=== PATIENT | male | born 1955 | race Caucasian/White ===

== ENCOUNTER 2016-12-02 15:06 | Emergency (ER) | payer BC ==
[2016-12-02] MEDS ORDERED: Sodium Chloride 0.9% 2.5 ML Syringe FLUSH PRN (15:27)
[2016-12-02] MEDS ORDERED: Sodium Chloride 0.9% 10 ML Syringe FLUSH PRN (15:27)
--- NOTE | 2016-12-02 15:27 | EDM.PDOC ---
ED HPI GENERAL MEDICAL PROBLEM - General Chief Complaint: Abdominal Pain Stated Complaint: RIGHT SIDE IN PAIN Time Seen by Provider: 12/02/16 15:25 Source of Information: Reports: Patient, Family History Limitations: Reports: No Limitations - History of Present Illness INITIAL COMMENTS - FREE TEXT/NARRATIVE: HISTORY AND PHYSICAL: []61-year-old male presenting with right sided lower quadrant pain History of Present Illness: []Pain began this morning and has gradually worsened throughout the day Patient ate pizza for lunch without any difficulties History of kidney stones History of hematuria Review of Systems: As per history of present illness and below otherwise all systems reviewed and negative. Past medical history: As per history of present illness and as reviewed below otherwise noncontributory. Surgical history: As per history of present illness and as reviewed below otherwise noncontributory. Social history: No reported history of drug or alcohol abuse. Family history: As per history of present illness and as reviewed below otherwise noncontributory. Physical exam: Alert gentleman who looks nontoxic speaking in full sentences without shortness of breath HEENT: Atraumatic, normocehpalic, pupils reactive, negative for conjunctival pallor or scleral icterus, mucous membranes moist, throat clear, neck supple, nontender, trachea midline. Lungs: Clear to auscultation, breath sounds equal bilaterally, chest non tender. Heart: S1S2, regular, negative for clicks, rubs, or JVD. Abdomen: Soft, rounded, mild tenderness no rebound no guarding. Negative for masses or hepatossplenmegaly. Negative for costovertebral tenderness. Pelvis: Stable nontender. Genitourinary: Deferred. Rectal: Deferred Extremities: Atraumatic, negative for cords or calf pain. Neurovascular unremarkable. Neuro: Awake, alert, oriented. Cranial nerves II through XII unremarkable. Cerebellum unremarkable. Motor and sensory unremarkable throughout. Exam nonfocal. Discussed with patient and his the nonspecific results of his CT abdomen pelvis. No gross abnormalities are evident. There is some stool on the right side insistent for his pain is. also gas. Diagnostics: [CT abdomen pelvis with contrast] UA urine culture CBC CMP and lipase amylase Therapeutics: [Normal saline ] Impression: [Abdominal pain Chronic hematuria] Plan: [Discharged to home Follow up with Dr. Frederick as discussed for the hematuria See your primary care provider this week for follow-up] Definitive disposition and diagnosis as appropriate pending reevaluation and review of above. Onset: Today, Gradual Abdominal Pain Score (Numeric/FACES): 4 - Related Data Allergies Allergy/AdvReac Type Severity Reaction Status Date / Time polyethylene glycol 3350 Allergy Nausea and Verified 12/02/16 15:13 [From Miralax] Vomiting Home Meds: Home Meds Albuterol Sulfate [Proair Hfa] 1 - 2 puff INH Q4H PRN 02/26/16 [History] Past Medical History HEENT History: Reports: Allergic Rhinitis, Glaucoma Other HEENT History: wears glasses Cardiovascular History: Reports: None Respiratory History: Reports: None Gastrointestinal History: Reports: None Other Gastrointestinal History: abdominal hernia Genitourinary History: Reports: None Other Genitourinary History: having a "bladder test" with Dr. Frederick today Musculoskeletal History: Reports: None Other Musculoskeletal History: hip and knee pain Neurological History: Reports: Seizure Other Neuro History: 20 years ago, had 5 seizures in 5 days (due to "exhaustion ") Psychiatric History: Reports: None Endocrine/Metabolic History: Reports: Obesity/BMI 30+ Hematologic History: Reports: None Immunologic History: Reports: None Oncologic (Cancer) History: Reports: None Dermatologic History: Reports: None - Infectious Disease History Infectious Disease History: Reports: Chicken Pox, Measles - Past Surgical History Head Surgeries/Procedures: Reports: None Cardiovascular Surgical History: Reports: None Respiratory Surgical History: Reports: None GI Surgical History: Reports: Colonoscopy, EGD, Hernia, Abdominal, Hernia Repair /Other Endocrine Surgical History: Reports: None Neurological Surgical History: Reports: None Oncologic Surgical History: Reports: None Social & Family History - Tobacco Use Smoking Status *Q: Former Smoker Years of Tobacco use: 43 Packs/Tins Daily: 2 Used Tobacco, but Quit: Yes Month Tobacco Last Used: 18 - Alcohol Use Days Per Week of Alcohol Use: 1 Number of Drinks Per Day: 3 Total Drinks Per Week: 3 - Recreational Drug Use Recreational Drug Use: No Drug Use in Last 12 Months: No ED ROS GENERAL - Review of Systems Review Of Systems: ROS reveals no pertinent complaints other than HPI. ED EXAM, RENAL/ - Physical Exam Exam: See Below (See dictation) Course - Vital Signs Last Recorded V/S: Last Vital Signs Temp 36.4 C 12/02/16 15:13 Pulse 74 12/02/16 15:13 Resp 16 09/18/17 15:13 BP 165/83 H 12/02/16 15:13 Pulse Ox 96 12/02/16 15:13 - Orders/Labs/Meds Orders: Active Orders 24 hr Category Date Time Status Abdomen Pelvis w Cont [CT] Stat Exams 12/02/16 15:28 Taken CULTURE URINE [RM] Stat Lab 12/02/16 16:13 Received Sodium Chloride 0.9% [Saline Flush] Med 12/02/16 15:27 Active 10 ml FLUSH ASDIRECTED PRN Sodium Chloride 0.9% [Saline Flush] Med 12/02/16 15:27 Active 2.5 ml FLUSH ASDIRECTED PRN Saline Lock Insert [OM.PC] Stat Oth 12/02/16 15:27 Ordered Medication Orders Sodium Chloride (Saline Flush) 10 ml FLUSH ASDIRECTED PRN PRN Reason: Keep Vein Open Last Admin: 12/02/16 15:44 Dose: 10 ml Sodium Chloride (Saline Flush) 2.5 ml FLUSH ASDIRECTED PRN PRN Reason: Keep Vein Open Last Admin: 12/02/16 15:44 Dose: 2.5 ml Labs: Laboratory Tests 12/02/16 12/02/16 12/02/16 Range/Units 15:40 15:40 16:13 WBC 5.85 (4.0-11.0) K/uL RBC 5.22 (4.50-5.90) M/uL Hgb 15.8 (13.0-17.0) g/dL Hct 45.5 (38.0-50.0) % MCV 87.2 (80.0-98.0) fL MCH 30.3 (27.0-32.0) pg MCHC 34.7 (31.0-37.0) g/dL RDW Std Deviation 43.1 (28.0-62.0) fl RDW Coeff of Bryn 14 (11.0-15.0) % Plt Count 216 (150-400) K/uL MPV 9.70 (7.40-12.00) fL Neut % (Auto) 55.9 (48.0-80.0) % Lymph % (Auto) 27.7 (16.0-40.0) % Larue % (Auto) 14.0 (0.0-15.0) % Eos % (Auto) 1.7 (0.0-7.0) % Baso % (Auto) 0.7 (0.0-1.5) % Neut # (Auto) 3.3 (1.4-5.7) K/uL Lymph # (Auto) 1.6 (0.6-2.4) K/uL Larue # (Auto) 0.8 (0.0-0.8) K/uL Eos # (Auto) 0.1 (0.0-0.7) K/uL Baso # (Auto) 0.0 (0.0-0.1) K/uL Nucleated RBC % 0.0 /100WBC Nucleated RBCs # 0 K/uL Sodium 141 (136-146) mmol/L Potassium 4.1 (3.5-5.1) mmol/L Chloride 107 (98-110) mmol/L Carbon Dioxide 24 (21-31) mmol/L BUN 18 (6.0-23.0) mg/dL Creatinine 1.4 (0.6-1.5) mg/dL Est Cr Clr Drug Dosing 52.46 mL/min Estimated GFR (MDRD) 51.7 ml/min Glucose 118 H (60-110) mg/dL Calcium 9.0 (8.8-10.8) mg/dL Total Bilirubin 0.6 (0.1-1.5) mg/dL AST 28 (5-40) IU/L ALT 57 H (8-54) IU/L Alkaline Phosphatase 109 (40-150) Total Protein 7.2 (6.0-8.0) g/dL Albumin 4.2 (3.4-4.8) g/dL Globulin 3.0 (2.0-3.5) g/dL Albumin/Globulin Ratio 1.4 (1.3-2.8) Amylase 56 (10-90) U/L Lipase 35 (7-80) U/L Urine Color YELLOW Urine Appearance CLEAR Urine pH 6.0 (5.0-8.0) Ur Specific [place] 1.025 (1.001-1.035) Urine Protein NEGATIVE (NEGATIVE) mg/dL Urine Glucose (UA) NEGATIVE (NEGATIVE) mg/dL Urine Ketones NEGATIVE (NEGATIVE) mg/dL Urine Occult Blood LARGE H (NEGATIVE) Urine Nitrite NEGATIVE (NEGATIVE) Urine Bilirubin NEGATIVE (NEGATIVE) Urine Urobilinogen 0.2 (<2.0) EU/dL Ur Leukocyte Esterase NEGATIVE (NEGATIVE) Urine RBC 60-65 (0-2/HPF) Urine WBC 0-1 (0-5/HPF) Ur Epithelial Cells FEW (NONE-FEW) Urine Bacteria FEW (NEGATIVE) Meds: Medications Generic Name Dose Route Start Last Admin Trade Name Freq PRN Reason Stop Dose Admin Sodium Chloride 10 ml 12/02/16 15:27 12/02/16 15:44 Saline Flush FLUSH 10 ml ASDIRECTED PRN Administration Keep Vein Open Sodium Chloride 2.5 ml 12/02/16 15:27 12/02/16 15:44 Saline Flush FLUSH 2.5 ml ASDIRECTED PRN Administration Keep Vein Open Discontinued Medications Generic Name Dose Route Start Last Admin Trade Name Freq PRN Reason Stop Dose Admin Sodium Chloride 1,000 mls @ 999 mls/hr 12/02/16 15:28 12/02/16 15:44 Normal Saline IV 12/02/16 16:28 999 mls/hr STAT ONE Administration Iopamidol 75 ml 12/02/16 16:53 12/02/16 17:03 Isovue Multipack-370 (76%) IVPUSH 12/02/16 16:54 75 ml ONETIME STA Administration Departure - Departure Time of Disposition: 17:37 Disposition: Home, Self-Care 01 Condition: Good Clinical Impression: Abdominal pain Qualifiers: Abdominal location: right lower quadrant Qualified Code(s): R10.31 - Right lower quadrant pain - Discharge Information Instructions: Abdominal Pain, Adult, [id number] Referrals: PCP,None [Primary Care Provider] - Forms: ED Department Discharge Additional Instructions: The following information is given to patients seen in the emergency department who are being discharged to home. This information is to outline your options for follow-up care. We provide all patients seen in our emergency department with a follow-up referral. The need for follow-up, as well as the timing and circumstances, are variable depending upon the specifics of your emergency department visit. If you don't have a primary care physician on staff, we will provide you with a referral. We always advise you to contact your personal physician following an emergency department visit to inform them of the circumstance of the visit and for follow-up with them and/or the need for any referrals to a consulting specialist. The emergency department will also refer you to a specialist when appropriate. This referral assures that you have the opportunity for followup care with a specialist. All of these measure are taken in an effort to provide you with optimal care, which includes your followup. Under all circumstances we always encourage you to contact your private physician who remains a resource for coordinating your care. When calling for followup care, please make the office aware that this follow-up is from your recent emergency room visit. If for any reason you are refused follow-up, please contact the [facility] emergency department at and asked to speak to the emergency department charge nurse. Please follow-up with Dr. Frederick as discussed Return if symptoms worsen overnight Follow-up with your primary care provider this week and call for an appointment - My Orders Last 24 Hours: My Active Orders 12/02/16 15:27 Sodium Chloride 0.9% [Saline Flush] 10 ml FLUSH ASDIRECTED PRN Sodium Chloride 0.9% [Saline Flush] 2.5 ml FLUSH ASDIRECTED PRN Saline Lock Insert [OM.PC] Stat 12/02/16 15:28 Abdomen Pelvis w Cont [CT] Stat 12/02/16 16:13 CULTURE URINE [RM] Stat - Assessment/Plan Last 24 Hours: My Active Orders 12/02/16 15:27 Sodium Chloride 0.9% [Saline Flush] 10 ml FLUSH ASDIRECTED PRN Sodium Chloride 0.9% [Saline Flush] 2.5 ml FLUSH ASDIRECTED PRN Saline Lock Insert [OM.PC] Stat 12/02/16 15:28 Abdomen Pelvis w Cont [CT] Stat 12/02/16 16:13 CULTURE URINE [RM] Stat
[2016-12-02] MEDS ORDERED: Sodium Chloride 0.9% 1,000 ML IV ONE (15:28)
[2016-12-02] MEDS ORDERED: Iopamidol 755 MG/ML 500 ML Multipack Bottle IVPUSH STA (16:53)
[2016-12-02 18:25] VITALS: BP 173/89
--- NOTE | 2016-12-03 11:27 | CT ---
EXAM DATE: 12/02/16 PATIENT'S AGE: 61 Patient: FAHAD MARTÍNEZ Facility: [place], [place] Site . Site : 1955 Study: CT Abdomen/Pelvis [id number]/18/2017 5:09:24 PM Ordering Physician: Doctor Romeo Final Report: INDICATION: Right lower quadrant pain, onset earlier today. TECHNIQUE: CT abdomen and pelvis acquired with i.v. 75 mL Isovue 370. Coronal and sagittal reformats were obtained. COMPARISON: None FINDINGS: Intensive Care Nurse CT images: Nonobstructive bowel gas pattern. Lower chest: Unremarkable. Liver: Diffuse low attenuation to the liver parenchyma. Spleen: Unremarkable. Pancreas: Unremarkable. Gallbladder and bile ducts: Unremarkable. Kidneys: Unremarkable. No kidney or ureteral stones and no hydronephrosis seen. Adrenal glands: Unremarkable. GI tract: Unremarkable. The appendix is normal in appearance and size. Vascular: Unremarkable. Lymph nodes: Unremarkable. Miscellaneous: Unremarkable. No pneumoperitoneum is seen. No significant ascites is noted. Pelvic Organs: Unremarkable. Bones: Unremarkable for age. IMPRESSION: 1. Normal appendix. 2. No clear etiology identified for patient`s clinical symptoms of right lower quadrant abdominal pain. 3. Fatty infiltration of liver. Dictated by Tray Caldwell MD @ 12/02/2016 5:25:22 PM Dictated by: Tray Caldwell MD @ 12/02/2016 17:25:31 (Electronic Signature) Report Signed by Proxy. MONTEFI[facility] NYACK HOSPITALJasper
== END 2016-12-02 18:05 | disposition home or self-care (01) ==
LOC: MW.ED 15:06
DX: R10.31 Right lower quadrant pain (principal); R31.9 Hematuria, unspecified; E66.9 Obesity, unspecified; Z87.891 Personal history of nicotine dependence; Z68.39 Body mass index [BMI] 39.0-39.9, adult
CPT/HCPCS: 36415; 74177; 80053; 81001; 82150; 83690; 85025; 87086; 96360; 99284; J7040; Q9967; 99283

== ENCOUNTER 2017-08-01 06:45 | Day surgery (SDC) | payer OTHER ==
[~2017-08-01 06:45] MED LIST: Lactated Ringers 1,000 ML IV SCH
[2017-08-01] MEDS ORDERED: Lidocaine 2% 5 ML SDV ONE (09:59)
[2017-08-01] MEDS ORDERED: fentaNYL 100 MCG/2 ML SDV ONE (10:00)
[2017-08-01] MEDS ORDERED: Propofol 200 MG/20 ML SDV ONE (10:00)
[2017-08-01] MEDS ORDERED: Midazolam 1 MG/ML 2 ML SDV ONE (10:00)
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
--- NOTE | 2017-08-01 12:41 | CR ---
EXAMINATION: Portable chest radiograph. HISTORY: Distention. FINDINGS: The trachea is midline. The cardiomediastinal silhouette is within normal limits. Mild left basilar a telectasis. No pleural effusion or pneumothorax. No free air under the diaphragm. Osseous structures appear unremarkable. IMPRESSION: No acute cardiopulmonary process.
--- NOTE | 2017-08-01 12:45 | PCM.POSTAN ---
POST ANESTHESIA ASSESSMENT - MENTAL STATUS Mental Status: Alert, Oriented - VITAL SIGNS Pulse Rate: 77 SaO2: 95 (RA) Resp Rate: 12 Blood Pressure: 143/89 - RESPIRATORY Respiratory Status: Respiratory Rate WNL, Airway Patent, O2 Saturation Stable - CARDIOVASCULAR CV Status: Pulse Rate WNL, Blood Pressure Stable - GASTROINTESTINAL GI Status: No Symptoms - PAIN Pain Score: 0 - POST OP HYDRATION Hydration Status: Adequate & Stable - OBSERVATIONS Free Text/Narrative:: CXR done - negative report per Dr. Kennedy and patient without pain. Expect patient to proceed to phase II recovery.
--- NOTE | 2017-08-01 12:55 | PCM.OPNOTE ---
- General Post-Op/Procedure Note Date of Surgery/Procedure: 08/01/17 Findings: see dict [id number] Pre Op Diagnosis: change in bowel habits and gerd Post-Op Diagnosis: Same Anesthesia Technique: Moderate Sedation Primary Surgeon: Vidal Kennedy Pathology: egd bx Complications: None Condition: Good Free Text/Narrative:: Intake & Output 07/31/17 08/01/17 08/01/17 22:59 06:59 14:59 Intake Total 700 Balance 700
--- NOTE | 2017-08-01 13:14 | PCM48HPAN ---
Post Anesthesia Note - EVALUATION WITHIN 48HRS OF ANESTHETIC Vital Signs in Normal Range: Yes Patient Participated in Evaluation: Yes Respiratory Function Stable: Yes Airway Patent: Yes Cardiovascular Function Stable: Yes Hydration Status Stable: Yes Pain Control Satisfactory: Yes Nausea and Vomiting Control Satisfactory: Yes Pulse Rate: 77 Resp Rate: 14 Blood Pressure: 143/89
[2017-08-01 13:30] VITALS: BP 117/83
--- NOTE | 2017-08-01 14:02 | OR ---
SURGEON: Vidal Kennedy MD DATE OF PROCEDURE: 08/01/2017 PREOPERATIVE DIAGNOSES: 1. Gastroesophageal reflux disease. 2. Change in bowel habit. 3. Increased diarrhea. POSTOPERATIVE DIAGNOSES: Esophagogastroduodenoscopy diagnosis: Gastroesophageal reflux disease. Colonoscopy diagnosis: Diverticulosis. PROCEDURE PERFORMED: Esophagogastroduodenoscopy with biopsy and colonoscopy. PROCEDURE IN DETAIL: EGD: The patient was taken to the endoscopy room, and with the EMPLOYMENT ADVISOR, Diprivan was administered. A well-lubricated EGD scope was gently inserted through the oropharynx, down the esophagus, passing through the gastroesophageal junction, into the stomach. The mucosa was examined upon the passage. Any etiology will be noted. Once in the stomach, we continued to advance to the distal antrum, passed through the pylorus into the second portion of the duodenum. Again, the mucosa was examined for any abnormality and etiology. The scope was then retrieved back to the stomach and then retroflexed to look at the fundus of the stomach. If a biopsy was indicated, we will biopsy the antrum, body, and gastroesophageal junction. The air will be sucked out while the scope is retrieved to reduce the patient's discomfort. The patient tolerated the procedure well. There were no intraoperative complications. Dr. Kennedy was present through the whole procedure. Prior to surgery, a time-out had been called, the patient identified, procedure identified and antibiotic administered. Colonoscopy procedure: The patient was taken to the endoscopy room. A time out was called, patient identified, and procedure identified. Diprivan was then administrated. Patient went from awake to sleep, hearing doctor talking or door closing is normal. Perineum inspection and digital examination were then performed. A well- lubricated colonoscope was gently inserted through the rectum, advanced past the rectosigmoid junction, the descending colon, splenic flexure, transverse colon, hepatic flexure, ascending colon, arrived to the cecum. Cecum was identified as dictated in the finding. Then the scope was carefully withdrawn while attention was paid to the mucosal surface for any abnormality. Air will be sucked out during the scope withdrawal. At the rectum, retroflexed to examine any rectal diseases, fistula or hemorrhoids. Patient tolerated procedure well. There were no intraoperative complications, and Dr. Kennedy was present throughout the whole procedure. FINDINGS: EGD findings: 1. The patient is easily sedated with EMPLOYMENT ADVISOR and Diprivan. The patient is soundly snoring. 2. Oropharynx and proximal esophagus are free of disease, stricture, inflammation, or ulceration. distal esophagus at GE junction at 40 shows some mild salmon-colored change consistent with acid reflux and GERD. Stomach rugae is normal in appearance. There is no bile, food, blood, or ulcer observed. Antrum is a little bit inflamed. Duodenum was grossly normal. Scope retrieved back to the stomach. Retroflexed to look at the fundus of stomach, there is no hiatal hernia. Biopsy done at antrum, body, and GE junction at 40 and sucked out gas while scope pulling out. Colonoscopy findings: 1. The patient is easily sedated with EMPLOYMENT ADVISOR and Diprivan. The patient is soundly snoring. 2. Bowel prep is average. Large amount of opaque liquid stool, no semi-formed stool. 3. Colon is rather straight forward. Cecum indicated by ileocecal fold, one- to-one indentation, light admittance, appendiceal orifice is not observed with some irrigation mucosa examined upon scope pulling out. The patient has mild diverticulosis on the left side of the colon. No signs or symptoms of diverticulitis. No inflammation, polyp, mass, growth, stricture, ulceration, AV malformation, none of those and the patient has mild external hemorrhoids. The patient would benefit from repeat colonoscopy in 10 years from today or if clinically indicated otherwise. AILYN / YADIEL /[id number]
== END 2017-08-01 13:45 | disposition home or self-care (01) ==
LOC: MW.SDS 06:45
PROVIDERS: ATTEND Surgery
DX: K21.0 Gastro-esophageal reflux disease with esophagitis (principal); K57.30 Diverticulosis of large intestine without perforation or abscess without bleeding; K64.4 Residual hemorrhoidal skin tags; R19.4 Change in bowel habit; R19.7 Diarrhea, unspecified; J20.9 Acute bronchitis, unspecified; E66.9 Obesity, unspecified; Z68.34 Body mass index [BMI] 34.0-34.9, adult; N40.0 Benign prostatic hyperplasia without lower urinary tract symptoms; Z87.891 Personal history of nicotine dependence; Z86.010 Personal history of colon polyps; Z79.51 Long term (current) use of inhaled steroids; Z79.899 Other long term (current) drug therapy; Z88.8 Allergy status to other drugs, medicaments and biological substances
CPT/HCPCS: 43239; 45378; 71045; J2250; J3010; J7120; 88305; 88312; J2704

== ENCOUNTER 2017-08-04 10:45 | Observation (INO) | payer OTHER ==
[2017-08-04] MEDS ORDERED: Sodium Chloride 0.9% 10 ML Syringe FLUSH PRN (10:57)
[2017-08-04] MEDS ORDERED: Sodium Chloride 0.9% 2.5 ML Syringe FLUSH PRN (10:57)
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
[2017-08-04 12:12] LABS: CHLORIDE,CL 102 mmol/L (98-107); SODIUM,NA 136 mmol/L (136-148)
[2017-08-04] MEDS ORDERED: Acetaminophen 325 MG Tab PO PRN (14:12)
--- NOTE | 2017-08-04 14:14 | PCM.SN ---
- Free Text/Narrative Note: pt has post procedure ileus and pain, admit for observation; wbc = 8, and ct abd and pelvis, mildly dilated small bowel, no free air; clear liquid and obs
--- NOTE | 2017-08-04 14:21 | CT ---
CT of the abdomen and pelvis with contrast. HISTORY: Pain TECHNIQUE: Axial CT images were obtained of the abdomen and pelvis following administration of 100 mL of Isovue-370 in the right arm without complication. Coronal and sagittal reconstructions obtained. FINDINGS: The lung bases are clear, no pleural effusion. There is at least moderate fatty infiltration of the liver. The spleen, adrenal glands, and pancreas appear normal. Cholelithiasis without evidence of cholecystitis. No retroperitoneal lymphadenopathy. The kidneys enhance and function symmetrically without evidence of obstructive uropathy. Punctate non obstructing right renal stone is noted. There is a small amount of fluid noted within the colon. Small bowel is noted dilated up to 3.6 cm. T here is no transition point noted. Trace abdominal ascites. No free air. Minimal fat-containing right inguinal hernia. No suspicious osseous abnormalities. IMPRESSION: 1. Mildly prominent loops of small bowel without a transition point, likely representing an ileus. 2. Trace abdominal ascites of uncertain etiology. 3. Fatty infiltration of the liver. 4. Cholelithiasis without evidence cholecystitis.
[2017-08-04] MEDS: Lactated Ringers 1,000 ML IV SCH (16:29)
[2017-08-04] MEDS ORDERED: Iopamidol 755 MG/ML 500 ML Multipack Bottle IVPUSH STA (19:07)
[2017-08-05] MEDS: Lactated Ringers 1,000 ML IV SCH (06:08)
--- NOTE | 2017-08-05 10:22 | CONS ---
DATE OF CONSULTATION: 08/04/2017 DATE OF : 1955 PRIMARY CARE PHYSICIAN: Tarah Erickson CONCERNING QUESTION: Abdominal pain, postprocedure. HISTORY OF PRESENT ILLNESS: The patient is a 62-year-old morbidly obese gentleman who had dual scoped by myself 2 days ago on Friday and postop patient went home. However, over the weekend, the patient was not able to have a bowel movement, also abdominal pain and the patient self-administered 16 tablets of Dulcolax, finally had a well-formed stool 12 hours before the emergency room visit. However, after moving the stool, the patient still has pain and called my office and I encouraged to come to the emergency room. In the emergency room workup showed white count of 8 and CAT scan is no free air but with mildly dilated small bowel consistent with postoperative ileus. Currently patient is fine, but still pretty sensitive and has abdominal pain. Past medical history, past surgical history, allergies, and medication please refer to Friday note for details. PHYSICAL EXAMINATION: GENERAL: Very anxious young gentleman in no acute distress. HEENT: Normocephalic, atraumatic. Sclerae anicteric. LUNGS: Clear to auscultation. HEART: Regular rate and rhythm. ABDOMEN: Distended but soft with diffuse tenderness and no rebound tenderness. Normal bowel sounds. LABORATORY DATA: White count is 8. IMPRESSION: Postoperative ileus and tenderness. We will admit for observation and put the patient on clear liquid diet and serial abdominal exam with continuous observation and monitoring. No narcotic pain medication, only Tylenol, the patient is aware of that. As always, thank you for the kind referral. AILYN COTTO /[id number]
[2017-08-05 11:53] VITALS: BP 115/78
== END 2017-08-05 15:54 | disposition home or self-care (01) ==
LOC: MW.ED 10:45 → MW.MS 15:08
PROVIDERS: ADMIT Surgery; ATTEND Surgery
DX: K56.7 Ileus, unspecified (principal); J30.9 Allergic rhinitis, unspecified; K21.9 Gastro-esophageal reflux disease without esophagitis; R56.9 Unspecified convulsions; E66.9 Obesity, unspecified; Z68.32 Body mass index [BMI] 32.0-32.9, adult; Z88.8 Allergy status to other drugs, medicaments and biological substances; Z79.899 Other long term (current) drug therapy; Z79.51 Long term (current) use of inhaled steroids; Z98.890 Other specified postprocedural states
CPT/HCPCS: 36415; 74177; 80053; 83690; 85025; 93005; 96360; 96361; 99285; A9270; G0378; J7120; Q9967

== ENCOUNTER 2019-01-07 22:01 | Emergency (ER) | payer OTHER ==
[2019-01-07] MEDS ORDERED: Sodium Chloride 0.9% 1,000 ML IV ONE (22:10)
[2019-01-07] MEDS ORDERED: Sodium Chloride 0.9% 10 ML Syringe FLUSH PRN (22:10)
[2019-01-07] MEDS ORDERED: Aspirin 81 MG Tab.Chew PO ONE (22:10)
[2019-01-07] MEDS ORDERED: Sodium Chloride 0.9% 2.5 ML Syringe FLUSH PRN (22:10)
[2019-01-07] MEDS ORDERED: Ondansetron 4 MG/2 ML SDV IVPUSH ONE (22:24)
[2019-01-07] MEDS ORDERED: HYDROmorphone 1 MG/ML Syringe IVPUSH ONE (22:25)
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
[2019-01-07 22:39] LABS: BLOOD UREA NITROGEN,BUN 16 mg/dL (7.0-18.0); CARBON DIOXIDE,CO2 29.6 mmol/L (21.0-32.0); CHLORIDE,CL 100 mmol/L (98-107); GLUCOSE RANDOM 141 mg/dL (74-106); LIPASE 247 U/L (73-393); POTASSIUM,K 4.4 mmol/L (3.5-5.1); SODIUM,NA 138 mmol/L (136-148)
--- NOTE | 2019-01-07 23:03 | CR ---
INDICATION: Chest pain TECHNIQUE: Frontal view of the chest. COMPARISON: Single view chest 08/01/2017 FINDINGS/IMPRESSION: The lungs are clear. There is no sizable pleural effusion or pneumothorax. The cardiomediastinal silhouette is normal. The visualized osseous structures are unremarkable. Dictated by Miguelina Hernandez MD @ Jan 07 2019 11:00PM Signed by Dr. Miguelina Hernandez @ Jan 07 2019 11:01PM
[2019-01-07] MEDS ORDERED: Iopamidol 755 MG/ML 500 ML Multipack Bottle IVPUSH STA (23:50)
--- NOTE | 2019-01-08 00:21 | CT ---
INDICATION: Epigastric pain TECHNIQUE: Contrast enhanced axial CT imaging through the chest. 100 mL Isovue 370 contrast agent was administered intravenously. Sagittal and coronal reconstructions are provided. Examination was done concurrently with a CT of the abdomen and pelvis. COMPARISON: Single-view chest 01/07/2019 FINDINGS: The lungs are clear. There is no pleural effusion or pneumothorax. The heart is non-enlarged. There is normal caliber of the main pulmonary artery and thoracic aorta. There is no mediastinal lymphadenopathy. The thoracic osseous structures are unremarkable. IMPRESSION: No acute intrathoracic process. Please note that all CT scans at this facility use dose modulation, iterative reconstruction, and/or weight-based dosing when appropriate to reduce radiation dose to as low as reasonably achievable. Dictated by Miguelina Hernandez MD @ Jan 08 2019 12:19AM Signed by Dr. Miguelina Hernandez @ Jan 08 2019 12:19AM
--- NOTE | 2019-01-08 00:32 | CT ---
Indication: Epigastric pain Technique: Contrast enhanced axial CT imaging through the abdomen and pelvis. 100 mL Isovue 370 contrast agent was administered intravenously. Sagittal and coronal reconstructions are provided. Examination was done concurrently with contrast enhanced CT of the chest. Comparison: CT abdomen pelvis with contrast 08/04/2017 Findings: There is decreased attenuation of the liver parenchyma, compatible with steatosis. There is normal enhancement of the portal venous system. A small hyperdense stone is again demonstrated within the gallbladder. There is no gallbladder wall thickening or pericholecystic fluid. The common bile duct is prominent, measuring up to 10 mm, increased since prior. There is no pancreatic ductal dilatation. No abnormality is appreciated in the pancreas. The spleen, adrenal glands, and kidneys are unremarkable. There is no abdominal lymphadenopathy. There is normal caliber of the abdominal aorta. Hyperdense material within the gastric fundus likely represents ingested food. A few prominent small bowel loops in the right lower quadrant remain within normal limits. The appendix is noninflamed. The colon is unremarkable. No inflammatory changes are demonstrated in the mesentery. The visualized osseous structures are unremarkable. The included lung bases are clear. Impression: 1. Mildly dilated common bile duct, new since prior study of 08/04/2017. No definite obstructive process demonstrated in the pancreatic head by CT. Further evaluation with MRCP is suggested to exclude choledocholithiasis. 2. Hepatic steatosis and cholelithiasis, similar to prior. Please note that all CT scans at this facility use dose modulation, iterative reconstruction, and/or weight-based dosing when appropriate to reduce radiation dose to as low as reasonably achievable. Dictated by Miguelina Hernandez MD @ Jan 08 2019 12:19AM Signed by Dr. Miguelina Hernandez @ Jan 08 2019 12:31AM
[2019-01-08] MEDS ORDERED: metroNIDAZOLE/Normal Saline 500 MG in Premix Bag 1 BAG IV ONE (01:07)
[2019-01-08] MEDS ORDERED: Ciprofloxacin in D5W 400 MG in Premix Bag 1 BAG IV SCH ×2 (01:15)
[2019-01-08] MEDS ORDERED: Sodium Chloride 0.9% 1,000 ML IV SCH (01:30)
[2019-01-08 01:48] VITALS: BP 150/98; PULSE 73
== END 2019-01-08 02:10 ==
LOC: MW.ED 22:01
DX: K80.50 Calculus of bile duct without cholangitis or cholecystitis without obstruction (principal); E66.9 Obesity, unspecified; Z68.41 Body mass index [BMI] 40.0-44.9, adult; Z87.891 Personal history of nicotine dependence; Z88.8 Allergy status to other drugs, medicaments and biological substances
CPT/HCPCS: 36415; 71045; 71260; 74177; 80053; 83690; 84484; 85025; 85610; 93005; 96361; 96365; 96375; 99285; A9270; J0744; J1170; J2405; J3490; J7040; Q9967

== ENCOUNTER 2019-08-17 12:08 | Emergency (ER) | payer OTHER ==
[2019-08-17] MEDS ORDERED: Sodium Chloride 0.9% 1,000 ML IV ONE (12:18)
[2019-08-17] MEDS ORDERED: Pantoprazole 80 MG in Sodium Chloride 0.9% 20 ML IVPUSH ONE (12:18)
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
[2019-08-17 12:50] LABS: CARBON DIOXIDE,CO2 27.1 mmol/L (21.0-32.0); POTASSIUM,K 4.1 mmol/L (3.5-5.1)
--- NOTE | 2019-08-17 13:08 | CR ---
Chest: Portable view of the chest was obtained. Comparison: Prior chest x-ray of 11/28/15. Heart size and mediastinum are normal. Lungs are clear with no acute parenchymal change. Bony structures are grossly intact. Impression: 1. Nothing acute is seen on portable chest x-ray. Diagnostic code #1 This report was dictated in MDT
[2019-08-17] MEDS ORDERED: Iopamidol 755 Mg/ML 100 ML Bottle IVPUSH STA (13:15)
[2019-08-17] MEDS ORDERED: Ketorolac 15 MG/ML SDV IVPUSH ONE (13:40)
--- NOTE | 2019-08-17 13:46 | CT ---
CT abdomen and pelvis Technique: Multiple axial sections were obtained from above the dome of the diaphragm inferiorly through the pubic symphysis. Intravenous contrast was utilized. No oral contrast has been given. Comparison: Prior CT abdomen and pelvis exam of 01/07/19. Findings: Visualized lung bases show nothing acute. Liver shows mild fatty infiltration which is not as prominent as previous study. Spleen shows no focal abnormality. Adrenal glands show no nodule. Large low density abnormality is noted off the tail of the pancreas measuring about 3 5.7 cm in AP dimension. There is medial extension of this finding along the inferior and anterior aspect of the pancreas. Findings are most likely due to complicated pancreatic pseudocyst. This finding is an interval change from previous study. Kidneys show symmetric contrast enhancement. There is asymmetric enhancement with decreased enhancement on the right side. This is caused by an obstructing right ureteral stone located slightly past the UPJ measuring approximately 3.2 mm. Small nonobstructing stone is noted within the left kidney. Small nonobstructing stone is noted within the right kidney. Aorta and iliac vessels shows atherosclerotic calcification without aneurysm. No retroperitoneal adenopathy or mesenteric abnormalities are seen. No pelvic mass or adenopathy is seen. No free fluid or inflammatory change is seen. Small soft tissue findings seen within the bladder showing several adjacent calcifications. Difficult to exclude an early transitional cell carcinoma. Bone window settings were reviewed. No acute osseous finding is appreciated. Impression: 1. Obstructing 3.2 mm stone within the proximal right ureter located slightly past the UPJ. This causes asymmetric enhancement of the kidneys between right and left side. 2. Large low density finding within the tail of the pancreas which extends along the inferior and anterior pancreas. This is an interval change from prior exam and most likely is due to a complicated pancreatic pseudocyst. Recommend ultrasound exam to see if this finding can be visualized by that modality to allow for follow-up. 3. Small nonobstructing stone is noted within each kidney. 4. Small soft tissue abnormality within the bladder and difficult to exclude an early transitional cell carcinoma. Consider cystoscopy to further evaluate. Diagnostic code #9 This report was dictated in MDT
[2019-08-17 15:01] VITALS: BP 139/82; PULSE 74
== END 2019-08-17 14:45 | disposition home or self-care (01) ==
LOC: MW.ED 12:08
DX: K86.3 Pseudocyst of pancreas (principal); N20.9 Urinary calculus, unspecified; N32.9 Bladder disorder, unspecified; R11.2 Nausea with vomiting, unspecified; E66.9 Obesity, unspecified; Z68.32 Body mass index [BMI] 32.0-32.9, adult; Z88.8 Allergy status to other drugs, medicaments and biological substances; Z79.899 Other long term (current) drug therapy
CPT/HCPCS: 36415; 71045; 74177; 80053; 81001; 85025; 85379; 93005; 96361; 96374; 96375; 99285; C9113; J1885; J7030; Q9967; 99283

== ENCOUNTER 2019-11-21 15:35 | Emergency (ER) | payer OTHER ==
--- NOTE | 2019-11-21 16:04 | EDM.PDOC ---
ED HPI GENERAL MEDICAL PROBLEM - General Chief Complaint: Genitourinary Problem Stated Complaint: URINARY INFECTION Time Seen by Provider: 11/21/19 15:36 - History of Present Illness INITIAL COMMENTS - FREE TEXT/NARRATIVE: HISTORY AND PHYSICAL: History of present illness: Patient is a 64-year-old male who presents to the emergency room with complaints of dysuria, frequency and left low abdominal pain that radiates into his flank. Patient states he has a longstanding history of hematuria and was told he has a "spot on my bladder" in which he has been doctoring with Dr Frederick, urologist. Hematuria and bladder pain are not new to him, has been dealing with this for approximately 2 years. 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 He had a temperature of 101 for several hours. He had the following day off and his pain improved and fever resolved. The next day he had to return to work and again experienced the same symptoms. He presents to the emergency room today as he has increased dysuria and frequency and wanted to be evaluated. Patient den ies any headache, change in vision, syncope or near syncope. Denies any chest pain, back pain, shortness of breath or cough. Denies any nausea, vomiting, diarrhea, or blood in stool. Patient has been eating and drinking appropriately. Review of systems: As per history of present illness and below otherwise all systems reviewed and negative. Past medical history: As per history of present illness and as reviewed below otherwise noncontributory. Surgical history: As per history of present illness and as reviewed below otherwise noncontributory. Social history: See social history for further information Family history: As per history of present illness and as reviewed below otherwise noncontributory. Physical exam: General: Well developed and well nourished 64-year-old male. Alert and orientated x 3. Nontoxic in appearance and in no acute distress. Vital signs are stable and have been reviewed by me. Nursing notes were reviewed. HEENT: Atraumatic, normocephalic, pupils equal and reactive bilaterally, negative for conjunctival pallor or scleral icterus, mucous membranes moist, TMs normal bilaterally, throat clear, neck supple, nontender, trachea midline. No drooling or trismus noted. No meningeal signs. No hot potato voice noted. Lungs: Clear to auscultation, breath sounds equal bilaterally, chest nontender. Normal work of breathing, no accessory muscles used. Heart: S1S2, regular rate and rhythm without overt murmur Abdomen: Soft, nondistended, nontender. Negative for masses or hepatosplenomegaly. Left-sided costovertebral tenderness. Skin: Intact, warm, dry. No lesions or rashes noted. Hematologic: No petechiae or purpra. Mucosa appropriate color and normal nail bed color and refill. Extremities: Atraumatic, moves all extremities per self without difficulty or deficits, negative for cords or calf pain. Neurovascular unremarkable. Neuro: Awake, alert, oriented. Cranial nerves II through XII unremarkable. Cerebellum unremarkable. Motor and sensory unremarkable throughout. Exam nonfocal. Notes: As mentioned previously, the patient has been dealing with bladder mass and issues x2 years, he has been seeing Dr Frederick routinely. MRI of the abdomen shows a pancreatic tail mass with 2 additional nodes seen along the anterior pancreas. 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 He did see a specalist in [place] for the biopsy of the pancreas. Dr. Frederick plans on doing a biopsy of the bladder on 11/25/19. Patient does have a slight leukocytosis. The CT of the abdomen and pelvis shows a stable collection of the pancreatic tail. No internal gas bubbles. Could represent pseudocyst. There is now some mild peripancreatic inflammation change around this collection, radiology recommending to correlate with pancreatitis. 2 x 1.9 cm right bladder base mass, cystoscopy is recommended. 4 mm right distal ureteral stone without significant ureteral dilatation. Possible punctate 1 mm stone in the right bladder base. Patient's kidney stone is located on the right, he does not have any right-sided abdominal pain. On reevaluation the patient is demonstrating that the pain can be reproduced with stretching of the torso. This could be muscle related as it is mostly aggravated when he is "bouncing up and down" on the tractor. He does have a follow-up appointment with Dr. Frederick, on . We discussed signs and symptoms that would prompt them to return to the Emergency Department. Patient is appropriate for discharge. Medication, follow up and supportive care measures were reviewed and discussed. Voices understanding and is agreeable to plan of care. Denies any further questions or concerns at this time. Diagnostics: CBC, CMP, Lipase, UA, CT abd/pelvis Therapeutics: Macrobid Prescription: Macrobid, Flexeril Impression: Dysuria Kidney stone, right Plan: 1. Today your physical exam was normal. Your labs and CT showed no significant concerning findings. Macrobid (antibiotic) has been prescribed for you to take twice daily x 5 days for your urinary symptoms. The flexeril is a muscle relaxant for your pain. 2. Tylenol and/or Ibuprofen as needed 3. Please keep your appointment with Dr Frederick and attend on . If your symptoms should worsen, new symptoms develop or any of the signs and symptoms we discussed should arise please return to the emergency room or call 911 (if needed). Definitive disposition and diagnosis as appropriate pending reevaluation and review of above. Left Abdomen Pain Score (Numeric/FACES): 6 - Related Data Allergies Allergy/AdvReac Type Severity Reaction Status Date / Time polyethylene glycol 3350 Allergy Nausea and Verified 11/19/19 14:20 [From Miralax] Vomiting Home Meds: Home Meds Nitrofurantoin Monohyd/M-Cryst [Macrobid 100 mg Capsule] 100 mg PO BID 3 Days #6 capsule 11/21/19 [Rx] Past Medical History HEENT History: Reports: Other (See Below) Other HEENT History: wears glasses Cardiovascular History: Reports: None Respiratory History: Reports: None Gastrointestinal History: Reports: Other (See Below) Other Gastrointestinal History: occasional heartburn- takes OTC Prilosec Genitourinary History: Reports: Renal Calculus Other Genitourinary History: thinks he passed a kidney stone 1 month ago Musculoskeletal History: Reports: None Other Musculoskeletal History: hip and knee pain Neurological History: Reports: Seizure Other Neuro History: 20 years ago, had 5 seizures in 5 days (due to "exhaustion") Psychiatric History: Reports: None Endocrine/Metabolic History: Reports: Obesity/BMI 30+ Hematologic History: Reports: None Immunologic History: Reports: None Oncologic (Cancer) History: Reports: None Dermatologic History: Reports: None - Infectious Disease History Infectious Disease History: Reports: Chicken Pox, Measles, Mumps - Past Surgical History Head Surgeries/Procedures: Reports: None HEENT Surgical History: Reports: Other (See Below) Other HEENT Surgeries/Procedures: surgery on ear drum Cardiovascular Surgical History: Reports: None Respiratory Surgical History: Reports: None GI Surgical History: Reports: Cholecystectomy, Colonoscopy, EGD, ERCP Other GI Surgeries/Procedures: biopsy of pancreas- found scar tissue Neurological Surgical History: Reports: None Musculoskeletal Surgical History: Reports: None Oncologic Surgical History: Reports: None Social & Family History - Family History Family Medical History: Noncontributory Oncologic: Reports: Colon - Caffeine Use Caffeine Use: Reports: None - Recreational Drug Use Recreational Drug Use: No ED ROS GENERAL - Review of Systems Review Of Systems: Comprehensive ROS is negative, except as noted in HPI. ED EXAM, RENAL/ - Physical Exam Exam: See Below (See dictation) Course - Vital Signs Last Recorded V/S: Last Vital Signs Temp 96.7 F L 11/21/19 15:44 Pulse 91 11/21/19 15:44 Resp 20 11/21/19 15:44 BP 129/81 11/21/19 15:44 Pulse Ox 96 11/21/19 15:44 - Orders/Labs/Meds Labs: Laboratory Tests 11/21/19 11/21/19 11/21/19 Range/Units 15:42 16:07 16:07 WBC 12.38 H (4.0-11.0) K/uL RBC 4.87 (4.50-5.90) M/uL Hgb 14.5 (13.0-17.0) g/dL Hct 43.0 (38.0-50.0) % MCV 88.3 (80.0-98.0) fL MCH 29.8 (27.0-32.0) pg MCHC 33.7 (31.0-37.0) g/dL RDW Std Deviation 44.8 (28.0-62.0) fl RDW Coeff of Bryn 14 (11.0-15.0) % Plt Count 236 (150-400) K/uL MPV 9.40 (7.40-12.00) fL Neut % (Auto) 75.6 (48.0-80.0) % Lymph % (Auto) 12.3 L (16.0-40.0) % [place] % (Auto) 11.1 (0.0-15.0) % Eos % (Auto) 0.8 (0.0-7.0) % Baso % (Auto) 0.2 (0.0-1.5) % Neut # (Auto) 9.4 H (1.4-5.7) K/uL Lymph # (Auto) 1.5 (0.6-2.4) K/uL [place] # (Auto) 1.4 H (0.0-0.8) K/uL Eos # (Auto) 0.1 (0.0-0.7) K/uL Baso # (Auto) 0.0 (0.0-0.1) K/uL Nucleated RBC % 0.0 /100WBC Nucleated RBCs # 0 K/uL Sodium 137 (136-148) mmol/L Potassium 4.1 (3.5-5.1) mmol/L Chloride 100 (98-107) mmol/L Carbon Dioxide 27.8 (21.0-32.0) mmol/L BUN 16 (7.0-18.0) mg/dL Creatinine 1.4 H (0.8-1.3) mg/dL Est Cr Clr Drug Dosing 50.49 mL/min Estimated GFR (MDRD) 51.2 ml/min Glucose 126 H (74-106) mg/dL Calcium 9.2 (8.5-10.1) mg/dL Total Bilirubin 0.9 (0.2-1.0) mg/dL AST 14 L (15-37) IU/L ALT 30 (14-63) IU/L Alkaline Phosphatase 82 (46-116) U/L Total Protein 7.6 (6.4-8.2) g/dL Albumin 3.4 (3.4-5.0) g/dL Globulin 4.2 H (2.6-4.0) g/dL Albumin/Globulin Ratio 0.8 L (0.9-1.6) Lipase (73-393) U/L Urine Color YELLOW Urine Appearance HAZY Urine pH 5.5 (5.0-8.0) Ur Specific [place] >= 1.030 (1.001-1.035) Urine Protein 30 H (NEGATIVE) mg/dL Urine Glucose (UA) NEGATIVE (NEGATIVE) mg/dL Urine Ketones NEGATIVE (NEGATIVE) mg/dL Urine Occult Blood SMALL H (NEGATIVE) Urine Nitrite NEGATIVE (NEGATIVE) Urine Bilirubin NEGATIVE (NEGATIVE) Urine Urobilinogen 0.2 (<2.0) EU/dL Ur Leukocyte Esterase NEGATIVE (NEGATIVE) Urine RBC 0-3 (0-2/HPF) Urine WBC 0-3 (0-5/HPF) Ur Epithelial Cells RARE (NONE-FEW) Urine Bacteria FEW (NEGATIVE) 11/21/19 Range/Units 16:07 WBC (4.0-11.0) K/uL RBC (4.50-5.90) M/uL Hgb (13.0-17.0) g/dL Hct (38.0-50.0) % MCV (80.0-98.0) fL MCH (27.0-32.0) pg MCHC (31.0-37.0) g/dL RDW Std Deviation (28.0-62.0) fl RDW Coeff of Bryn (11.0-15.0) % Plt Count (150-400) K/uL MPV (7.40-12.00) fL Neut % (Auto) (48.0-80.0) % Lymph % (Auto) (16.0-40.0) % [place] % (Auto) (0.0-15.0) % Eos % (Auto) (0.0-7.0) % Baso % (Auto) (0.0-1.5) % Neut # (Auto) (1.4-5.7) K/uL Lymph # (Auto) (0.6-2.4) K/uL [place] # (Auto) (0.0-0.8) K/uL Eos # (Auto) (0.0-0.7) K/uL Baso # (Auto) (0.0-0.1) K/uL Nucleated RBC % /100WBC Nucleated RBCs # K/uL Sodium (136-148) mmol/L Potassium (3.5-5.1) mmol/L Chloride (98-107) mmol/L Carbon Dioxide (21.0-32.0) mmol/L BUN (7.0-18.0) mg/dL Creatinine (0.8-1.3) mg/dL Est Cr Clr Drug Dosing mL/min Estimated GFR (MDRD) ml/min Glucose (74-106) mg/dL Calcium (8.5-10.1) mg/dL Total Bilirubin (0.2-1.0) mg/dL AST (15-37) IU/L ALT (14-63) IU/L Alkaline Phosphatase (46-116) U/L Total Protein (6.4-8.2) g/dL Albumin (3.4-5.0) g/dL Globulin (2.6-4.0) g/dL Albumin/Globulin Ratio (0.9-1.6) Lipase 108 (73-393) U/L Urine Color Urine Appearance Urine pH (5.0-8.0) Ur Specific [place] (1.001-1.035) Urine Protein (NEGATIVE) mg/dL Urine Glucose (UA) (NEGATIVE) mg/dL Urine Ketones (NEGATIVE) mg/dL Urine Occult Blood (NEGATIVE) Urine Nitrite (NEGATIVE) Urine Bilirubin (NEGATIVE) Urine Urobilinogen (<2.0) EU/dL Ur Leukocyte Esterase (NEGATIVE) Urine RBC (0-2/HPF) Urine WBC (0-5/HPF) Ur Epithelial Cells (NONE-FEW) Urine Bacteria (NEGATIVE) Meds: Medications Discontinued Medications Generic Name Dose Route Start Last Admin Trade Name Freq PRN Reason Stop Dose Admin Nitrofurantoin Macrocrystals 100 mg 11/21/19 17:39 11/21/19 17:48 Macrobid PO 11/21/19 17:40 100 mg ONETIME ONE Administration Nitrofurantoin Macrocrystals 200 mg 11/21/19 17:40 11/21/19 17:48 Macrobid PO 11/21/19 17:41 200 mg ONETIME ONE Administration Departure - Departure Time of Disposition: 17:45 Disposition: Home, Self-Care 01 Clinical Impression: Dysuria, Kidney stone - Discharge Information Instructions: Kidney Stones, [id number], Dysuria Referrals: Americo Man MD [Primary Care Provider] - Forms: ED Department Discharge Additional Instructions: The following information is given to patients seen in the emergency department who are being discharged to home. This information is to outline your options for follow-up care. We provide all patients seen in our emergency department with a follow-up referral. The need for follow-up, as well as the timing and circumstances, are variable depending upon the specifics of your emergency department visit. If you don't have a primary care physician on staff, we will provide you with a referral. We always advise you to contact your personal physician following an emergency department visit to inform them of the circumstance of the visit and for follow-up with them and/or the need for any referrals to a consulting specialist. The emergency department will also refer you to a specialist when appropriate. This referral assures that you have the opportunity for follow-up care with a specialist. All of these measure are taken in an effort to provide you with optimal care, which includes your follow-up. Under all circumstances we always encourage you to contact your private physician who remains a resource for coordinating your care. When calling for follow-up care, please make the office aware that this follow-up is from your recent emergency room visit. If for any reason you are refused follow-up, please contact the [facility] Emergency Department at and asked to speak to the emergency department charge nurse. [facility] [address] [place] [address] [place] [address] Thank you for choosing the [facility] emergency department in [place] for your medical needs today. It was a pleasure caring for you. Today you were seen in the emergency department for dysuria and left side pain. 1. Today your physical exam was normal. Your labs and CT showed no significant concerning findings. Macrobid (antibiotic) has been prescribed for you to take twice daily x 5 days for your urinary symptoms. The flexeril is a muscle relaxant for your pain. 2. Tylenol and/or Ibuprofen as needed 3. Please keep your appointment with Dr Frederick and attend on . If your symptoms should worsen, new symptoms develop or any of the signs and symptoms we discussed should arise please return to the emergency room or call 911 (if needed). Sepsis Event Note (ED) - Evaluation Sepsis Screening Result: No Definite Risk - Focused Exam Vital Signs: Vital Signs Temp Pulse Resp BP Pulse Ox 11/21/19 15:44 96.7 F L 91 20 129/81 96
[2019-11-21 16:32] LABS: CARBON DIOXIDE,CO2 27.8 mmol/L (21.0-32.0); POTASSIUM,K 4.1 mmol/L (3.5-5.1)
--- NOTE | 2019-11-21 17:24 | CT ---
INDICATION: Left lower quadrant pain. COMPARISON: CT abdomen pelvis 08/17/2019 Findings: Heart size is normal. No pericardial effusion. The lung bases appear clear. Fatty liver. Spleen, adrenal glands are unremarkable cholecystectomy. Normal caliber abdominal aorta. Nonobstructing left renal calculus. No hydronephrosis. Possible punctate 1 mm punctate stone in the right bladder base series 201 image 131. There is a 4 mm right distal ureteral stone. There is no significant ureteral dilatation present. There is a 2 x 1.9 cm possible right bladder base. This is seen on series 2 on image 131. Urinary bladder decompressed. Diverticulosis normal appendix. Again seen is rounded density off the tail of the pancreas medial extension along the inferior and anterior aspect of the pancreas. This measures 6.5 x 5.5 centimeters not significantly changed when remeasured in similar locations. There is increased surrounding inflammatory change. There is also some peripancreatic inflammatory change extending along the left anterior perirenal space. Prostate gland unremarkable. No suspicious bony lesions. Impression : 1. Fairly stable size of 6.5 x 5.5 centimeter rounded collection off the pancreatic tail. No internal gas bubbles. Findings could represent pseudocyst. There is now mild peripancreatic inflammatory change an increased inflammatory change around to this collection. This may represent pancreatitis. Recommend correlation with laboratory exam. 2. Possible 2 x 1.9 centimeter right bladder base mass. Recommend cystoscopy. 3. 4 millimeter right distal ureteral stone without significant ureteral dilatation. Possible punctate 1 millimeter stone in the right bladder base. Please note that all CT scans at this facility use dose modulation, iterative reconstruction, and/or weight-based dosing when appropriate to reduce radiation dose to as low as reasonably achievable. Dictated by Shruthi Gomez MD @ Nov 21 2019 5:07PM Signed by Dr. Shruthi Gomez @ Nov 21 2019 5:23PM
[2019-11-21] MEDS ORDERED: Nitrofurantoin Monohydrate/Macrocrystalline 100 MG Cap PO ONE ×2 (17:39→17:40)
[2019-11-21 18:55] VITALS: BP 122/74; PULSE 87
== END 2019-11-21 18:15 | disposition home or self-care (01) ==
LOC: MW.ED 15:35
DX: N20.0 Calculus of kidney (principal); D72.829 Elevated white blood cell count, unspecified; E66.9 Obesity, unspecified; Z68.33 Body mass index [BMI] 33.0-33.9, adult; Z88.8 Allergy status to other drugs, medicaments and biological substances; Z90.49 Acquired absence of other specified parts of digestive tract
CPT/HCPCS: 36415; 74176; 80053; 81001; 83690; 85025; 99284; A9270; 99283

== ENCOUNTER 2019-11-25 07:53 | Day surgery (SDC) | payer OTHER ==
[~2019-11-25 07:53] MED LIST changes: +Acetaminophen 1,000 MG in Premix Bag 1 BAG IV PRN; +Sodium Chloride 0.9% 10 ML SDV IV PRN; +Sodium Chloride 0.9% 10 ML Syringe FLUSH PRN; +Sodium Chloride 0.9% 2.5 ML Syringe FLUSH PRN; +ceFAZolin 1 GM in Premix Bag 1 BAG IV ONE; +fentaNYL 100 MCG/2 ML SDV IVPUSH PRN
--- NOTE | 2019-11-25 08:51 | PCM.PREANE ---
Preanesthetic Assessment - Anesthesia/Transfusion/Family Hx Anesthesia History: Prior Anesthesia Without Reaction Family History of Anesthesia Reaction: No Transfusion History: No Prior Transfusion(s) Intubation History: Unknown - Review of Systems General: No Symptoms Pulmonary: No Symptoms Cardiovascular: No Symptoms Gastrointestinal: No Symptoms Neurological: No Symptoms Other: Reports: None - Physical Assessment Vital Signs: Last Vital Signs Temp 36.7 C 11/25/19 08:05 Pulse 83 11/25/19 08:05 Resp 16 11/25/19 08:05 BP 129/79 11/25/19 08:05 Pulse Ox 98 11/25/19 08:05 Height: 5 ft 7 in Weight: 96.162 kg ASA Class: 2 Mental Status: Alert & Oriented x3 Airway Class: Mallampati = 1 Dentition: Reports: Normal Dentition Thyro-Mental Finger Breadths: 3 Mouth Opening Finger Breadths: 3 ROM/Head Extension: Limited/Partial Lungs: Clear to Auscultation, Normal Respiratory Effort Cardiovascular: Regular Rate, Regular Rhythm - Allergies Allergies/Adverse Reactions: Allergies Allergy/AdvReac Type Severity Reaction Status Date / Time polyethylene glycol 3350 Allergy Nausea and Verified 11/19/19 14:20 [From Miralax] Vomiting - Blood Blood Available: No - Anesthesia Plan Pre-Op Medication Ordered: None - Acknowledgements Anesthesia Type Planned: General Anesthesia Pt an Appropriate Candidate for the Planned Anesthesia: Yes Alternatives and Risks of Anesthesia Discussed w Pt/Guardian: Yes Pt/Guardian Understands and Agrees with Anesthesia Plan: Yes PreAnesthesia Questionnaire HEENT History: Reports: Other (See Below) Other HEENT History: wears glasses, hearing loss-s/p left tympanoplasty Cardiovascular History: Reports: None Respiratory History: Reports: None Gastrointestinal History: Reports: Diverticulosis, GERD, Other (See Below) Other Gastrointestinal History: occasional heartburn- takes OTC Prilosec Genitourinary History: Reports: BPH, Renal Calculus Other Genitourinary History: bladder cancer, he wa in our ER on friday a kidney, he also thinks that he passed a stone 1 month ago Musculoskeletal History: Reports: None Other Musculoskeletal History: hip and knee pain Neurological History: Reports: Seizure Other Neuro History: 20 years ago, had 5 seizures in 5 days (due to "exhaustion") Psychiatric History: Reports: None Endocrine/Metabolic History: Reports: Obesity/BMI 30+ (BMI 33.2) Hematologic History: Reports: None Immunologic History: Reports: None Oncologic (Cancer) History: Reports: None Dermatologic History: Reports: None - Infectious Disease History Infectious Disease History: Reports: Chicken Pox, Measles, Mumps - Past Surgical History Head Surgeries/Procedures: Reports: None HEENT Surgical History: Reports: Other (See Below) Other HEENT Surgeries/Procedures: surgery on ear drum (left tympanoplasty) Cardiovascular Surgical History: Reports: None Respiratory Surgical History: Reports: None GI Surgical History: Reports: Cholecystectomy, Colonoscopy, EGD, ERCP Other GI Surgeries/Procedures: biopsy of pancreas- found scar tissue Neurological Surgical History: Reports: None Musculoskeletal Surgical History: Reports: None Oncologic Surgical History: Reports: None - SUBSTANCE USE Smoking Status *Q: Former Smoker Tobacco Use Within Last Twelve Months: No Recreational Drug Use History: No - HOME MEDS Home Medications: Home Meds Nitrofurantoin Monohyd/M-Cryst [Macrobid 100 mg Capsule] 100 mg PO BID 3 Days #6 capsule 11/21/19 [Rx] - CURRENT (IN HOUSE) MEDS Current Meds: Current Medications Fentanyl (Sublimaze) 50 mcg IVPUSH Q5M PRN PRN Reason: Pain Lactated Ringer's (Ringers, Lactated) 1,000 mls @ 100 mls/hr IV ASDIRECTED DEXTER Acetaminophen 1,000 mg/ Premix 100 mls @ 400 mls/hr IV ONETIME PRN PRN Reason: Pain Sodium Chloride (Normal Saline) 10 ml IV ASDIRECTED PRN PRN Reason: IV Use Sodium Chloride (Saline Flush) 10 ml FLUSH ASDIRECTED PRN PRN Reason: Keep Vein Open Sodium Chloride (Saline Flush) 2.5 ml FLUSH ASDIRECTED PRN PRN Reason: Keep Vein Open Discontinued Medications Cefazolin Sodium/Dextrose 1 gm (/ Premix) 50 mls @ 100 mls/hr IV ONCALL ONE Stop: 11/25/19 00:30
[2019-11-25] MEDS ORDERED: fentaNYL 100 MCG/2 ML SDV ONE ×2 (09:00→09:51)
[2019-11-25] MEDS ORDERED: Midazolam 1 MG/ML 2 ML SDV ONE (09:00)
[2019-11-25] MEDS ORDERED: Propofol 200 MG/20 ML SDV ONE ×2 (09:00→09:50)
[2019-11-25] MEDS ORDERED: Ketorolac 30 MG/ML SDV ONE (09:01)
[2019-11-25] MEDS ORDERED: Rocuronium Bromide 50 MG/5 ML Syringe ONE (09:01)
[2019-11-25] MEDS ORDERED: Ondansetron 4 MG/2 ML SDV ONE (09:01)
[2019-11-25] MEDS ORDERED: Lidocaine 2% 5 ML SDV ONE (09:01)
[2019-11-25] MEDS ORDERED: Glycopyrrolate 0.2 MG/ML SDV ONE (09:01)
[2019-11-25] MEDS ORDERED: Ciprofloxacin in D5W 200 ML ONE (09:29)
[2019-11-25] MEDS ORDERED: Cyclobenzaprine 10 MG Tab PO PRN (10:39)
--- NOTE | 2019-11-25 11:22 | PCM.POSTAN ---
POST ANESTHESIA ASSESSMENT - MENTAL STATUS Mental Status: Alert, Oriented - VITAL SIGNS Vital Signs: Last Vital Signs Temp 36.1 C 11/25/19 10:41 Pulse 85 11/25/19 11:16 Resp 16 11/25/19 11:16 BP 97/70 11/25/19 11:16 Pulse Ox 92 L 11/25/19 11:16 - RESPIRATORY Respiratory Status: Respiratory Rate WNL, Airway Patent, O2 Saturation Stable - CARDIOVASCULAR CV Status: Pulse Rate WNL, Blood Pressure Stable - GASTROINTESTINAL GI Status: No Symptoms - PAIN Pain Score: 0 - POST OP HYDRATION Hydration Status: Adequate & Stable - OBSERVATIONS Free Text/Narrative:: No anesthesia problems
--- NOTE | 2019-11-25 12:06 | PCM48HPAN ---
Post Anesthesia Note - EVALUATION WITHIN 48HRS OF ANESTHETIC Vital Signs in Normal Range: Yes Patient Participated in Evaluation: Yes Respiratory Function Stable: Yes Airway Patent: Yes Cardiovascular Function Stable: Yes Hydration Status Stable: Yes Pain Control Satisfactory: Yes Nausea and Vomiting Control Satisfactory: Yes Mental Status Recovered: Yes Vital Signs: Last Vital Signs Temp 36.1 C 11/25/19 10:41 Pulse 85 11/25/19 11:16 Resp 16 11/25/19 11:16 BP 97/70 11/25/19 11:16 Pulse Ox 92 L 11/25/19 11:16 - COMMENTS/OBSERVATIONS Free Text/Narrative:: No anesthesia problems
[2019-11-25] MEDS ORDERED: Iopamidol 408 MG/ML 20 ML SDV ONE (13:00)
[2019-11-25 13:37] VITALS: BP 124/73; PULSE 81
--- NOTE | 2019-11-25 13:44 | OR ---
SURGEON: Osvaldo Frederick M.D. DATE OF PROCEDURE: 11/25/2019 PREOPERATIVE DIAGNOSIS: Bladder tumor, medium size, right wall, plus a 4 mm right lower ureteral stone. POSTOPERATIVE DIAGNOSIS: Bladder tumor, medium size, right wall, plus a 4 mm right lower ureteral stone. OPERATION: Transurethral resection of bladder tumour and right ureteroscopy with stone removal. DESCRIPTION OF PROCEDURE: The patient was given general anesthesia. He was in the dorsal lithotomy position, prepped and draped in sterile drapes. Cystourethroscopy was done confirming the presence of a bladder tumor about 1.5 cm in greatest dimension. The resectoscope was then introduced in the bladder and the tumors were resected in its entirety. The base of the tumor was biopsied separately again using the resectoscope. The resection was definitely deep enough to include muscle. The edges were fulgurated to stop and/or prevent any bleeding. The resectoscope was then removed and a 26-Singaporean cystoscope was introduced in the bladder through which a guidewire was advanced to the right ureter all the way up into the renal pelvis. The lower ureter was dilated using the UroMax II balloon dilator to approximately 15-Singaporean. The UroMax was removed, the guidewire was still in place. The rigid ureteroscope was advanced in the right ureter. The stone was visualized, grasped, and removed. The bladder was emptied, and the patient was moved to recovery room in good condition. PLAN: He will go home on Cipro and Flagyl. He has been complaining of left lower quadrant pain. He is tender over the left lower colon. There is no clear evidence of diverticulitis on the CT scan. However, he apparently had run a fever for 2 days and still has some tenderness over the left lower quadrant. CT scan was negative. Otherwise, his UA was definitely not suggestive of UTI. He will be sent home on Cipro and Flagyl. I will see him again this coming Friday to see if that has resolved and make sure he is okay otherwise. I might have the bladder tumor pathology report by then. CATHY / YADIEL /[id number]
--- NOTE | 2019-11-25 16:15 | CR ---
Abdomen: Single fluoroscopic spot view of the right lower pelvis was obtained. Study shows ureteral scope in place with catheter extending up the area of the right ureter. Fluoroscopy time not given at time of dictation. Impression: 1. Procedural study. Diagnostic code #2 This report was dictated in MDT
== END 2019-11-25 12:18 | disposition home or self-care (01) ==
LOC: MW.SDS 07:53
PROVIDERS: ATTEND Urology
DX: C67.9 Malignant neoplasm of bladder, unspecified (principal); N20.1 Calculus of ureter; E66.9 Obesity, unspecified; N40.0 Benign prostatic hyperplasia without lower urinary tract symptoms; K21.9 Gastro-esophageal reflux disease without esophagitis; Z88.8 Allergy status to other drugs, medicaments and biological substances; Z68.33 Body mass index [BMI] 33.0-33.9, adult; Z87.442 Personal history of urinary calculi; Z87.891 Personal history of nicotine dependence
CPT/HCPCS: 52234; 52352; 76000; J1885; J2001; J2250; J2405; J2704; J3010; J3490; J7120; Q9966; 00912

== ENCOUNTER 2019-12-08 23:00 | Emergency (ER) | payer OTHER ==
[2019-12-08] MEDS ORDERED: Sodium Chloride 0.9% 1,000 ML IV ONE (23:29)
[2019-12-08] MEDS ORDERED: Sodium Chloride 0.9% 2.5 ML Syringe FLUSH PRN (23:29)
[2019-12-08] MEDS ORDERED: Ketorolac 15 MG/ML SDV IVPUSH ONE (23:29)
[2019-12-08] MEDS ORDERED: Sodium Chloride 0.9% 10 ML Syringe FLUSH PRN (23:29)
[2019-12-08] MEDS ORDERED: traMADol 50 MG Tab PO ONE (23:34)
[2019-12-09 00:28] LABS: BLOOD UREA NITROGEN,BUN 21 mg/dL (7.0-18.0); CARBON DIOXIDE,CO2 28.9 mmol/L (21.0-32.0); CHLORIDE,CL 100 mmol/L (98-107); GLUCOSE RANDOM 142 mg/dL (74-106); LIPASE 171 U/L (73-393); SODIUM,NA 137 mmol/L (136-148)
--- NOTE | 2019-12-09 00:48 | CT ---
INDICATION: Left sided abdominal pain, recent diagnosis bladder cancer TECHNIQUE: CT Abdomen and pelvis without i.v. contrast. Coronal and sagittal reformats were obtained. COMPARISON: 11/21/2019, MRI 08/31/2019 FINDINGS: Lower chest: Unremarkable. Liver: Unremarkable. Spleen: Enlarging soft tissue nodules present any gastrosplenic ligament on image 36 measuring 2.4 x 2 cm. Pancreas: The heterogeneous lesion along the pancreatic tail noted on prior examination measuring 5.8 x 5 cm now appears contiguous with the adjacent splenic flexure of the colon and has developed internal gas. There is a hyperdense exophytic nodule along the pancreatic head measuring 3 x 2 cm. Lobulated soft tissue mass along the anterior aspect of the pancreatic body and tail is not significantly changed. Gallbladder: Previous cholecystectomy noted without significant intra- or extrahepatic biliary ductal dilatation seen. Kidney: There is a 1 mm stone present in the upper pole of the left kidney. A less than 1 mm stone is seen in the lower pole and mid zone of the right kidney. There is a 1 mm stone present in the distal left ureter, just proximal to the UVJ noted without significant change. Adrenal: Unremarkable. Bowel: See above. The appendix is normal in appearance and size. Vascular: Unremarkable. Lymph: Unremarkable. Peritoneum: Unremarkable. No pneumoperitoneum is seen. No significant ascites is noted. Pelvis: The soft tissue nodule along the right posterior bladder seen on prior examination is no longer visualized. Soft tissue: Unremarkable. Bone: Unremarkable for age. IMPRESSIONS: 1. The heterogeneous lesion along the pancreatic tail noted on prior examination measuring 5.8 x 5 cm now appears contiguous with the adjacent splenic flexure of the colon and has developed internal gas. Findings may be due to erosion or invasion of this lesion into the adjacent colon with presumed superimposed infection. 2. There is a hyperdense exophytic nodule along the pancreatic head measuring 3 x 2 cm. Lobulated soft tissue mass along the anterior aspect of the pancreatic body and tail is not significantly changed. Evaluation with biopsy is recommended to exclude a pancreatic malignancy. 3. Enlarging soft tissue nodules present any gastrosplenic ligament on image 36 measuring 2.4 x 2 cm. This may represent adenopathy. 4. There is a 1 mm stone present in the distal left ureter, just proximal to the UVJ noted without significant change. Dictated by Charly Green MD @ 12/09/2019 12:37:40 AM Please note that all CT scans at this facility use dose modulation, iterative reconstruction, and/or weight-based dosing when appropriate to reduce radiation dose to as low as reasonably achievable. Dictated by: Charly Green MD @ 12/09/2019 00:47:14 (Electronically Signed)
--- NOTE | 2019-12-09 01:34 | EDM.PDOC ---
ED HPI GENERAL MEDICAL PROBLEM - General Chief Complaint: General Stated Complaint: STOMACH PAIN Time Seen by Provider: 12/08/19 23:24 - History of Present Illness INITIAL COMMENTS - FREE TEXT/NARRATIVE: HISTORY AND PHYSICAL: History of present illness: This is a 64-year-old gentleman who presents ER today complaining of pain to his mid abdomen and pain to his perineal region feel like his prostate is swollen. Patient complains of midepigastric and left upper quadrant abdominal discomfort. Patient reports that 2 weeks ago he was diagnosed with cancer of the bladder and had a biopsy done by Dr. Enciso and was told he had stage II bladder cancer. Patient reports that the entire tumor was removed at that time and he needs to go back for follow-up every 3 months. Patient denies any recent fevers, shakes, chills, nausea, vomiting, diarrhea. Patient reports normal bowel movement. Patient denies any dysuria, frequency, urgency. Patient reports he is status post cholecystectomy secondary to gallstone pancreatitis which was performed in [place]. Patient denies any hypertension, diabetes, liver, lung, kidney problems. Patient denies any coronary disease. Patient was staged to bladder cancer recently diagnosed by Dr. Enciso. Review of systems: As per history of present illness and below otherwise all systems reviewed and negative. Past medical history: As per history of present illness and as reviewed below otherwise noncontributory. Surgical history: As per history of present illness and as reviewed below otherwise noncontributory. Social history: No reported history of drug or alcohol abuse. Family history: As per history of present illness and as reviewed below otherwise noncontributory. Physical exam: Constitutional: Patient is oriented to person, place, and time. Appears well-developed and well-nourished. No distress. HEENT: Moist mucous membranes Head: Normocephalic and atraumatic Eyes: Right eye exhibits no discharge. Left eye exhibits no discharge. No scleral icterus Neck: Normal range of motion. No tracheal deviation present. Cardiovascular: Normal rate and regular rhythm. Pulmonary: Effort normal, no respiratory distress. Abd: Soft, nondistended, no rebound/guarding, no psoas or obturator signs, no tenderness at Mcberney's point, no Waite's sign. Pt does not present with an exam that would be consistent with an acute surgical abdomen at this time, nor mal active bowel sounds, mild tenderness palpation to the midepigastric and left upper quadrant. Musculoskeletal: Normal range of motion Neurologic: Alert and oriented to person, place and time. Skin: Junior, warm and dry. Psychiatric: Normal mood and affect. Behavior is normal. Judgment and thought content normal. Nursing note and vital signs have been reviewed Diagnostics: CT scan of the abdomen pelvis without IV contrast was obtained. CT scan reveals 1. The heterogenous lesion along the pancreatic tail which was noted on prior examination measuring 5.8 x 5 cm now appears to be contiguous with the adjacent splenic flexure of the colon and has developed internal gas. Findings may be due to erosion or invasion of this lesion into the adjacent colon with super imposed infection. 2. There is a hyperdense exophytic nodule along the pancreatic head measuring 3 x 2 cm. Lobulated soft tissue mass along the anterior aspect of the pancreatic body and tail is not significantly changed. Evaluation with biopsy is recommended to exclude a pancreatic malignancy. 3. There is a 1 mm stone present in the distal left ureter just proximal to the UVJ noted without significant change. Therapeutics: [] Assessment and plan: This is a 64-year-old gentleman who presents ER today complaining of abdominal bloatedness, difficulty moving bowels, lower abdominal discomfort that is been progressively worsening since he had his bladder biopsy performed [address] scan is concerning for a pancreatic tumor eroding into the splenic flexure of the colon. There is development of internal gas and findings consistent with erosion or invasion of this lesion into the adjacent colon with presumed superimposed infection. Case was discussed with our general surgeon Dr. Daugherty who feels that the patient will require a higher level of care given the complexity of this case. Dr. Daugherty has recommended that the patient be transferred to a University like setting to manage this patient appropriately. I have contacted [facility] and they are unable to accept patient in transfer at this time as they are above capacity. I have spoken to Dr. Daugherty who is recommended contacting [facility] to see if they would accept him in transfer. 1:15 AM: Case discussed with [facility]. Patient's records will be faxed for their evaluation and assistance. Definitive disposition and diagnosis as appropriate pending reevaluation and review of above. Groin Pain Score (Numeric/FACES): 4 - Related Data Allergies Allergy/AdvReac Type Severity Reaction Status Date / Time polyethylene glycol 3350 Allergy Nausea and Verified 12/08/19 23:13 [From Miralax] Vomiting Home Meds: Home Meds . [No Known Home Meds] 12/08/19 [History] Past Medical History HEENT History: Reports: Other (See Below) Other HEENT History: wears glasses, hearing loss-s/p left tympanoplasty Cardiovascular History: Reports: None Respiratory History: Reports: None Gastrointestinal History: Reports: Diverticulosis, GERD, Other (See Below) Other Gastrointestinal History: occasional heartburn- takes OTC Prilosec Genitourinary History: Reports: BPH, Renal Calculus Other Genitourinary History: bladder cancer, he wa in our ER on friday a kidney, he also thinks that he passed a stone 1 month ago Musculoskeletal History: Reports: None Other Musculoskeletal History: hip and knee pain Neurological History: Reports: Seizure Other Neuro History: 20 years ago, had 5 seizures in 5 days (due to "exhaustion") Psychiatric History: Reports: None Endocrine/Metabolic History: Reports: Obesity/BMI 30+ Hematologic History: Reports: None Immunologic History: Reports: None Oncologic (Cancer) History: Reports: None Dermatologic History: Reports: None - Infectious Disease History Infectious Disease History: Reports: Chicken Pox, Measles, Mumps - Past Surgical History Head Surgeries/Procedures: Reports: None HEENT Surgical History: Reports: Other (See Below) Other HEENT Surgeries/Procedures: surgery on ear drum (left tympanoplasty) Cardiovascular Surgical History: Reports: None Respiratory Surgical History: Reports: None GI Surgical History: Reports: Cholecystectomy, Colonoscopy, EGD, ERCP Other GI Surgeries/Procedures: biopsy of pancreas- found scar tissue Neurological Surgical History: Reports: None Musculoskeletal Surgical History: Reports: None Oncologic Surgical History: Reports: None Social & Family History - Family History Family Medical History: Noncontributory HEENT: Reports: None Cardiac: Reports: None GI: Reports: None Oncologic: Reports: Colon - Tobacco Use Smoking Status *Q: Never Smoker Second Hand Smoke Exposure: No - Caffeine Use Caffeine Use: Reports: None - Recreational Drug Use Recreational Drug Use: No ED ROS GENERAL - Review of Systems Review Of Systems: See Below ED EXAM, GENERAL - Physical Exam Exam: See Below Course - Vital Signs Last Recorded V/S: Last Vital Signs Temp 96.0 F L 12/08/19 23:05 Pulse 81 12/09/19 04:00 Resp 18 09/24/20 04:00 BP 134/96 H 12/09/19 04:00 Pulse Ox 97 12/09/19 04:00 - Orders/Labs/Meds Orders: Active Orders 24 hr Category Date Time Status CORONAVIRUS COVID-19 PCR PHL Stat Lab 12/09/19 02:00 Received Saline Lock Insert [OM.PC] Stat Oth 12/08/19 23:29 Ordered Labs: Laboratory Tests 12/08/19 12/08/19 12/08/19 Range/Units 23:43 23:43 23:55 WBC 15.11 H (4.0-11.0) K/uL RBC 4.94 (4.50-5.90) M/uL Hgb 14.2 (13.0-17.0) g/dL Hct 43.0 (38.0-50.0) % MCV 87.0 (80.0-98.0) fL MCH 28.7 (27.0-32.0) pg MCHC 33.0 (31.0-37.0) g/dL RDW Std Deviation 41.6 (28.0-62.0) fl RDW Coeff of Bryn 13 (11.0-15.0) % Plt Count 403 H (150-400) K/uL MPV 9.80 (7.40-12.00) fL Neut % (Auto) 79.4 (48.0-80.0) % Lymph % (Auto) 9.0 L (16.0-40.0) % Towns % (Auto) 10.6 (0.0-15.0) % Eos % (Auto) 0.7 (0.0-7.0) % Baso % (Auto) 0.3 (0.0-1.5) % Neut # (Auto) 12.0 H (1.4-5.7) K/uL Lymph # (Auto) 1.4 (0.6-2.4) K/uL Towns # (Auto) 1.6 H (0.0-0.8) K/uL Eos # (Auto) 0.1 (0.0-0.7) K/uL Baso # (Auto) 0.0 (0.0-0.1) K/uL Nucleated RBC % 0.0 /100WBC Nucleated RBCs # 0 K/uL Sodium 137 (136-148) mmol/L Potassium 4.0 (3.5-5.1) mmol/L Chloride 100 (98-107) mmol/L Carbon Dioxide 28.9 (21.0-32.0) mmol/L BUN 21 H (7.0-18.0) mg/dL Creatinine 1.2 (0.8-1.3) mg/dL Est Cr Clr Drug Dosing 58.91 mL/min Estimated GFR (MDRD) > 60.0 ml/min Glucose 142 H (74-106) mg/dL Calcium 8.8 (8.5-10.1) mg/dL Total Bilirubin 0.5 (0.2-1.0) mg/dL AST 15 (15-37) IU/L ALT 32 (14-63) IU/L Alkaline Phosphatase 99 (46-116) U/L Total Protein 7.5 (6.4-8.2) g/dL Albumin 3.3 L (3.4-5.0) g/dL Globulin 4.2 H (2.6-4.0) g/dL Albumin/Globulin Ratio 0.8 L (0.9-1.6) Lipase 171 (73-393) U/L Urine Color YELLOW Urine Appearance CLEAR Urine pH 6.0 (5.0-8.0) Ur Specific [place] 1.025 (1.001-1.035) Urine Protein NEGATIVE (NEGATIVE) mg/dL Urine Glucose (UA) NEGATIVE (NEGATIVE) mg/dL Urine Ketones NEGATIVE (NEGATIVE) mg/dL Urine Occult Blood LARGE H (NEGATIVE) Urine Nitrite NEGATIVE (NEGATIVE) Urine Bilirubin NEGATIVE (NEGATIVE) Urine Urobilinogen 0.2 (<2.0) EU/dL Ur Leukocyte Esterase NEGATIVE (NEGATIVE) Urine RBC 8-9 (0-2/HPF) Urine WBC 0-1 (0-5/HPF) Ur Epithelial Cells RARE (NONE-FEW) Urine Bacteria FEW (NEGATIVE) Urine Mucus LIGHT (NONE-MOD) SARS CoV-2 RNA Rapid DAWSON (NEGATIVE) 12/09/19 Range/Units 02:00 WBC (4.0-11.0) K/uL RBC (4.50-5.90) M/uL Hgb (13.0-17.0) g/dL Hct (38.0-50.0) % MCV (80.0-98.0) fL MCH (27.0-32.0) pg MCHC (31.0-37.0) g/dL RDW Std Deviation (28.0-62.0) fl RDW Coeff of Bryn (11.0-15.0) % Plt Count (150-400) K/uL MPV (7.40-12.00) fL Neut % (Auto) (48.0-80.0) % Lymph % (Auto) (16.0-40.0) % Towns % (Auto) (0.0-15.0) % Eos % (Auto) (0.0-7.0) % Baso % (Auto) (0.0-1.5) % Neut # (Auto) (1.4-5.7) K/uL Lymph # (Auto) (0.6-2.4) K/uL Towns # (Auto) (0.0-0.8) K/uL Eos # (Auto) (0.0-0.7) K/uL Baso # (Auto) (0.0-0.1) K/uL Nucleated RBC % /100WBC Nucleated RBCs # K/uL Sodium (136-148) mmol/L Potassium (3.5-5.1) mmol/L Chloride (98-107) mmol/L Carbon Dioxide (21.0-32.0) mmol/L BUN (7.0-18.0) mg/dL Creatinine (0.8-1.3) mg/dL Est Cr Clr Drug Dosing mL/min Estimated GFR (MDRD) ml/min Glucose (74-106) mg/dL Calcium (8.5-10.1) mg/dL Total Bilirubin (0.2-1.0) mg/dL AST (15-37) IU/L ALT (14-63) IU/L Alkaline Phosphatase (46-116) U/L Total Protein (6.4-8.2) g/dL Albumin (3.4-5.0) g/dL Globulin (2.6-4.0) g/dL Albumin/Globulin Ratio (0.9-1.6) Lipase (73-393) U/L Urine Color Urine Appearance Urine pH (5.0-8.0) Ur Specific [place] (1.001-1.035) Urine Protein (NEGATIVE) mg/dL Urine Glucose (UA) (NEGATIVE) mg/dL Urine Ketones (NEGATIVE) mg/dL Urine Occult Blood (NEGATIVE) Urine Nitrite (NEGATIVE) Urine Bilirubin (NEGATIVE) Urine Urobilinogen (<2.0) EU/dL Ur Leukocyte Esterase (NEGATIVE) Urine RBC (0-2/HPF) Urine WBC (0-5/HPF) Ur Epithelial Cells (NONE-FEW) Urine Bacteria (NEGATIVE) Urine Mucus (NONE-MOD) SARS CoV-2 RNA Rapid DAWSON NEGATIVE (NEGATIVE) Meds: Medications Discontinued Medications Generic Name Dose Route Start Last Admin Trade Name Freq PRN Reason Stop Dose Admin Hydromorphone HCl 1 mg 12/09/19 03:42 12/09/19 03:47 Dilaudid IVPUSH 12/09/19 03:43 1 mg ONETIME ONE Administration Sodium Chloride 1,000 mls @ 999 mls/hr 12/08/19 23:29 12/08/19 23:50 Normal Saline IV 12/09/19 00:29 999 mls/hr .Bolus ONE Administration Piperacillin Sod/Tazobactam 50 mls @ 100 mls/hr 12/09/19 01:36 12/09/19 02:05 Sod 3.375 gm/ Sodium Chloride IV 12/09/19 02:05 100 mls/hr ONETIME ONE Administration Sodium Chloride Confirm 12/09/19 01:52 12/09/19 02:20 Normal Saline (Advbag) Administered 12/09/19 01:53 Not Given Dose 250 mls @ as directed .ROUTE .STK-MED ONE Ketorolac Tromethamine 15 mg 12/08/19 23:29 12/08/19 23:50 Toradol IVPUSH 12/08/19 23:30 15 mg ONETIME ONE Administration Sodium Chloride 10 ml 12/08/19 23:29 Saline Flush FLUSH ASDIRECTED PRN Keep Vein Open Sodium Chloride 2.5 ml 12/08/19 23:29 Saline Flush FLUSH ASDIRECTED PRN Keep Vein Open Tramadol HCl 50 mg 12/08/19 23:34 12/09/19 02:17 Ultram PO 12/08/19 23:35 50 mg ONETIME ONE Administration Tramadol HCl Confirm 12/09/19 02:14 12/09/19 02:20 Ultram Administered 12/09/19 02:15 Not Given Dose 50 mg .ROUTE .STK-MED ONE Departure - Departure Time of Disposition: 05:35 Disposition: DC/Tfer to Acute Hospital 02 Condition: Fair Clinical Impression: Pancreatic mass, Diffuse infection of pancreas - Discharge Information Referrals: Americo Man MD [Primary Care Provider] - Forms: ED Department Discharge Sepsis Event Note (ED) - Evaluation Sepsis Screening Result: No Definite Risk - Focused Exam Vital Signs: Vital Signs Temp Pulse Resp BP Pulse Ox 12/09/19 04:00 81 18 134/96 H 97 12/09/19 02:30 84 16 126/86 97 12/08/19 23:05 96.0 F L 97 20 114/69 95 - My Orders Last 24 Hours: My Active Orders 12/08/19 23:29 Saline Lock Insert [OM.PC] Stat 12/09/19 02:00 CORONAVIRUS COVID-19 PCR PHL Stat - Assessment/Plan Last 24 Hours: My Active Orders 12/08/19 23:29 Saline Lock Insert [OM.PC] Stat 12/09/19 02:00 CORONAVIRUS COVID-19 PCR PHL Stat
[2019-12-09] MEDS ORDERED: Piperacillin/Tazobactam 3.375 GM in Sodium Chloride 0.9% 50 ML IV ONE (01:36)
[2019-12-09] MEDS ORDERED: Sodium Chloride 0.9% 250 ML ONE (01:52)
[2019-12-09] MEDS ORDERED: traMADol 50 MG Tab ONE (02:14)
[2019-12-09] MEDS ORDERED: HYDROmorphone 1 MG/ML Syringe IVPUSH ONE (03:42)
[2019-12-09 04:53] VITALS: BP 134/96; PULSE 81
== END 2019-12-09 04:15 ==
LOC: MW.ED 23:00
DX: K85.90 Acute pancreatitis without necrosis or infection, unspecified (principal); E66.9 Obesity, unspecified; Z90.49 Acquired absence of other specified parts of digestive tract; Z68.31 Body mass index [BMI] 31.0-31.9, adult; Z88.8 Allergy status to other drugs, medicaments and biological substances; Z20.828 Contact with and (suspected) exposure to other viral communicable diseases
CPT/HCPCS: 36415; 74176; 80053; 81001; 83690; 85025; 87635; 96361; 96365; 96375; 99285; A9270; J1170; J1885; J2543; J7030; J7050; 99284; U0002

== ENCOUNTER 2020-01-03 18:06 | Emergency (ER) | payer OTHER ==
--- NOTE | 2020-01-03 18:56 | EDM.PDOC ---
ED HPI GENERAL MEDICAL PROBLEM - General Chief Complaint: Abdominal Pain Stated Complaint: BLOOD IN STOOL Time Seen by Provider: 01/03/20 18:07 Source of Information: Reports: Patient History Limitations: Reports: No Limitations - History of Present Illness INITIAL COMMENTS - FREE TEXT/NARRATIVE: HISTORY AND PHYSICAL: History of present illness: Patient is a 64-year-old male who presents to the emergency room with concerns of red stools which he believes is blood. He has a past medical history of gallstone pancreatitis status post cholecystectomy (12/2018) and stage II bladder cancer status post endoscopic resection. 08/2019 he was found to have a multilobulated central necrotic lesion in the pancreatic tail. He underwent a lesion biopsy on 09/13/2019. This showed a fragmented fibrofatty tissue with chronic inflammation. There was no normal pancreatic duct or acini nor any evidence of malignancy. He also underwent FNA and cyst allergy on 11/09/2019. The specimen was inadequate due to sparse cellularity but was negative for malignancy. CT scan at [place] re-demonstrated the large necrotic pancreatic tail mass, with new erosion into the colon near the splenic flexure. Associated inflammation extended to the small bowel and stomach without definite invasion. Imaging favored perpancreatic cyst. Transgastric drainage of the cyst was avoided due to concerns for creating a gastrocolonic fistula. A colonic cystic fistula was inserted into the patient's rectum up into the pancreas, patient discharged to home with irrigation of the cavity with normal saline. He has been able to manage this by himself. He has been on a clear liquid diet with Boost nutrition and Beneprotein. Since being placed on the clear liquid diet he has been eating a lot of Jell-O over the past 2 weeks. He states his made 2 large bowls 1 of red Jell-O and 1 of orange. Today with his bowel movements he saw red/orange liquid stool and was fearful that he was having rectal bleeding. He has noted this color change in all 3 stools he has had today. He denies having any pain, nausea or symptomatology. He was concerned that the colonic cystic fistula tube that he has threaded from his colon into his pancreas, could be dislodged and bleeding. Review of systems: As per history of present illness and below otherwise all systems reviewed and negative. Past medical history: As per history of present illness and as reviewed below otherwise noncontributory. Surgical history: As per history of present illness and as reviewed below otherwise noncontributory. Social history: See social history for further information Family history: As per history of present illness and as reviewed below otherwise noncontributory. Physical exam: General: Well developed and well nourished. Alert and orientated x 3. Nontoxic in appearance and in no acute distress. Vital signs are stable and have been reviewed by me. Nursing notes were reviewed. HEENT: Atraumatic, normocephalic, pupils equal and reactive bilaterally, negative for conjunctival pallor or scleral icterus, mucous membranes moist, TMs normal bilaterally, throat clear, neck supple, nontender, trachea midline. No drooling or trismus noted. No meningeal signs. No hot potato voice noted. Lungs: Clear to auscultation, breath sounds equal bilaterally, chest nontender. Normal work of breathing, no accessory muscles used. Heart: S1S2, regular rate and rhythm without overt murmur Abdomen: Soft, nondistended, nontender. Negative for masses or hepatosplenomegaly. Negative for costovertebral tenderness. Pelvis: Stable nontender. Rectal: This was done with consent and a studio model at the bedside. Rectal tube is noted in the patient and secured. Hemoccult negative. No external or internal hemorrhoids are noted. Skin: Intact, warm, dry. No lesions or rashes noted. Hematologic: No petechiae or purpra. Mucosa appropriate color and normal nail bed color and refill. Extremities: Atraumatic, moves all extremities per self without difficulty or deficits, negative for cords or calf pain. Neurovascular unremarkable. Neuro: Awake, alert, oriented. Cranial nerves II through XII unremarkable. Cerebellum unremarkable. Motor and sensory unremarkable throughout. Exam nonfocal. Psychiatric: Mood and affect are appropriate. Normal thought process. Answering questions appropriately. Notes: CBC in normal range. I did call [facility] [phone] Zaidi, casing finisher and stuffer fellow that works with their group. She is agreeable to my plan of care and does not see any need for a CT scan at this time. The discoloration of stools is likely from the food dye in his Jell- O/liquids. I have spoken with the patient/caregiver and discussed today's findings, in addition to providing specific details for plan of care. Reassessment at the time of disposition demonstrates that the patient is in no acute distress. The patient has remained stable throughout the entire ED visit and is without objective evidence for acute process requiring urgent intervention or hospitalization. The patient is stable for discharge, counseling was provided and we discussed in great detail signs and symptoms that would prompt them to return to the Emergency Department. Medication, follow up and supportive care measures were reviewed and discussed. Voices understanding and is agreeable to plan of care. Denies any further questions or concerns at this time. Diagnostics: CBC, Hemoccult stool Therapeutics: None Prescription: None Impression: Encounter for medical screening exam Plan: 1. Today your stool was negative for blood. The color you are viewing in your stool is likley due to the food coloring in the liquids/jello you are consuming. Your lab work was normal today as well (not loosing concerning amount of blood/anemic). I did speak with Dr at [facility] about your case today. They are aware of your concerns and ER visit today. They are agreeable with plan of care done here today. 2. Continue with all your prescribed regiments as previously directed (clear liquid, Boost Breeze, tube flushing, etc...) until told otherwise by your primary care/casing finisher and stuffer provider. 3. We encourage you to follow up with your primary care provider and/or recommended specialist in the next few days for re-evaluation and further care/management. If your symptoms should worsen, new symptoms develop or any of the signs and symptoms we discussed should arise please return to the emergency room or call 911 (if needed). Definitive disposition and diagnosis as appropriate pending reevaluation and review of above. - Related Data Allergies Allergy/AdvReac Type Severity Reaction Status Date / Time polyethylene glycol 3350 Allergy Nausea and Verified 01/03/20 18:18 [From Miralax] Vomiting Home Meds: Home Meds . [No Known Home Meds] 12/08/19 [History] Past Medical History HEENT History: Reports: Other (See Below) Other HEENT History: wears glasses, hearing loss-s/p left tympanoplasty Cardiovascular History: Reports: None Respiratory History: Reports: None Gastrointestinal History: Reports: Diverticulosis, GERD, Other (See Below) Other Gastrointestinal History: occasional heartburn- takes OTC Prilosec Genitourinary History: Reports: BPH, Renal Calculus Other Genitourinary History: bladder cancer Musculoskeletal History: Reports: None Other Musculoskeletal History: hip and knee pain Neurological History: Reports: Seizure Other Neuro History: 20 years ago, had 5 seizures in 5 days (due to "exhaustion") Psychiatric History: Reports: None Endocrine/Metabolic History: Reports: Obesity/BMI 30+ Hematologic History: Reports: None Immunologic History: Reports: None Oncologic (Cancer) History: Reports: Bladder Dermatologic History: Reports: None - Infectious Disease History Infectious Disease History: Reports: Chicken Pox, Measles, Mumps - Past Surgical History Head Surgeries/Procedures: Reports: None HEENT Surgical History: Reports: Other (See Below) Other HEENT Surgeries/Procedures: surgery on ear drum (left tympanoplasty) Cardiovascular Surgical History: Reports: None Respiratory Surgical History: Reports: None GI Surgical History: Reports: Cholecystectomy, Colonoscopy, EGD, ERCP Other GI Surgeries/Procedures: biopsy of pancreas- found scar tissue. has abscess on pancreas- now has a drain Neurological Surgical History: Reports: None Musculoskeletal Surgical History: Reports: None Oncologic Surgical History: Reports: None Social & Family History - Family History Family Medical History: Noncontributory HEENT: Reports: None Cardiac: Reports: None GI: Reports: None Oncologic: Reports: Colon - Tobacco Use Tobacco Use Status *Q: Never Tobacco User - Caffeine Use Caffeine Use: Reports: None - Recreational Drug Use Recreational Drug Use: No ED ROS GENERAL - Review of Systems Review Of Systems: Comprehensive ROS is negative, except as noted in HPI. ED EXAM, GI/ABD - Physical Exam Exam: See Below (See dictation) Course - Vital Signs Last Recorded V/S: Last Vital Signs Temp 95.9 F L 01/03/20 18:15 Pulse 66 01/03/20 18:15 Resp 16 01/03/20 18:15 BP 146/84 H 01/03/20 18:15 Pulse Ox 98 01/03/20 18:15 - Orders/Labs/Meds Labs: Laboratory Tests 01/03/20 Range/Units 18:58 WBC 8.22 (4.0-11.0) K/uL RBC 4.52 (4.50-5.90) M/uL Hgb 13.0 (13.0-17.0) g/dL Hct 38.3 (38.0-50.0) % MCV 84.7 (80.0-98.0) fL MCH 28.8 (27.0-32.0) pg MCHC 33.9 (31.0-37.0) g/dL RDW Std Deviation 44.6 (28.0-62.0) fl RDW Coeff of Bryn 14 (11.0-15.0) % Plt Count 285 (150-400) K/uL MPV 10.20 (7.40-12.00) fL Neut % (Auto) 61.8 (48.0-80.0) % Lymph % (Auto) 23.2 (16.0-40.0) % Mccormick % (Auto) 11.6 (0.0-15.0) % Eos % (Auto) 2.9 (0.0-7.0) % Baso % (Auto) 0.5 (0.0-1.5) % Neut # (Auto) 5.1 (1.4-5.7) K/uL Lymph # (Auto) 1.9 (0.6-2.4) K/uL Mccormick # (Auto) 1.0 H (0.0-0.8) K/uL Eos # (Auto) 0.2 (0.0-0.7) K/uL Baso # (Auto) 0.0 (0.0-0.1) K/uL Nucleated RBC % 0.0 /100WBC Nucleated RBCs # 0 K/uL Departure - Departure Time of Disposition: 19:39 Disposition: Home, Self-Care 01 Clinical Impression: Encounter for medical screening examination - Discharge Information Referrals: Americo Man MD [Primary Care Provider] - Forms: ED Department Discharge Additional Instructions: The following information is given to patients seen in the emergency department who are being discharged to home. This information is to outline your options for follow-up care. We provide all patients seen in our emergency department with a follow-up referral. The need for follow-up, as well as the timing and circumstances, are variable depending upon the specifics of your emergency department visit. If you don't have a primary care physician on staff, we will provide you with a referral. We always advise you to contact your personal physician following an emergency department visit to inform them of the circumstance of the visit and for follow-up with them and/or the need for any referrals to a consulting specialist. The emergency department will also refer you to a specialist when appropriate. This referral assures that you have the opportunity for follow-up care with a specialist. All of these measure are taken in an effort to provide you with optimal care, which includes your follow-up. Under all circumstances we always encourage you to contact your private physician who remains a resource for coordinating your care. When calling for follow-up care, please make the office aware that this follow-up is from your recent emergency room visit. If for any reason you are refused follow-up, please contact the [facility] Emergency Department at and asked to speak to the emergency department charge nurse. [facility] [address] [place] [address] [facility] [address] [place] [id number] Thank you for choosing the [facility] emergency department in [place] for your medical needs today. It was a pleasure caring for you. Today you were seen in the emergency department for encounter for medical screening exam rule out rectal bleeding. 1. Today your stool was negative for blood. The color you are viewing in your stool is likely due to the food coloring in the liquids/jello you are consuming. Your lab work was normal today as well (not loosing concerning amount of blood/anemic). I did speak with Dr at [facility] about your case today. They are aware of your concerns and ER visit today. They are agreeable with plan of care done here today. 2. Continue with all your prescribed regiments as previously directed (clear liquid, Boost Breeze, tube flushing, etc...) until told otherwise by your primary care/casing finisher and stuffer provider. 3. We encourage you to follow up with your primary care provider and/or recommended specialist in the next few days for re-evaluation and further care/management. If your symptoms should worsen, new symptoms develop or any of the signs and symptoms we discussed should arise please return to the emergency room or call 911 (if needed). Sepsis Event Note (ED) - Evaluation Sepsis Screening Result: No Definite Risk - Focused Exam Vital Signs: Vital Signs Temp Pulse Resp BP Pulse Ox 01/03/20 18:15 95.9 F L 66 16 146/84 H 98
[2020-01-03 19:56] VITALS: BP 132/83; PULSE 58
== END 2020-01-03 19:54 | disposition home or self-care (01) ==
LOC: MW.ED 18:06
DX: Z13.9 Encounter for screening, unspecified (principal); E66.9 Obesity, unspecified; Z68.31 Body mass index [BMI] 31.0-31.9, adult; Z88.8 Allergy status to other drugs, medicaments and biological substances; Z90.49 Acquired absence of other specified parts of digestive tract
CPT/HCPCS: 36415; 85025; 99283

== ENCOUNTER 2020-03-28 06:35 | Day surgery (SDC) | payer OTHER ==
[2020-03-28] MEDS ORDERED: Propofol 200 MG/20 ML SDV ONE (06:49)
[2020-03-28] MEDS ORDERED: Midazolam 1 MG/ML 2 ML SDV ONE (06:49)
[2020-03-28] MEDS ORDERED: Ondansetron 4 MG/2 ML SDV ONE (06:51)
[2020-03-28] MEDS ORDERED: Lidocaine 2% 5 ML SDV ONE (06:51)
--- NOTE | 2020-03-28 07:20 | PCM.PREANE ---
Preanesthetic Assessment - Anesthesia/Transfusion/Family Hx Anesthesia History: Prior Anesthesia Without Reaction Family History of Anesthesia Reaction: No Transfusion History: No Prior Transfusion(s) Intubation History: Unknown - Review of Systems General: No Symptoms Pulmonary: No Symptoms Cardiovascular: No Symptoms Gastrointestinal: No Symptoms Neurological: No Symptoms Other: Reports: None - Physical Assessment Height: 5 ft 7 in Weight: 91.172 kg ASA Class: 2 Mental Status: Alert & Oriented x3 Airway Class: Mallampati = 2 Dentition: Reports: Normal Dentition Thyro-Mental Finger Breadths: 3 Mouth Opening Finger Breadths: 3 ROM/Head Extension: Full Lungs: Clear to Auscultation, Normal Respiratory Effort Cardiovascular: Regular Rate, Regular Rhythm - Allergies Allergies/Adverse Reactions: Allergies Allergy/AdvReac Type Severity Reaction Status Date / Time polyethylene glycol 3350 Allergy Nausea and Verified 01/03/20 18:18 [From Miralax] Vomiting - Blood Blood Available: No - Anesthesia Plan Pre-Op Medication Ordered: None - Acknowledgements Anesthesia Type Planned: General Anesthesia Pt an Appropriate Candidate for the Planned Anesthesia: Yes Alternatives and Risks of Anesthesia Discussed w Pt/Guardian: Yes Pt/Guardian Understands and Agrees with Anesthesia Plan: Yes PreAnesthesia Questionnaire HEENT History: Reports: Impaired Vision, Other (See Below) Other HEENT History: wears glasses, hearing loss-s/p left tympanoplasty Cardiovascular History: Reports: None Respiratory History: Reports: None Gastrointestinal History: Reports: Diverticulosis, GERD, Other (See Below) Other Gastrointestinal History: occasional heartburn- takes OTC Prilosec Genitourinary History: Reports: BPH, Renal Calculus Other Genitourinary History: bladder cancer 3 months ago- grade 2 noninvasive Musculoskeletal History: Reports: None Neurological History: Reports: Seizure Other Neuro History: 22 years ago, had 5 seizures in 5 days (due to "exhaustion") Psychiatric History: Reports: None Endocrine/Metabolic History: Reports: Obesity/BMI 30+ (BMI 31.5) Hematologic History: Reports: None Immunologic History: Reports: None Oncologic (Cancer) History: Reports: Bladder Dermatologic History: Reports: None - Infectious Disease History Infectious Disease History: Reports: Chicken Pox, Measles, Mumps Other Infectious Disease History: when a child - Past Surgical History Head Surgeries/Procedures: Reports: None HEENT Surgical History: Reports: Other (See Below) Other HEENT Surgeries/Procedures: surgery on ear drum (left tympanoplasty) Cardiovascular Surgical History: Reports: None Respiratory Surgical History: Reports: None GI Surgical History: Reports: Cholecystectomy, Colonoscopy, EGD, ERCP, Hernia Repair/Other Other GI Surgeries/Procedures: biopsy of pancreas- found scar tissue Other Female Surgeries/Procedures: states has had numerous cystoscopys Male Surgical History: Reports: Kidney Stone Extraction, Renal Calculus, TURBT-Transurethral Resection of Bladder Tumor Endocrine Surgical History: Reports: None Neurological Surgical History: Reports: None Musculoskeletal Surgical History: Reports: None Oncologic Surgical History: Reports: None Dermatological Surgical History: Reports: None - SUBSTANCE USE Tobacco Use Status *Q: Former Tobacco User (quit 6 years ago) - HOME MEDS Home Medications: Home Meds . [No Known Home Meds] 12/08/19 [History] - CURRENT (IN HOUSE) MEDS Current Meds: Current Medications Discontinued Medications Acetaminophen (Ofirmev) Confirm Administered Dose 100 mls @ as directed .ROUTE .STK-MED ONE Stop: 03/28/20 07:06 Lidocaine (Xylocaine-Mpf 2%) Confirm Administered Dose 5 ml .ROUTE .STK-MED ONE Stop: 03/28/20 06:52 Midazolam HCl (Versed 1 Mg/Ml) Confirm Administered Dose 2 mg .ROUTE .STK-MED ONE Stop: 03/28/20 06:50 Ondansetron HCl (Zofran) Confirm Administered Dose 4 mg .ROUTE .STK-MED ONE Stop: 03/28/20 06:52 Propofol (Diprivan 20 Ml) Confirm Administered Dose 200 mg .ROUTE .STK-MED ONE Stop: 03/28/20 06:50
[2020-03-28] MEDS ORDERED: Lactated Ringers 1,000 ML IV SCH (07:30)
[2020-03-28] MEDS ORDERED: fentaNYL 100 MCG/2 ML SDV ONE (07:40)
--- NOTE | 2020-03-28 09:15 | PCM.POSTAN ---
POST ANESTHESIA ASSESSMENT - MENTAL STATUS Mental Status: Alert, Oriented - VITAL SIGNS Vital Signs: Last Vital Signs Temp 36.8 C 03/28/20 08:38 Pulse 71 03/28/20 09:08 Resp 15 03/28/20 09:08 BP 118/75 03/28/20 09:08 Pulse Ox 92 L 03/28/20 09:08 - RESPIRATORY Respiratory Status: Respiratory Rate WNL, Airway Patent, O2 Saturation Stable - CARDIOVASCULAR CV Status: Pulse Rate WNL, Blood Pressure Stable - GASTROINTESTINAL GI Status: No Symptoms - PAIN Pain Score: 0 - POST OP HYDRATION Hydration Status: Adequate & Stable - OBSERVATIONS Free Text/Narrative:: The patient has no complaints, and is in no acute distress. There were no apparent anesthetic complications at this time. Discharge to phase 2.
--- NOTE | 2020-03-28 09:57 | PCM48HPAN ---
Post Anesthesia Note - EVALUATION WITHIN 48HRS OF ANESTHETIC Vital Signs in Normal Range: Yes Patient Participated in Evaluation: Yes Respiratory Function Stable: Yes Airway Patent: Yes Cardiovascular Function Stable: Yes Hydration Status Stable: Yes Pain Control Satisfactory: Yes Nausea and Vomiting Control Satisfactory: Yes Mental Status Recovered: Yes Vital Signs: Last Vital Signs Temp 36.8 C 03/28/20 08:38 Pulse 71 03/28/20 09:08 Resp 15 03/28/20 09:08 BP 118/75 03/28/20 09:08 Pulse Ox 92 L 03/28/20 09:08 - COMMENTS/OBSERVATIONS Free Text/Narrative:: No anesthesia problems
[2020-03-28 12:30] VITALS: BP 133/73; PULSE 68
--- NOTE | 2020-03-28 13:17 | OR ---
SURGEON: Osvaldo Frederick M.D. DATE OF PROCEDURE: 03/28/2020 PREOPERATIVE DIAGNOSIS: History of transitional cell carcinoma of the bladder. POSTOPERATIVE DIAGNOSIS: History of transitional cell carcinoma of the bladder. OPERATION: Cystoscopy, fulguration of papillary thinly spread early tumors on the right lateral wall. The area that was affected was approximately 2 x 3 cm. DESCRIPTION OF PROCEDURE: The patient was given general anesthesia. He was in the dorsal lithotomy position, prepped and draped in sterile drapes. The 22-Nauruan cystoscope was introduced in the bladder without difficulty. Inspection of the bladder showed early papillary changes in the area described above. These were scraped off using the Bugbee electrode and the bases were fulgurated. With that done, the procedure was terminated. The bladder was emptied, and the patient was moved to recovery room in good condition. PLAN: He will need another cystoscopy in about 4 months. CATHY / YADIEL /[id number]
== END 2020-03-28 10:00 | disposition home or self-care (01) ==
LOC: MW.SDS 06:35
PROVIDERS: ATTEND Urology
DX: C67.2 Malignant neoplasm of lateral wall of bladder (principal); N40.0 Benign prostatic hyperplasia without lower urinary tract symptoms; N52.9 Male erectile dysfunction, unspecified; K21.9 Gastro-esophageal reflux disease without esophagitis; E66.9 Obesity, unspecified; Z68.31 Body mass index [BMI] 31.0-31.9, adult; Z90.49 Acquired absence of other specified parts of digestive tract; Z87.891 Personal history of nicotine dependence; Z88.8 Allergy status to other drugs, medicaments and biological substances; Z98.890 Other specified postprocedural states; Z79.899 Other long term (current) drug therapy
CPT/HCPCS: 52235; J2001; J2250; J2405; J2704; J3010; J7120; 00912; J0131

== ENCOUNTER 2020-10-25 13:30 | Emergency (ER) | payer OTHER ==
[2020-10-25] MEDS ORDERED: Sodium Chloride 0.9% 1,000 ML IV ONE (14:27)
[2020-10-25 14:55] LABS: BLOOD UREA NITROGEN,BUN 20 mg/dL (7.0-18.0); CARBON DIOXIDE,CO2 28.1 mmol/L (21.0-32.0); CHLORIDE,CL 98 mmol/L (98-107); GLUCOSE RANDOM 99 mg/dL (74-106); LIPASE 94 U/L (73-393); POTASSIUM,K 4.1 mmol/L (3.5-5.1); SODIUM,NA 135 mmol/L (136-148)
--- NOTE | 2020-10-25 15:38 | CR ---
INDICATION: Weakness TECHNIQUE: Portable upright AP view of the chest COMPARISON: One-view chest radiograph 08/17/2019 FINDINGS: The lungs are clear. There is no sizable pleural effusion or pneumothorax. The cardiomediastinal silhouette is normal. The visualized osseous structures are unremarkable. IMPRESSION: No acute intrathoracic process. Dictated by Miguelina Hernandez MD @ 10/25/2020 3:36:[address] Miguelina Hernandez @ Oct 25 2020 3:36PM
[2020-10-25] MEDS ORDERED: Iopamidol 755 MG/ML 500 ML Multipack Bottle IVPUSH STA (16:57)
--- NOTE | 2020-10-25 17:31 | PCM.EKG ---
#1 Interpretation EKG Interpretation Comments: EKG: As interpreted by ER physician: Rae: Nonspecific ST-T wave abnormalities Normal axis No evidence of ST elevation [place] Normal sinus rhythm heart rate of 76 EKG date October 26, 2019 1:54 PM
--- NOTE | 2020-10-25 18:13 | CT ---
Indication: Recent cystoscopy, weakness Technique: Contrast enhanced axial CT imaging through the abdomen and pelvis. 100 mL Isovue 370 contrast agent was administered intravenously. Sagittal and coronal reconstructions are provided. Comparison: CT abdomen pelvis without contrast 12/08/2019 Findings: The liver and spleen are unremarkable. Cholecystectomy clips on present. The adrenal glands are normal. There is a 2.9 x 2.7 x 1.9 cm cystic lesion arising from the anterior margin of the uncinate process of the pancreas. Remainder of the pancreas is unremarkable. A small nonobstructive stone is noted in the posterior upper pole of the left kidney. The kidneys are otherwise unremarkable. Naranjo catheter is noted in the urinary bladder. Mild bladder wall thickening is suggested. The portal vein is patent. There is normal caliber of the abdominal aorta. No lymphadenopathy is demonstrated in the abdomen or pelvis. The stomach and duodenum are unremarkable. There is no small bowel wall thickening or abnormal distention. The appendix is noninflamed. There is no colonic wall thickening or mesenteric edema. The osseous structures are unremarkable. The included lung bases are clear. Impression: 1. Mild apparent urinary bladder wall thickening. Correlate with urinalysis to exclude cystitis. 2. A 2.9 cm cystic lesion arising from the anterior margin of the uncinate process of the pancreas. Follow-up contrast enhanced MRI is recommended non emergently for characterization. 3. Small nonobstructive left renal stone. Please note that all CT scans at this facility use dose modulation, iterative reconstruction, and/or weight-based dosing when appropriate to reduce radiation dose to as low as reasonably achievable. Dictated by Miguelina Hernandez MD @ 10/25/2020 6:13:[address] Miguelina Hernandez @ Oct 25 2020 6:13PM
--- NOTE | 2020-10-25 18:18 | EDM.PDOC ---
ED HPI GENERAL MEDICAL PROBLEM - General Chief Complaint: Genitourinary Problem Stated Complaint: WEAKNESS Time Seen by Provider: 10/25/20 13:37 Source of Information: Reports: Patient History Limitations: Reports: No Limitations - History of Present Illness INITIAL COMMENTS - FREE TEXT/NARRATIVE: HISTORY AND PHYSICAL: History of present illness: Patient is a 65 year old male who presents to the ED today with weakness x 2.5 hours. Patient states he did have a recent cystoscopy on Friday10/20/20 to scrape the lining of his bladder by urology Dr. Bee in [facility]. Patient states he has an indwelling catheter that is to be removed in a few more days. Patient states he has had cystoscopy several other times in the past and gets this routinely done to "wipe away" the bladder cancer that he states is superficial and nonmetastasized. Patient states 2.5 hours prior to arrival to the ED he felt weak but has a difficult time elaborating much more than this. He states he feels as if his arms are tired / weak but denies any change in strength or sensation. Patient denies any other associated symptoms. Patient denies fever, chills, chest pain, shortness of breath, or cough. Denies headache, neck stiff ness, change in vision, syncope, or near syncope. Denies nausea, vomiting, abdominal pain, diarrhea, constipation, or dysuria. Has not noted any blood in urine or stool. Patient has been eating and drinking appropriately. Review of systems: As per history of present illness and below otherwise all systems reviewed and negative. Past medical history: As per history of present illness and as reviewed below otherwise noncontributory. Surgical history: As per history of present illness and as reviewed below otherwise noncontributory. Social history: See social history for further information Family history: As per history of present illness and as reviewed below otherwise noncontributory. Physical exam: General: Patient is alert, oriented, and in no acute distress. Patient sitting comfortably on exam table. Vitals stable and reviewed by me. HEENT: Atraumatic, normocephalic, pupils equal and reactive bilaterally, negative for conjunctival pallor or scleral icterus, mucous membranes moist, TMs normal bilaterally, throat clear, neck supple, nontender, trachea midline. No drooling or trismus noted. No meningeal signs. No hot potato voice noted. Lungs: Clear to auscultation, breath sounds equal bilaterally, chest nontender. Heart: S1S2, regular rate and rhythm without overt murmur Abdomen: Soft, nondistended, nontender. Negative for masses or hepatosplenomegaly. Negative for costovertebral tenderness. Pelvis: Stable nontender. Genitourinary: Deferred. Indwelling oseguera in place and draining properly into bag without gross blood / clotting. Rectal: Deferred. Skin: Intact, warm, dry. No lesions or rashes noted. Extremities: Atraumatic, negative for cords or calf pain. Neurovascular unremarkable. Neuro: Awake, alert, oriented. Cranial nerves II through XII unremarkable. Cerebellum unremarkable. Motor and sensory unremarkable throughout. Exam nonfocal. Notes: Patient is a 65 year old male who presents to the ED today secondary to weakness x 2.5 hours with recent h/o of cystoscopy on Friday10/20/20 for tumor removal of bladder with indwelling catheter in place secondary to procedure. Upon arrival to the ED, patient is vitally stable and well appearing on exam with unremarkable physical exam findings. Indwelling oseguera in place and draining properly into bag without clots/gross blood. Patient has a difficult time elaborating "weakness" but states he feels like he does not have the energy to lift his arm although he is able to lift his arms with 5/5 strength. Due to patients recent post-procedure status, as well as nonspecific complaint, will perform broad evaluation today of his complaint, obtain urine sample which will be off of already in place catheter, and due to recent cystoscopy will obtain abd/pelvic CT w cont to assess for possible post op complication. See Dr. Mcbride dictation for specific EKG interpretation. However, NSR without stemi CBC mild derangements unremarkable. CMP shows mild hyponatremia 135, BUN mild elevation 20, otherwise CMP unremarkable. Trop negative. Lipase WNL UA does show 15-18 RBC (expected post op) with 0-2WBC. Patient does have 1+ bacteria, 30 protein, positive nitrite. Discussed UA with Dr. Mcbride and agreeable that no sign of infection. Will culture urine. CXR shows no acute intrathoracic process. Abd/Pelvic ct w cont shows mild apparent bladder wall thickening. A 2.9cm cystic lesion from the anterior margin of the uncinate process of the pancreas. Non obstructive left renal stone All incidental findings of evaluation today discussed with patient and importance for follow up with a primary care provider Upon reevaluation of patient, he states his weakness has completely resolved and states no other symptoms developed and feels well. Patient remains vitally stable and comfortable throughout stay in ED. Strict return precautions thoroughly discussed with patient. Discussed the importance cor follow up with a PCP and urology. Voices understanding and is agreeable to plan of care. Denies any further questions or concerns at this time. Diagnostics: EKG, CBC, CMP, UA, CXR, Trop, Lipase, Abd/Pelvic ct w cont Therapeutics: NS Prescription: None Impression: Weakness, unspecified Plan: 1. Follow-up with your urologist and your primary care provider as discussed. Return to the ED as needed and as discussed. Definitive disposition and diagnosis as appropriate pending reevaluation and review of above. - Related Data Allergies Allergy/AdvReac Type Severity Reaction Status Date / Time polyethylene glycol 3350 Allergy Nausea and Verified 10/25/20 13:54 [From Miralax] Vomiting Home Meds: Home Meds . [No Known Home Meds] 12/08/19 [History] Past Medical History HEENT History: Reports: Impaired Vision, Other (See Below) Other HEENT History: wears glasses, hearing loss-s/p left tympanoplasty Cardiovascular History: Reports: None Respiratory History: Reports: None Gastrointestinal History: Reports: Diverticulosis, GERD, Other (See Below) Other Gastrointestinal History: occasional heartburn- takes OTC Prilosec Genitourinary History: Reports: BPH, Renal Calculus Other Genitourinary History: bladder cancer 3 months ago- grade 2 noninvasive Musculoskeletal History: Reports: None Neurological History: Reports: Seizure Other Neuro History: 22 years ago, had 5 seizures in 5 days (due to "exhaustion") Psychiatric History: Reports: None Endocrine/Metabolic History: Reports: Obesity/BMI 30+ Hematologic History: Reports: None Immunologic History: Reports: None Oncologic (Cancer) History: Reports: Bladder Dermatologic History: Reports: None - Infectious Disease History Infectious Disease History: Reports: Chicken Pox, Measles, Mumps Other Infectious Disease History: when a child - Past Surgical History Head Surgeries/Procedures: Reports: None HEENT Surgical History: Reports: Other (See Below) Other HEENT Surgeries/Procedures: surgery on ear drum (left tympanoplasty) Cardiovascular Surgical History: Reports: None Respiratory Surgical History: Reports: None GI Surgical History: Reports: Cholecystectomy, Colonoscopy, EGD, ERCP, Hernia Repair/Other Other GI Surgeries/Procedures: biopsy of pancreas- found scar tissue Male Surgical History: Reports: Kidney Stone Extraction, Renal Calculus, TURBT-Transurethral Resection of Bladder Tumor Endocrine Surgical History: Reports: None Neurological Surgical History: Reports: None Musculoskeletal Surgical History: Reports: None Oncologic Surgical History: Reports: None Dermatological Surgical History: Reports: None Social & Family History - Family History Family Medical History: No Pertinent Family History HEENT: Reports: None Cardiac: Reports: None GI: Reports: None Oncologic: Reports: Colon - Tobacco Use Tobacco Use Status *Q: Never Tobacco User Second Hand Smoke Exposure: No - Caffeine Use Caffeine Use: Reports: None - Recreational Drug Use Recreational Drug Use: No ED ROS GENERAL - Review of Systems Review Of Systems: Comprehensive ROS is negative, except as noted in HPI. ED EXAM, GENERAL - Physical Exam Exam: See Below (see dictation) Course - Vital Signs Last Recorded V/S: Last Vital Signs Temp 98 F 10/25/20 15:20 Pulse 72 10/25/20 18:31 Resp 17 10/25/20 18:31 BP 133/84 10/25/20 18:31 Pulse Ox 98 10/25/20 18:31 - Orders/Labs/Meds Orders: Active Orders 24 hr Category Date Time Status CULTURE URINE [MREF] Stat Lab 10/25/20 15:35 Received Labs: Laboratory Tests 10/25/20 10/25/20 10/25/20 Range/Units 14:16 14:16 15:35 WBC 9.85 (4.0-11.0) K/uL RBC 5.34 (4.50-5.90) M/uL Hgb 16.0 (13.0-17.0) g/dL Hct 45.8 (38.0-50.0) % MCV 85.8 (80.0-98.0) fL MCH 30.0 (27.0-32.0) pg MCHC 34.9 (31.0-37.0) g/dL RDW Std Deviation 42.6 (28.0-62.0) fl RDW Coeff of Bryn 14 (11.0-15.0) % Plt Count 266 (150-400) K/uL MPV 9.70 (7.40-12.00) fL Neut % (Auto) 70.4 (48.0-80.0) % Lymph % (Auto) 16.3 (16.0-40.0) % [place]ill % (Auto) 11.3 (0.0-15.0) % Eos % (Auto) 1.6 (0.0-7.0) % Baso % (Auto) 0.4 (0.0-1.5) % Neut # (Auto) 6.9 H (1.4-5.7) K/uL Lymph # (Auto) 1.6 (0.6-2.4) K/uL [place]ill # (Auto) 1.1 H (0.0-0.8) K/uL Eos # (Auto) 0.2 (0.0-0.7) K/uL Baso # (Auto) 0.0 (0.0-0.1) K/uL Nucleated RBC % 0.0 /100WBC Nucleated RBCs # 0 K/uL Sodium 135 L (136-148) mmol/L Potassium 4.1 (3.5-5.1) mmol/L Chloride 98 (98-107) mmol/L Carbon Dioxide 28.1 (21.0-32.0) mmol/L BUN 20 H (7.0-18.0) mg/dL Creatinine 1.2 (0.8-1.3) mg/dL Est Cr Clr Drug Dosing 58.14 mL/min Estimated GFR (MDRD) > 60.0 ml/min Glucose 99 (74-106) mg/dL Calcium 8.5 (8.5-10.1) mg/dL Total Bilirubin 1.0 (0.2-1.0) mg/dL AST 35 (15-37) IU/L ALT 60 (14-63) IU/L Alkaline Phosphatase 104 (46-116) U/L Troponin I < 0.050 (0.000-0.056) ng/mL Total Protein 7.8 (6.4-8.2) g/dL Albumin 4.1 (3.4-5.0) g/dL Globulin 3.7 (2.6-4.0) g/dL Albumin/Globulin Ratio 1.1 (0.9-1.6) Lipase 94 (73-393) U/L Urine Color YELLOW Urine Appearance SLT CLOUDY Urine pH 6.0 (5.0-8.0) Ur Specific [place] >= 1.030 (1.001-1.035) Urine Protein 30 H (NEGATIVE) mg/dL Urine Glucose (UA) NEGATIVE (NEGATIVE) mg/dL Urine Ketones NEGATIVE (NEGATIVE) mg/dL Urine Occult Blood LARGE H (NEGATIVE) Urine Nitrite POSITIVE H (NEGATIVE) Urine Bilirubin NEGATIVE (NEGATIVE) Urine Urobilinogen 0.2 (<2.0) EU/dL Ur Leukocyte Esterase NEGATIVE (NEGATIVE) Urine RBC 15-18 (0-2/HPF) Urine WBC 0-2 (0-5/HPF) Ur Epithelial Cells RARE (NONE-FEW) Amorphous Sediment LIGHT (NEGATIVE) Urine Bacteria 1+ H (NEGATIVE) Urine Mucus LIGHT (NONE-MOD) Meds: Medications Discontinued Medications Generic Name Dose Route Start Last Admin Trade Name Freq PRN Reason Stop Dose Admin Sodium Chloride 1,000 mls @ 999 mls/hr 10/25/20 14:27 10/25/20 15:17 Normal Saline IV 10/25/20 15:27 999 mls/hr BOLUS ONE Administration Iopamidol 100 ml 10/25/20 16:57 10/25/20 16:58 Iopamidol 755 Mg/Ml 500 Ml Multipack Bottle IVPUSH 10/25/20 16:58 100 ml ONETIME STA Administration Departure - Departure Time of Disposition: 18:17 Disposition: Home, Self-Care 01 Clinical Impression: Weakness - Discharge Information Instructions: Weakness, [id number] Referrals: Americo Man MD [Primary Care Provider] - Forms: ED Department Discharge Additional Instructions: The following information is given to patients seen in the emergency department who are being discharged to home. This information is to outline your options for follow-up care. We provide all patients seen in our emergency department with a follow-up referral. The need for follow-up, as well as the timing and circumstances, are variable depending upon the specifics of your emergency department visit. If you don't have a primary care physician on staff, we will provide you with a referral. We always advise you to contact your personal physician following an emergency department visit to inform them of the circumstance of the visit and for follow-up with them and/or the need for any referrals to a consulting specialist. The emergency department will also refer you to a specialist when appropriate. This referral assures that you have the opportunity for follow-up care with a specialist. All of these measure are taken in an effort to provide you with optimal care, which includes your follow-up. Under all circumstances we always encourage you to contact your private physician who remains a resource for coordinating your care. When calling for follow-up care, please make the office aware that this follow-up is from your recent emergency room visit. If for any reason you are refused follow-up, please contact the [facility] at and asked to speak to the emergency department charge nurse. [facility] [address] [place] [address] [facility] [address] [place] [id number] Dali Bee DO, FACOS, Urology [address] [address], 5th floor 1. Follow-up with your urologist and your primary care provider as discussed. Return to the ED as needed and as discussed. Sepsis Event Note (ED) - Focused Exam Vital Signs: Vital Signs Temp Pulse Resp BP Pulse Ox 10/25/20 18:31 72 17 133/84 98 10/25/20 15:20 98 F 73 16 118/81 94 L 10/25/20 14:56 74 133/92 H 96 10/25/20 13:51 98.4 F 74 18 129/65 95 - My Orders Last 24 Hours: My Active Orders 10/25/20 15:35 CULTURE URINE [MREF] Stat - Assessment/Plan Last 24 Hours: My Active Orders 10/25/20 15:35 CULTURE URINE [MREF] Stat
[2020-10-25 18:32] VITALS: BP 133/84; PULSE 72
== END 2020-10-25 18:32 | disposition home or self-care (01) ==
LOC: MW.ED 13:30
DX: R53.1 Weakness (principal); E66.9 Obesity, unspecified; Z88.8 Allergy status to other drugs, medicaments and biological substances; Z68.34 Body mass index [BMI] 34.0-34.9, adult
CPT/HCPCS: 36415; 71045; 74177; 80053; 81001; 83690; 84484; 85025; 87086; 93005; 99285; J7030; Q9967

== ENCOUNTER 2020-11-10 13:29 | Inpatient (IN) | payer OTHER ==
[2020-11-10] MEDS ORDERED: Ondansetron 4 MG/2 ML SDV IVPUSH ONE (14:43)
[2020-11-10] MEDS ORDERED: Ketorolac 30 MG/ML SDV IVPUSH ONE (14:43)
[2020-11-10] MEDS ORDERED: Sodium Chloride 0.9% 1,000 ML IV ONE ×2 (14:43→18:35)
--- NOTE | 2020-11-10 14:59 | EDM.PDOC ---
ED HPI GENERAL MEDICAL PROBLEM - General Chief Complaint: Abdominal Pain Stated Complaint: ABDOMINAL PAIN Time Seen by Provider: 11/10/20 13:39 Source of Information: Reports: Patient History Limitations: Reports: No Limitations - History of Present Illness INITIAL COMMENTS - FREE TEXT/NARRATIVE: HISTORY AND PHYSICAL: History of present illness: Patient is a 65-year-old male who presents emergency room today with concern of left flank pain, chills that started about 10 AM. Patient states that he did recently have a urinary catheter which he had removed and states that he felt fine until today. Patient states that he was just sitting at work when he began feeling of symptoms and states his most prominent symptom is his left flank pain. Patient states that he does have a history of bladder tumors which she frequently has to get removed (removed 9 days ago) and states this is why he had the catheter following the procedure. Patient states that he does feel nauseous and had one episode of nonbilious nonbloody vomiting just prior to arrival to the emergency room. Patient states that this time, he feels tired and rundown. Patient denies fever, chest pain, shortness of breath, or cough. Denies headache, neck stiff ness, change in vision, syncope, or near syncope. Denies abdominal pain, diarrhea, constipation, or dysuria. Has not noted any blood in urine or stool. Patient has been eating and drinking appropriately. Review of systems: As per history of present illness and below otherwise all systems reviewed and negative. Past medical history: As per history of present illness and as reviewed below otherwise noncontributory. Surgical history: As per history of present illness and as reviewed below otherwise noncontributory. Social history: See social history for further information Family history: As per history of present illness and as reviewed below otherwise noncontributory. Physical exam: General: Patient is alert, oriented, and in no acute distress. Patient laying comfortably on exam table. Febrile 101.9 otherwise vitally stable and reviewed by me. HEENT: Atraumatic, normocephalic, pupils equal and reactive bilaterally, negative for conjunctival pallor or scleral icterus, mucous membranes moist, TMs normal bilaterally, throat clear, neck supple, nontender, trachea midline. No drooling or trismus noted. No meningeal signs. No hot potato voice noted. Lungs: Clear to auscultation, breath sounds equal bilaterally, chest nontender. Heart: S1S2, regular rate and rhythm without overt murmur Abdomen: Soft, nondistended, nontender. Negative for masses or hepatosplenomegaly. Positive for costovertebral tenderness of the left. Pelvis: Stable nontender. Genitourinary: Deferred. Rectal: Deferred. Skin: Intact, warm, dry. No lesions or rashes noted. Extremities: Atraumatic, negative for cords or calf pain. Neurovascular unremarkable. Neuro: Awake, alert, oriented. Cranial nerves II through XII unremarkable. Cerebellum unremarkable. Motor and sensory unremarkable throughout. Exam nonfocal. Notes: Patient is a 65-year-old male who presents emergency room today with concern of left flank pain starting this morning. Upon arrival to the ED, patient is febrile 101.9 with positive CVA tenderness of the left, otherwise vitally stable and nontoxic on exam. Will obtain lab work with final pelvic CT scan rule out ureterolithiasis. CBC shows a mild leukocytosis of 11.15, otherwise mild derangements of CBC are unremarkable. CMP shows mild hyponatremia at 134, mild elevation of creatinine at 1.4, glucose mildly elevated 108, isolated total bilirubin elevation at 1.4, otherwise mild derangements of CMP unremarkable. Lipase normal. Lactate within normal limits. Urinalysis does show 4+ bacteria with 30-40 white blood cells, 15-20 red blood cells positive leukocyte Estrace positive nitrate concerning for urinary tract infection. Given patient's clinical fever and CVA tenderness, likely acute pyelonephritis. 2 blood cultures obtained, and 1 g IV Rocephin given. Chest x-ray shows no acute cardiopulmonary process. Abdominal pelvic CT without contrast shows no acute abnormalities of the abdomen or pelvis. No hydronephrosis. No uroliths. Upon reevaluation of patient, he remains vitally stable and has improvement of his symptoms with therapeutics in the emergency room today. I did call and speak to the hospitalist on-call, Dr. Jordan, and thoroughly discussed patient's case. Will admit to observation to Dr. Jordan. Voices understanding and is agreeable to plan of care. Denies any further questions or concerns at this time. Diagnostics: CBC, CMP, UA, CXR, COVID/Flu, CXR, Abd/Pelvic ct w/o cont Therapeutics: NS, Zofran, Toradol, Rocephin Impression: Acute pyelonephritis Plan: Admit to observation to Dr. Jordan Definitive disposition and diagnosis as appropriate pending reevaluation and review of above. Abdomen Pain Score (Numeric/FACES): 7 - Related Data Allergies Allergy/AdvReac Type Severity Reaction Status Date / Time polyethylene glycol 3350 Allergy Nausea and Verified 11/10/20 14:42 [From Miralax] Vomiting Home Meds: Home Meds . [No Known Home Meds] 12/08/19 [History] Past Medical History - Past Health History Medical/Surgical History: Denies Medical/Surgical History HEENT History: Reports: Impaired Vision, Other (See Below) Other HEENT History: wears glasses, hearing loss-s/p left tympanoplasty Cardiovascular History: Reports: None Respiratory History: Reports: None Gastrointestinal History: Reports: Diverticulosis, GERD, Other (See Below) Other Gastrointestinal History: occasional heartburn- takes OTC Prilosec Genitourinary History: Reports: BPH, Renal Calculus Other Genitourinary History: bladder cancer 3 months ago- grade 2 noninvasive Musculoskeletal History: Reports: None Neurological History: Reports: Seizure Other Neuro History: 22 years ago, had 5 seizures in 5 days (due to "exhaustion") Psychiatric History: Reports: None Endocrine/Metabolic History: Reports: Obesity/BMI 30+ Hematologic History: Reports: None Immunologic History: Reports: None Oncologic (Cancer) History: Reports: Bladder Dermatologic History: Reports: None - Infectious Disease History Infectious Disease History: Reports: Chicken Pox, Measles, Mumps Other Infectious Disease History: when a child - Past Surgical History Head Surgeries/Procedures: Reports: None HEENT Surgical History: Reports: Other (See Below) Other HEENT Surgeries/Procedures: surgery on ear drum (left tympanoplasty) Cardiovascular Surgical History: Reports: None Respiratory Surgical History: Reports: None GI Surgical History: Reports: Cholecystectomy, Colonoscopy, EGD, ERCP, Hernia Repair/Other Other GI Surgeries/Procedures: biopsy of pancreas- found scar tissue Male Surgical History: Reports: Kidney Stone Extraction, Renal Calculus, TURBT-Transurethral Resection of Bladder Tumor Endocrine Surgical History: Reports: None Neurological Surgical History: Reports: None Musculoskeletal Surgical History: Reports: None Oncologic Surgical History: Reports: None Dermatological Surgical History: Reports: None Social & Family History - Family History Family Medical History: No Pertinent Family History HEENT: Reports: None Cardiac: Reports: None GI: Reports: None Oncologic: Reports: Colon - Caffeine Use Caffeine Use: Reports: None - Recreational Drug Use Recreational Drug Use: No ED ROS GENERAL - Review of Systems Review Of Systems: Comprehensive ROS is negative, except as noted in HPI. ED EXAM, GENERAL - Physical Exam Exam: See Below (see dictation) Course - Vital Signs Last Recorded V/S: Last Vital Signs Temp 100.1 F 11/10/20 18:14 Pulse 85 11/10/20 18:14 Resp 20 11/10/20 14:39 BP 106/59 L 11/10/20 18:14 Pulse Ox 95 11/10/20 18:14 - Orders/Labs/Meds Orders: Active Orders 24 hr Category Date Time Status CULTURE BLOOD [BC] Stat Lab 11/10/20 16:23 Received CULTURE BLOOD [BC] Stat Lab 11/10/20 16:30 Received CULTURE URINE [MREF] Stat Lab 11/10/20 14:55 Received Blood Culture x2 Reflex Set [OM.PC] Stat Oth 11/10/20 16:12 Ordered Isolation [COMM] Routine Oth 11/10/20 14:44 Active Labs: Laboratory Tests 11/10/20 11/10/20 11/10/20 Range/Units 14:35 14:35 14:55 WBC 11.15 H (4.0-11.0) K/uL RBC 4.95 (4.50-5.90) M/uL Hgb 14.6 (13.0-17.0) g/dL Hct 42.2 (38.0-50.0) % MCV 85.3 (80.0-98.0) fL MCH 29.5 (27.0-32.0) pg MCHC 34.6 (31.0-37.0) g/dL RDW Std Deviation 41.5 (28.0-62.0) fl RDW Coeff of Bryn 13 (11.0-15.0) % Plt Count 247 (150-400) K/uL MPV 9.80 (7.40-12.00) fL Neut % (Auto) 80.4 H (48.0-80.0) % Lymph % (Auto) 7.6 L (16.0-40.0) % [place] % (Auto) 11.8 (0.0-15.0) % Eos % (Auto) 0.1 (0.0-7.0) % Baso % (Auto) 0.1 (0.0-1.5) % Neut # (Auto) 9.0 H (1.4-5.7) K/uL Lymph # (Auto) 0.9 (0.6-2.4) K/uL [place] # (Auto) 1.3 H (0.0-0.8) K/uL Eos # (Auto) 0.0 (0.0-0.7) K/uL Baso # (Auto) 0.0 (0.0-0.1) K/uL Nucleated RBC % 0.0 /100WBC Nucleated RBCs # 0 K/uL Sodium 134 L (136-148) mmol/L Potassium 3.9 (3.5-5.1) mmol/L Chloride 99 (98-107) mmol/L Carbon Dioxide 27.0 (21.0-32.0) mmol/L BUN 16 (7.0-18.0) mg/dL Creatinine 1.4 H (0.8-1.3) mg/dL Est Cr Clr Drug Dosing 46.37 mL/min Estimated GFR (MDRD) 51.0 ml/min Glucose 108 H (74-106) mg/dL Lactic Acid (0.4-2.0) mmol/L Calcium 8.3 L (8.5-10.1) mg/dL Total Bilirubin 1.4 H (0.2-1.0) mg/dL AST 13 L (15-37) IU/L ALT 34 (14-63) IU/L Alkaline Phosphatase 107 (46-116) U/L Total Protein 7.4 (6.4-8.2) g/dL Albumin 3.7 (3.4-5.0) g/dL Globulin 3.7 (2.6-4.0) g/dL Albumin/Globulin Ratio 1.0 (0.9-1.6) Lipase 82 (73-393) U/L Urine Color YELLOW Urine Appearance CLOUDY Urine pH 6.0 (5.0-8.0) Ur Specific [place] 1.025 (1.001-1.035) Urine Protein 100 H (NEGATIVE) mg/dL Urine Glucose (UA) NEGATIVE (NEGATIVE) mg/dL Urine Ketones NEGATIVE (NEGATIVE) mg/dL Urine Occult Blood LARGE H (NEGATIVE) Urine Nitrite POSITIVE H (NEGATIVE) Urine Bilirubin NEGATIVE (NEGATIVE) Urine Urobilinogen 0.2 (<2.0) EU/dL Ur Leukocyte Esterase MODERATE H (NEGATIVE) Urine RBC 15-20 (0-2/HPF) Urine WBC 30-40 (0-5/HPF) Ur Epithelial Cells FEW (NONE-FEW) Urine Bacteria 4+ H (NEGATIVE) Urine Mucus LIGHT (NONE-MOD) SARS-CoV-2 RNA (DAWSON) (NEGATIVE) 11/10/20 11/10/20 Range/Units 15:25 16:30 WBC (4.0-11.0) K/uL RBC (4.50-5.90) M/uL Hgb (13.0-17.0) g/dL Hct (38.0-50.0) % MCV (80.0-98.0) fL MCH (27.0-32.0) pg MCHC (31.0-37.0) g/dL RDW Std Deviation (28.0-62.0) fl RDW Coeff of Bryn (11.0-15.0) % Plt Count (150-400) K/uL MPV (7.40-12.00) fL Neut % (Auto) (48.0-80.0) % Lymph % (Auto) (16.0-40.0) % [place] % (Auto) (0.0-15.0) % Eos % (Auto) (0.0-7.0) % Baso % (Auto) (0.0-1.5) % Neut # (Auto) (1.4-5.7) K/uL Lymph # (Auto) (0.6-2.4) K/uL [place] # (Auto) (0.0-0.8) K/uL Eos # (Auto) (0.0-0.7) K/uL Baso # (Auto) (0.0-0.1) K/uL Nucleated RBC % /100WBC Nucleated RBCs # K/uL Sodium (136-148) mmol/L Potassium (3.5-5.1) mmol/L Chloride (98-107) mmol/L Carbon Dioxide (21.0-32.0) mmol/L BUN (7.0-18.0) mg/dL Creatinine (0.8-1.3) mg/dL Est Cr Clr Drug Dosing mL/min Estimated GFR (MDRD) ml/min Glucose (74-106) mg/dL Lactic Acid 0.6 (0.4-2.0) mmol/L Calcium (8.5-10.1) mg/dL Total Bilirubin (0.2-1.0) mg/dL AST (15-37) IU/L ALT (14-63) IU/L Alkaline Phosphatase (46-116) U/L Total Protein (6.4-8.2) g/dL Albumin (3.4-5.0) g/dL Globulin (2.6-4.0) g/dL Albumin/Globulin Ratio (0.9-1.6) Lipase (73-393) U/L Urine Color Urine Appearance Urine pH (5.0-8.0) Ur Specific [place] (1.001-1.035) Urine Protein (NEGATIVE) mg/dL Urine Glucose (UA) (NEGATIVE) mg/dL Urine Ketones (NEGATIVE) mg/dL Urine Occult Blood (NEGATIVE) Urine Nitrite (NEGATIVE) Urine Bilirubin (NEGATIVE) Urine Urobilinogen (<2.0) EU/dL Ur Leukocyte Esterase (NEGATIVE) Urine RBC (0-2/HPF) Urine WBC (0-5/HPF) Ur Epithelial Cells (NONE-FEW) Urine Bacteria (NEGATIVE) Urine Mucus (NONE-MOD) SARS-CoV-2 RNA (DAWSON) NEGATIVE (NEGATIVE) Meds: Medications Discontinued Medications Generic Name Dose Route Start Last Admin Trade Name Freq PRN Reason Stop Dose Admin Sodium Chloride 1,000 mls @ 999 mls/hr 11/10/20 14:43 11/10/20 14:50 Normal Saline IV 11/10/20 15:43 999 mls/hr BOLUS ONE Administration Ceftriaxone Sodium/Dextrose 1 50 mls @ 100 mls/hr 11/10/20 15:58 11/10/20 16:41 gm/ Premix IV 11/10/20 16:27 100 mls/hr ONETIME ONE Administration Sodium Chloride 1,000 mls @ 999 mls/hr 11/10/20 18:35 11/10/20 18:39 Normal Saline IV 11/10/20 19:35 999 mls/hr STAT ONE Administration Ketorolac Tromethamine 30 mg 11/10/20 14:43 11/10/20 14:50 Ketorolac 30 Mg/Ml Sdv IVPUSH 11/10/20 14:44 30 mg ONETIME ONE Administration Ondansetron HCl 4 mg 11/10/20 14:43 11/10/20 14:50 Ondansetron 4 Mg/2 Ml Sdv IVPUSH 11/10/20 14:44 4 mg ONETIME ONE Administration Departure - Departure Time of Disposition: 18:37 Disposition: Refer to Observation Clinical Impression: Acute pyelonephritis - Discharge Information Sepsis Event Note (ED) - Evaluation Sepsis Screening Result: No Definite Risk - Focused Exam Vital Signs: Vital Signs Temp Pulse Resp BP Pulse Ox 11/10/20 18:14 100.1 F 85 106/59 L 95 11/10/20 17:00 90 120/82 98 11/10/20 16:00 92 115/70 98 11/10/20 15:00 89 120/60 98 11/10/20 14:39 101.9 F H 98 20 124/79 98 - My Orders Last 24 Hours: My Active Orders 11/10/20 14:44 Isolation [COMM] Routine 11/10/20 14:55 CULTURE URINE [MREF] Stat 11/10/20 16:12 Blood Culture x2 Reflex Set [OM.PC] Stat 11/10/20 16:23 CULTURE BLOOD [BC] Stat 11/10/20 16:30 CULTURE BLOOD [BC] Stat - Assessment/Plan Last 24 Hours: My Active Orders 11/10/20 14:44 Isolation [COMM] Routine 11/10/20 14:55 CULTURE URINE [MREF] Stat 11/10/20 16:12 Blood Culture x2 Reflex Set [OM.PC] Stat 11/10/20 16:23 CULTURE BLOOD [BC] Stat 11/10/20 16:30 CULTURE BLOOD [BC] Stat
[2020-11-10 15:23] LABS: POTASSIUM,K 3.9 mmol/L (3.5-5.1)
--- NOTE | 2020-11-10 15:39 | CR ---
Indication: Chest pain, shortness of breath Technique: Chest 1 view Comparison: October 25, 2020 Findings/Impression: Cardiovascular and mediastinum: Heart size and vasculature are normal in caliber and appearance. Mediastinum is within normal limits. Lungs and pleural space: Lungs are clear. No sign of infiltrate or mass. No sign of pleural effusion. No pneumothorax. Bones and soft tissues: No significant findings. Dictated by Teri Benitez MD @ 11/10/2020 3:38:[address] Teri Benitez @ Nov 10 2020 3:38PM
[2020-11-10] MEDS ORDERED: cefTRIAXone 1 GM in Premix Bag 1 BAG IV ONE (15:58)
--- NOTE | 2020-11-10 18:21 | CT ---
INDICATION: Left flank pain. Urinary tract infection. COMPARISON: CT scan of the abdomen and pelvis dated 25 October 2020. TECHNIQUE: Noncontrast CT scan of the abdomen and pelvis. FINDINGS: The lung bases are unremarkable. Diffuse fatty infiltration of the liver. No focal abnormalities identified in the visualized portions of the liver, spleen, pancreas, adrenal glands, and kidneys. No hydronephrosis. No uroliths. The GI tract is incompletely distended but shows no gross abnormalities. Normal appendix. No retroperitoneal, pelvic sidewall, or mesenteric adenopathy. Atherosclerotic vascular calcifications. IMPRESSION: 1. No acute abnormalities of the abdomen or pelvis identified. No hydronephrosis. No uroliths. Please note that all CT scans at this facility use dose modulation, iterative reconstruction, and/or weight-based dosing when appropriate to reduce radiation dose to as low as reasonably achievable. Dictated by Adrian Gomez MD @ 11/10/2020 6:19:[address] Adrian Gomez @ Nov 10 2020 6:19PM
[2020-11-10] MEDS: Acetaminophen 325 MG Tab PO PRN (21:37)
[2020-11-10] MEDS: oxyCODONE 5 MG Tab PO PRN (21:37)
[2020-11-10] MEDS: Sodium Chloride 0.9% 1,000 ML IV SCH (21:38)
--- NOTE | 2020-11-10 23:36 | PCM.HP.2 ---
H&P History of Present Illness - General Date of Service: 11/10/20 Admit Problem/Dx: Admission Diagnosis/Problem Admission Diagnosis/Problem Pyelonephritis - History of Present Illness Initial Comments - Free Text/Narative: 65 yo male who reports a history of benign tumor which requring debulking every three months. During his last procedure he had some bleeding from his prostate and they left the oseguera catheter in place. The catheter was removed last week. Patient did not some hemature a few days ago which he contributes to passing a stone. He presents to the ER today with complaints of fever and left flank pain. Abdomen Pain Score (Numeric/FACES): 7 Right Flank Pain Score (Numeric/FACES): 6 - Related Data Allergies/Adverse Reactions: Allergies Allergy/AdvReac Type Severity Reaction Status Date / Time polyethylene glycol 3350 Allergy Nausea and Verified 11/10/20 20:56 [From Miralax] Vomiting Home Medications: Home Meds . [No Known Home Meds] 12/08/19 [History] Past Medical History - Past Health History Medical/Surgical History: Denies Medical/Surgical History HEENT History: Reports: Impaired Vision, Other (See Below) Other HEENT History: wears glasses, hearing loss-s/p left tympanoplasty Cardiovascular History: Reports: None Respiratory History: Reports: None Gastrointestinal History: Reports: Diverticulosis, GERD, Other (See Below) Other Gastrointestinal History: occasional heartburn- takes OTC Prilosec Genitourinary History: Reports: BPH, Renal Calculus Other Genitourinary History: bladder cancer 3 months ago- grade 2 noninvasive Musculoskeletal History: Reports: None Neurological History: Reports: Seizure Other Neuro History: 22 years ago, had 5 seizures in 5 days (due to "exhaustion") Psychiatric History: Reports: None Endocrine/Metabolic History: Reports: Obesity/BMI 30+ Hematologic History: Reports: None Immunologic History: Reports: None Oncologic (Cancer) History: Reports: Bladder Dermatologic History: Reports: None - Infectious Disease History Infectious Disease History: Reports: Chicken Pox, Measles, Mumps Other Infectious Disease History: when a child - Past Surgical History Head Surgeries/Procedures: Reports: None HEENT Surgical History: Reports: Other (See Below) Other HEENT Surgeries/Procedures: surgery on ear drum (left tympanoplasty) Cardiovascular Surgical History: Reports: None Respiratory Surgical History: Reports: None GI Surgical History: Reports: Cholecystectomy, Colonoscopy, EGD, ERCP, Hernia Repair/Other Other GI Surgeries/Procedures: biopsy of pancreas- found scar tissue Male Surgical History: Reports: Kidney Stone Extraction, Renal Calculus, TURBT-Transurethral Resection of Bladder Tumor Endocrine Surgical History: Reports: None Neurological Surgical History: Reports: None Musculoskeletal Surgical History: Reports: None Oncologic Surgical History: Reports: None Dermatological Surgical History: Reports: None Social & Family History - Family History Family Medical History: No Pertinent Family History HEENT: Reports: None Cardiac: Reports: None GI: Reports: None Oncologic: Reports: Colon - Tobacco Use Tobacco Use Status *Q: Former Tobacco User Used Tobacco, but Quit: Yes Month/Year Tobacco Last Used: 03/2013 - Caffeine Use Caffeine Use: Reports: Coffee - Recreational Drug Use Recreational Drug Use: No H&P Review of Systems - Review of Systems: Review Of Systems: Comprehensive ROS is negative, except as noted in HPI. Exam - Exam Exam: See Below - Vital Signs Vital Signs: Last Vital Signs Temp 37.0 C 11/10/20 20:37 Pulse 87 11/10/20 20:37 Resp 16 11/10/20 20:37 BP 135/78 11/10/20 20:37 Pulse Ox 97 11/10/20 20:37 Weight: 97.296 kg - Exam General: Alert, Oriented HEENT: Mucosa Moist & [place] Neck: Supple Lungs: Clear to Auscultation, Normal Respiratory Effort Cardiovascular: Regular Rate, Regular Rhythm GI/Abdominal Exam: Normal Bowel Sounds, Soft, Non-Tender Extremities: Non-Tender, No Pedal Edema Skin: Warm, Dry, Intact Neurological: No: Focal Deficit - Patient Data Lab Results Last 24 hrs: Laboratory Results - last 24 hr 11/10/20 11/10/20 11/10/20 Range/Units 14:35 14:35 14:55 WBC 11.15 H (4.0-11.0) K/uL RBC 4.95 (4.50-5.90) M/uL Hgb 14.6 (13.0-17.0) g/dL Hct 42.2 (38.0-50.0) % MCV 85.3 (80.0-98.0) fL MCH 29.5 (27.0-32.0) pg MCHC 34.6 (31.0-37.0) g/dL RDW Std Deviation 41.5 (28.0-62.0) fl RDW Coeff of Bryn 13 (11.0-15.0) % Plt Count 247 (150-400) K/uL MPV 9.80 (7.40-12.00) fL Neut % (Auto) 80.4 H (48.0-80.0) % Lymph % (Auto) 7.6 L (16.0-40.0) % [place] % (Auto) 11.8 (0.0-15.0) % Eos % (Auto) 0.1 (0.0-7.0) % Baso % (Auto) 0.1 (0.0-1.5) % Neut # (Auto) 9.0 H (1.4-5.7) K/uL Lymph # (Auto) 0.9 (0.6-2.4) K/uL [place] # (Auto) 1.3 H (0.0-0.8) K/uL Eos # (Auto) 0.0 (0.0-0.7) K/uL Baso # (Auto) 0.0 (0.0-0.1) K/uL Nucleated RBC % 0.0 /100WBC Nucleated RBCs # 0 K/uL Sodium 134 L (136-148) mmol/L Potassium 3.9 (3.5-5.1) mmol/L Chloride 99 (98-107) mmol/L Carbon Dioxide 27.0 (21.0-32.0) mmol/L BUN 16 (7.0-18.0) mg/dL Creatinine 1.4 H (0.8-1.3) mg/dL Est Cr Clr Drug Dosing 46.37 mL/min Estimated GFR (MDRD) 51.0 ml/min Glucose 108 H (74-106) mg/dL Lactic Acid (0.4-2.0) mmol/L Calcium 8.3 L (8.5-10.1) mg/dL Total Bilirubin 1.4 H (0.2-1.0) mg/dL AST 13 L (15-37) IU/L ALT 34 (14-63) IU/L Alkaline Phosphatase 107 (46-116) U/L Total Protein 7.4 (6.4-8.2) g/dL Albumin 3.7 (3.4-5.0) g/dL Globulin 3.7 (2.6-4.0) g/dL Albumin/Globulin Ratio 1.0 (0.9-1.6) Lipase 82 (73-393) U/L Urine Color YELLOW Urine Appearance CLOUDY Urine pH 6.0 (5.0-8.0) Ur Specific [place] 1.025 (1.001-1.035) Urine Protein 100 H (NEGATIVE) mg/dL Urine Glucose (UA) NEGATIVE (NEGATIVE) mg/dL Urine Ketones NEGATIVE (NEGATIVE) mg/dL Urine Occult Blood LARGE H (NEGATIVE) Urine Nitrite POSITIVE H (NEGATIVE) Urine Bilirubin NEGATIVE (NEGATIVE) Urine Urobilinogen 0.2 (<2.0) EU/dL Ur Leukocyte Esterase MODERATE H (NEGATIVE) Urine RBC 15-20 (0-2/HPF) Urine WBC 30-40 (0-5/HPF) Ur Epithelial Cells FEW (NONE-FEW) Urine Bacteria 4+ H (NEGATIVE) Urine Mucus LIGHT (NONE-MOD) SARS-CoV-2 RNA (DA[place]SON) (NEGATIVE) 11/10/20 11/10/20 Range/Units 15:25 16:30 WBC (4.0-11.0) K/uL RBC (4.50-5.90) M/uL Hgb (13.0-17.0) g/dL Hct (38.0-50.0) % MCV (80.0-98.0) fL MCH (27.0-32.0) pg MCHC (31.0-37.0) g/dL RDW Std Deviation (28.0-62.0) fl RDW Coeff of Bryn (11.0-15.0) % Plt Count (150-400) K/uL MPV (7.40-12.00) fL Neut % (Auto) (48.0-80.0) % Lymph % (Auto) (16.0-40.0) % [place] % (Auto) (0.0-15.0) % Eos % (Auto) (0.0-7.0) % Baso % (Auto) (0.0-1.5) % Neut # (Auto) (1.4-5.7) K/uL Lymph # (Auto) (0.6-2.4) K/uL [place] # (Auto) (0.0-0.8) K/uL Eos # (Auto) (0.0-0.7) K/uL Baso # (Auto) (0.0-0.1) K/uL Nucleated RBC % /100WBC Nucleated RBCs # K/uL Sodium (136-148) mmol/L Potassium (3.5-5.1) mmol/L Chloride (98-107) mmol/L Carbon Dioxide (21.0-32.0) mmol/L BUN (7.0-18.0) mg/dL Creatinine (0.8-1.3) mg/dL Est Cr Clr Drug Dosing mL/min Estimated GFR (MDRD) ml/min Glucose (74-106) mg/dL Lactic Acid 0.6 (0.4-2.0) mmol/L Calcium (8.5-10.1) mg/dL Total Bilirubin (0.2-1.0) mg/dL AST (15-37) IU/L ALT (14-63) IU/L Alkaline Phosphatase (46-116) U/L Total Protein (6.4-8.2) g/dL Albumin (3.4-5.0) g/dL Globulin (2.6-4.0) g/dL Albumin/Globulin Ratio (0.9-1.6) Lipase (73-393) U/L Urine Color Urine Appearance Urine pH (5.0-8.0) Ur Specific [place] (1.001-1.035) Urine Protein (NEGATIVE) mg/dL Urine Glucose (UA) (NEGATIVE) mg/dL Urine Ketones (NEGATIVE) mg/dL Urine Occult Blood (NEGATIVE) Urine Nitrite (NEGATIVE) Urine Bilirubin (NEGATIVE) Urine Urobilinogen (<2.0) EU/dL Ur Leukocyte Esterase (NEGATIVE) Urine RBC (0-2/HPF) Urine WBC (0-5/HPF) Ur Epithelial Cells (NONE-FEW) Urine Bacteria (NEGATIVE) Urine Mucus (NONE-MOD) SARS-CoV-2 RNA (DA[place]SON) NEGATIVE (NEGATIVE) Result Diagrams: 11/11/20 06:00 11/11/20 06:00 Evelio Results Last 24 hrs: Microbiology 11/10/20 15:25 Influenza Type A Antigen Screen - Final Nasopharyngeal Swab NEGATIVE INFLUENZA A VIRUS AG REFERENCE RANGE: NEGATIVE Influenza Type B Antigen Screen - Final NEGATIVE INFLUENZA B VIRUS AG REFERENCE RANGE: NEGATIVE Sepsis Event Note - Evaluation Sepsis Screening Result: No Definite Risk - Focused Exam Vital Signs: Vital Signs Temp Pulse Resp BP Pulse Ox 11/10/20 20:37 37.0 C 87 16 135/78 97 11/10/20 18:14 37.8 C 85 106/59 L 95 11/10/20 17:00 90 120/82 98 11/10/20 16:00 92 115/70 98 11/10/20 15:00 89 120/60 98 11/10/20 14:39 38.8 C H 98 20 124/79 98 Problem List Initiated/Reviewed/Updated: Yes Orders Last 24hrs: Active Orders 24 hr Category Date Time Status Admission Status [Patient Status] [ADT] Stat ADT 11/10/20 18:31 Active Up ad Grace [RC] ASDIRECTED Care 11/10/20 20:55 Active Regular Diet [DIET] Diet 11/11/20 Breakfast Active CULTURE BLOOD [BC] Stat Lab 11/10/20 16:23 Received CULTURE BLOOD [BC] Stat Lab 11/10/20 16:30 Received CULTURE URINE [MREF] Stat Lab 11/10/20 14:55 Received Acetaminophen [TylenoL] Med 11/10/20 20:55 Active 650 mg PO Q6H PRN Sodium Chloride 0.9% [Normal Saline] 1,000 ml Med 11/10/20 21:00 Active IV ASDIRECTED oxyCODONE Med 11/10/20 20:55 Active 5 mg PO Q4H PRN Blood Culture x2 Reflex Set [OM.PC] Stat Oth 11/10/20 16:12 Ordered Isolation [COMM] Routine Oth 11/10/20 14:44 Active Medication Orders Acetaminophen (Acetaminophen 325 Mg Tab) 650 mg PO Q6H PRN PRN Reason: Pain/Fever Last Admin: 11/10/20 21:37 Dose: 650 mg Documented by: FINESSE Sodium Chloride (Normal Saline) 1,000 mls @ 125 mls/hr IV ASDIRECTED DEXTER Last Admin: 11/10/20 21:38 Dose: 125 mls/hr Documented by: FINESSE Oxycodone HCl (Oxycodone 5 Mg Tab) 5 mg PO Q4H PRN PRN Reason: Pain Last Admin: 11/10/20 21:37 Dose: 5 mg Documented by: FINESSE Assessment/Plan Comment:: 65 yo male admitted for acute pyelonephritis. We will treat with Rocephin. Cultures pending
[2020-11-10] MEDS ORDERED: Ondansetron 4 MG/2 ML SDV IVPUSH PRN (23:55)
[2020-11-11] MEDS: oxyCODONE 5 MG Tab PO PRN ×2 (06:01→16:00)
[2020-11-11] MEDS: Sodium Chloride 0.9% 1,000 ML IV SCH ×3 (06:02→22:33)
[2020-11-11 06:53] LABS: CARBON DIOXIDE,CO2 27.3 mmol/L (21.0-32.0); POTASSIUM,K 4.1 mmol/L (3.5-5.1)
--- NOTE | 2020-11-11 14:53 | PCM.PN ---
- General Info Date of Service: 11/11/20 - Review of Systems Systems Review Comment:: patient reports some nausea and vomting this morning, but feeling better, still feeling weak, flank pain controlled - Patient Data Vitals - Most Recent: Last Vital Signs Temp 36.6 C 11/11/20 06:00 Pulse 79 11/11/20 12:00 Resp 14 11/11/20 12:00 BP 113/70 11/11/20 12:00 Pulse Ox 97 11/11/20 12:00 Weight - Most Recent: 97.296 kg I&O - Last 24 Hours: Intake & Output 11/10/20 11/11/20 11/11/20 22:59 06:59 14:59 Intake Total 1275 Output Total 800 Balance 475 Lab Results Last 24 Hours: Laboratory Results - last 24 hr 11/10/20 11/10/20 11/10/20 Range/Units 14:35 14:35 14:55 WBC 11.15 H (4.0-11.0) K/uL RBC 4.95 (4.50-5.90) M/uL Hgb 14.6 (13.0-17.0) g/dL Hct 42.2 (38.0-50.0) % MCV 85.3 (80.0-98.0) fL MCH 29.5 (27.0-32.0) pg MCHC 34.6 (31.0-37.0) g/dL RDW Std Deviation 41.5 (28.0-62.0) fl RDW Coeff of Bryn 13 (11.0-15.0) % Plt Count 247 (150-400) K/uL MPV 9.80 (7.40-12.00) fL Neut % (Auto) 80.4 H (48.0-80.0) % Lymph % (Auto) 7.6 L (16.0-40.0) % [place] % (Auto) 11.8 (0.0-15.0) % Eos % (Auto) 0.1 (0.0-7.0) % Baso % (Auto) 0.1 (0.0-1.5) % Neut # (Auto) 9.0 H (1.4-5.7) K/uL Lymph # (Auto) 0.9 (0.6-2.4) K/uL [place] # (Auto) 1.3 H (0.0-0.8) K/uL Eos # (Auto) 0.0 (0.0-0.7) K/uL Baso # (Auto) 0.0 (0.0-0.1) K/uL Nucleated RBC % 0.0 /100WBC Nucleated RBCs # 0 K/uL Sodium 134 L (136-148) mmol/L Potassium 3.9 (3.5-5.1) mmol/L Chloride 99 (98-107) mmol/L Carbon Dioxide 27.0 (21.0-32.0) mmol/L BUN 16 (7.0-18.0) mg/dL Creatinine 1.4 H (0.8-1.3) mg/dL Est Cr Clr Drug Dosing 46.37 mL/min Estimated GFR (MDRD) 51.0 ml/min Glucose 108 H (74-106) mg/dL Lactic Acid (0.4-2.0) mmol/L Calcium 8.3 L (8.5-10.1) mg/dL Total Bilirubin 1.4 H (0.2-1.0) mg/dL AST 13 L (15-37) IU/L ALT 34 (14-63) IU/L Alkaline Phosphatase 107 (46-116) U/L Total Protein 7.4 (6.4-8.2) g/dL Albumin 3.7 (3.4-5.0) g/dL Globulin 3.7 (2.6-4.0) g/dL Albumin/Globulin Ratio 1.0 (0.9-1.6) Lipase 82 (73-393) U/L Urine Color YELLOW Urine Appearance CLOUDY Urine pH 6.0 (5.0-8.0) Ur Specific [place] 1.025 (1.001-1.035) Urine Protein 100 H (NEGATIVE) mg/dL Urine Glucose (UA) NEGATIVE (NEGATIVE) mg/dL Urine Ketones NEGATIVE (NEGATIVE) mg/dL Urine Occult Blood LARGE H (NEGATIVE) Urine Nitrite POSITIVE H (NEGATIVE) Urine Bilirubin NEGATIVE (NEGATIVE) Urine Urobilinogen 0.2 (<2.0) EU/dL Ur Leukocyte Esterase MODERATE H (NEGATIVE) Urine RBC 15-20 (0-2/HPF) Urine WBC 30-40 (0-5/HPF) Ur Epithelial Cells FEW (NONE-FEW) Urine Bacteria 4+ H (NEGATIVE) Urine Mucus LIGHT (NONE-MOD) SARS-CoV-2 RNA (DAWSON) (NEGATIVE) 11/10/20 11/10/20 11/11/20 Range/Units 15:25 16:30 06:00 WBC 8.61 (4.0-11.0) K/uL RBC 4.57 (4.50-5.90) M/uL Hgb 13.3 (13.0-17.0) g/dL Hct 39.6 (38.0-50.0) % MCV 86.7 (80.0-98.0) fL MCH 29.1 (27.0-32.0) pg MCHC 33.6 (31.0-37.0) g/dL RDW Std Deviation 43.2 (28.0-62.0) fl RDW Coeff of Bryn 14 (11.0-15.0) % Plt Count 220 (150-400) K/uL MPV 9.50 (7.40-12.00) fL Neut % (Auto) 71.6 (48.0-80.0) % Lymph % (Auto) 10.5 L (16.0-40.0) % [place] % (Auto) 17.4 H (0.0-15.0) % Eos % (Auto) 0.3 (0.0-7.0) % Baso % (Auto) 0.2 (0.0-1.5) % Neut # (Auto) 6.2 H (1.4-5.7) K/uL Lymph # (Auto) 0.9 (0.6-2.4) K/uL [place] # (Auto) 1.5 H (0.0-0.8) K/uL Eos # (Auto) 0.0 (0.0-0.7) K/uL Baso # (Auto) 0.0 (0.0-0.1) K/uL Nucleated RBC % 0.0 /100WBC Nucleated RBCs # 0 K/uL Sodium (136-148) mmol/L Potassium (3.5-5.1) mmol/L Chloride (98-107) mmol/L Carbon Dioxide (21.0-32.0) mmol/L BUN (7.0-18.0) mg/dL Creatinine (0.8-1.3) mg/dL Est Cr Clr Drug Dosing mL/min Estimated GFR (MDRD) ml/min Glucose (74-106) mg/dL Lactic Acid 0.6 (0.4-2.0) mmol/L Calcium (8.5-10.1) mg/dL Total Bilirubin (0.2-1.0) mg/dL AST (15-37) IU/L ALT (14-63) IU/L Alkaline Phosphatase (46-116) U/L Total Protein (6.4-8.2) g/dL Albumin (3.4-5.0) g/dL Globulin (2.6-4.0) g/dL Albumin/Globulin Ratio (0.9-1.6) Lipase (73-393) U/L Urine Color Urine Appearance Urine pH (5.0-8.0) Ur Specific [place] (1.001-1.035) Urine Protein (NEGATIVE) mg/dL Urine Glucose (UA) (NEGATIVE) mg/dL Urine Ketones (NEGATIVE) mg/dL Urine Occult Blood (NEGATIVE) Urine Nitrite (NEGATIVE) Urine Bilirubin (NEGATIVE) Urine Urobilinogen (<2.0) EU/dL Ur Leukocyte Esterase (NEGATIVE) Urine RBC (0-2/HPF) Urine WBC (0-5/HPF) Ur Epithelial Cells (NONE-FEW) Urine Bacteria (NEGATIVE) Urine Mucus (NONE-MOD) SARS-CoV-2 RNA (DAWSON) NEGATIVE (NEGATIVE) 11/11/20 Range/Units 06:00 WBC (4.0-11.0) K/uL RBC (4.50-5.90) M/uL Hgb (13.0-17.0) g/dL Hct (38.0-50.0) % MCV (80.0-98.0) fL MCH (27.0-32.0) pg MCHC (31.0-37.0) g/dL RDW Std Deviation (28.0-62.0) fl RDW Coeff of Bryn (11.0-15.0) % Plt Count (150-400) K/uL MPV (7.40-12.00) fL Neut % (Auto) (48.0-80.0) % Lymph % (Auto) (16.0-40.0) % [place] % (Auto) (0.0-15.0) % Eos % (Auto) (0.0-7.0) % Baso % (Auto) (0.0-1.5) % Neut # (Auto) (1.4-5.7) K/uL Lymph # (Auto) (0.6-2.4) K/uL [place] # (Auto) (0.0-0.8) K/uL Eos # (Auto) (0.0-0.7) K/uL Baso # (Auto) (0.0-0.1) K/uL Nucleated RBC % /100WBC Nucleated RBCs # K/uL Sodium 135 L (136-148) mmol/L Potassium 4.1 (3.5-5.1) mmol/L Chloride 101 (98-107) mmol/L Carbon Dioxide 27.3 (21.0-32.0) mmol/L BUN 17 (7.0-18.0) mg/dL Creatinine 1.3 (0.8-1.3) mg/dL Est Cr Clr Drug Dosing 53.67 mL/min Estimated GFR (MDRD) 55.6 ml/min Glucose 95 (74-106) mg/dL Lactic Acid (0.4-2.0) mmol/L Calcium 7.6 L (8.5-10.1) mg/dL Total Bilirubin (0.2-1.0) mg/dL AST (15-37) IU/L ALT (14-63) IU/L Alkaline Phosphatase (46-116) U/L Total Protein (6.4-8.2) g/dL Albumin (3.4-5.0) g/dL Globulin (2.6-4.0) g/dL Albumin/Globulin Ratio (0.9-1.6) Lipase (73-393) U/L Urine Color Urine Appearance Urine pH (5.0-8.0) Ur Specific [place] (1.001-1.035) Urine Protein (NEGATIVE) mg/dL Urine Glucose (UA) (NEGATIVE) mg/dL Urine Ketones (NEGATIVE) mg/dL Urine Occult Blood (NEGATIVE) Urine Nitrite (NEGATIVE) Urine Bilirubin (NEGATIVE) Urine Urobilinogen (<2.0) EU/dL Ur Leukocyte Esterase (NEGATIVE) Urine RBC (0-2/HPF) Urine WBC (0-5/HPF) Ur Epithelial Cells (NONE-FEW) Urine Bacteria (NEGATIVE) Urine Mucus (NONE-MOD) SARS-CoV-2 RNA (DAWSON) (NEGATIVE) Evelio Results Last 24 Hours: Microbiology 11/10/20 15:25 Influenza Type A Antigen Screen - Final Nasopharyngeal Swab NEGATIVE INFLUENZA A VIRUS AG REFERENCE RANGE: NEGATIVE Influenza Type B Antigen Screen - Final NEGATIVE INFLUENZA B VIRUS AG REFERENCE RANGE: NEGATIVE Med Orders - Current: Current Medications Acetaminophen (Acetaminophen 325 Mg Tab) 650 mg PO Q6H PRN PRN Reason: Pain/Fever Last Admin: 11/10/20 21:37 Dose: 650 mg Documented by: Sodium Chloride (Normal Saline) 1,000 mls @ 125 mls/hr IV ASDIRECTED DEXTER Last Admin: 11/11/20 14:04 Dose: 125 mls/hr Documented by: Ceftriaxone Sodium/Dextrose 1 (gm/ Premix) 50 mls @ 100 mls/hr IV Q24H DEXTER Ondansetron HCl (Ondansetron 4 Mg/2 Ml Sdv) 4 mg IVPUSH Q4H PRN PRN Reason: Nausea Oxycodone HCl (Oxycodone 5 Mg Tab) 5 mg PO Q4H PRN PRN Reason: Pain Last Admin: 11/11/20 06:01 Dose: 5 mg Documented by: Discontinued Medications Sodium Chloride (Normal Saline) 1,000 mls @ 999 mls/hr IV BOLUS ONE Stop: 11/10/20 15:43 Last Admin: 11/10/20 14:50 Dose: 999 mls/hr Documented by: Ceftriaxone Sodium/Dextrose 1 (gm/ Premix) 50 mls @ 100 mls/hr IV ONETIME ONE Stop: 11/10/20 16:27 Last Admin: 11/10/20 16:41 Dose: 100 mls/hr Documented by: Sodium Chloride (Normal Saline) 1,000 mls @ 999 mls/hr IV STAT ONE Stop: 11/10/20 19:35 Last Admin: 11/10/20 18:39 Dose: 999 mls/hr Documented by: Ketorolac Tromethamine (Ketorolac 30 Mg/Ml Sdv) 30 mg IVPUSH ONETIME ONE Stop: 11/10/20 14:44 Last Admin: 11/10/20 14:50 Dose: 30 mg Documented by: Ondansetron HCl (Ondansetron 4 Mg/2 Ml Sdv) 4 mg IVPUSH ONETIME ONE Stop: 11/10/20 14:44 Last Admin: 11/10/20 14:50 Dose: 4 mg Documented by: - Exam General: Alert, Oriented HEENT: Pupils Equal Neck: Supple Lungs: Clear to Auscultation, Normal Respiratory Effort Cardiovascular: Regular Rate, Regular Rhythm GI/Abdominal Exam: Normal Bowel Sounds, Soft, Non-Tender Extremities: Non-Tender, No Pedal Edema Skin: Warm, Dry, Intact - Patient Data Lab Results Last 24 hrs: Laboratory Results - last 24 hr 11/10/20 11/10/20 11/10/20 Range/Units 14:35 14:35 14:55 WBC 11.15 H (4.0-11.0) K/uL RBC 4.95 (4.50-5.90) M/uL Hgb 14.6 (13.0-17.0) g/dL Hct 42.2 (38.0-50.0) % MCV 85.3 (80.0-98.0) fL MCH 29.5 (27.0-32.0) pg MCHC 34.6 (31.0-37.0) g/dL RDW Std Deviation 41.5 (28.0-62.0) fl RDW Coeff of Bryn 13 (11.0-15.0) % Plt Count 247 (150-400) K/uL MPV 9.80 (7.40-12.00) fL Neut % (Auto) 80.4 H (48.0-80.0) % Lymph % (Auto) 7.6 L (16.0-40.0) % [place] % (Auto) 11.8 (0.0-15.0) % Eos % (Auto) 0.1 (0.0-7.0) % Baso % (Auto) 0.1 (0.0-1.5) % Neut # (Auto) 9.0 H (1.4-5.7) K/uL Lymph # (Auto) 0.9 (0.6-2.4) K/uL [place] # (Auto) 1.3 H (0.0-0.8) K/uL Eos # (Auto) 0.0 (0.0-0.7) K/uL Baso # (Auto) 0.0 (0.0-0.1) K/uL Nucleated RBC % 0.0 /100WBC Nucleated RBCs # 0 K/uL Sodium 134 L (136-148) mmol/L Potassium 3.9 (3.5-5.1) mmol/L Chloride 99 (98-107) mmol/L Carbon Dioxide 27.0 (21.0-32.0) mmol/L BUN 16 (7.0-18.0) mg/dL Creatinine 1.4 H (0.8-1.3) mg/dL Est Cr Clr Drug Dosing 46.37 mL/min Estimated GFR (MDRD) 51.0 ml/min Glucose 108 H (74-106) mg/dL Lactic Acid (0.4-2.0) mmol/L Calcium 8.3 L (8.5-10.1) mg/dL Total Bilirubin 1.4 H (0.2-1.0) mg/dL AST 13 L (15-37) IU/L ALT 34 (14-63) IU/L Alkaline Phosphatase 107 (46-116) U/L Total Protein 7.4 (6.4-8.2) g/dL Albumin 3.7 (3.4-5.0) g/dL Globulin 3.7 (2.6-4.0) g/dL Albumin/Globulin Ratio 1.0 (0.9-1.6) Lipase 82 (73-393) U/L Urine Color YELLOW Urine Appearance CLOUDY Urine pH 6.0 (5.0-8.0) Ur Specific [place] 1.025 (1.001-1.035) Urine Protein 100 H (NEGATIVE) mg/dL Urine Glucose (UA) NEGATIVE (NEGATIVE) mg/dL Urine Ketones NEGATIVE (NEGATIVE) mg/dL Urine Occult Blood LARGE H (NEGATIVE) Urine Nitrite POSITIVE H (NEGATIVE) Urine Bilirubin NEGATIVE (NEGATIVE) Urine Urobilinogen 0.2 (<2.0) EU/dL Ur Leukocyte Esterase MODERATE H (NEGATIVE) Urine RBC 15-20 (0-2/HPF) Urine WBC 30-40 (0-5/HPF) Ur Epithelial Cells FEW (NONE-FEW) Urine Bacteria 4+ H (NEGATIVE) Urine Mucus LIGHT (NONE-MOD) SARS-CoV-2 RNA (DAWSON) (NEGATIVE) 11/10/20 11/10/20 11/11/20 Range/Units 15:25 16:30 06:00 WBC 8.61 (4.0-11.0) K/uL RBC 4.57 (4.50-5.90) M/uL Hgb 13.3 (13.0-17.0) g/dL Hct 39.6 (38.0-50.0) % MCV 86.7 (80.0-98.0) fL MCH 29.1 (27.0-32.0) pg MCHC 33.6 (31.0-37.0) g/dL RDW Std Deviation 43.2 (28.0-62.0) fl RDW Coeff of Bryn 14 (11.0-15.0) % Plt Count 220 (150-400) K/uL MPV 9.50 (7.40-12.00) fL Neut % (Auto) 71.6 (48.0-80.0) % Lymph % (Auto) 10.5 L (16.0-40.0) % [place] % (Auto) 17.4 H (0.0-15.0) % Eos % (Auto) 0.3 (0.0-7.0) % Baso % (Auto) 0.2 (0.0-1.5) % Neut # (Auto) 6.2 H (1.4-5.7) K/uL Lymph # (Auto) 0.9 (0.6-2.4) K/uL [place] # (Auto) 1.5 H (0.0-0.8) K/uL Eos # (Auto) 0.0 (0.0-0.7) K/uL Baso # (Auto) 0.0 (0.0-0.1) K/uL Nucleated RBC % 0.0 /100WBC Nucleated RBCs # 0 K/uL Sodium (136-148) mmol/L Potassium (3.5-5.1) mmol/L Chloride (98-107) mmol/L Carbon Dioxide (21.0-32.0) mmol/L BUN (7.0-18.0) mg/dL Creatinine (0.8-1.3) mg/dL Est Cr Clr Drug Dosing mL/min Estimated GFR (MDRD) ml/min Glucose (74-106) mg/dL Lactic Acid 0.6 (0.4-2.0) mmol/L Calcium (8.5-10.1) mg/dL Total Bilirubin (0.2-1.0) mg/dL AST (15-37) IU/L ALT (14-63) IU/L Alkaline Phosphatase (46-116) U/L Total Protein (6.4-8.2) g/dL Albumin (3.4-5.0) g/dL Globulin (2.6-4.0) g/dL Albumin/Globulin Ratio (0.9-1.6) Lipase (73-393) U/L Urine Color Urine Appearance Urine pH (5.0-8.0) Ur Specific [place] (1.001-1.035) Urine Protein (NEGATIVE) mg/dL Urine Glucose (UA) (NEGATIVE) mg/dL Urine Ketones (NEGATIVE) mg/dL Urine Occult Blood (NEGATIVE) Urine Nitrite (NEGATIVE) Urine Bilirubin (NEGATIVE) Urine Urobilinogen (<2.0) EU/dL Ur Leukocyte Esterase (NEGATIVE) Urine RBC (0-2/HPF) Urine WBC (0-5/HPF) Ur Epithelial Cells (NONE-FEW) Urine Bacteria (NEGATIVE) Urine Mucus (NONE-MOD) SARS-CoV-2 RNA (DAWSON) NEGATIVE (NEGATIVE) 11/11/20 Range/Units 06:00 WBC (4.0-11.0) K/uL RBC (4.50-5.90) M/uL Hgb (13.0-17.0) g/dL Hct (38.0-50.0) % MCV (80.0-98.0) fL MCH (27.0-32.0) pg MCHC (31.0-37.0) g/dL RDW Std Deviation (28.0-62.0) fl RDW Coeff of Bryn (11.0-15.0) % Plt Count (150-400) K/uL MPV (7.40-12.00) fL Neut % (Auto) (48.0-80.0) % Lymph % (Auto) (16.0-40.0) % [place] % (Auto) (0.0-15.0) % Eos % (Auto) (0.0-7.0) % Baso % (Auto) (0.0-1.5) % Neut # (Auto) (1.4-5.7) K/uL Lymph # (Auto) (0.6-2.4) K/uL [place] # (Auto) (0.0-0.8) K/uL Eos # (Auto) (0.0-0.7) K/uL Baso # (Auto) (0.0-0.1) K/uL Nucleated RBC % /100WBC Nucleated RBCs # K/uL Sodium 135 L (136-148) mmol/L Potassium 4.1 (3.5-5.1) mmol/L Chloride 101 (98-107) mmol/L Carbon Dioxide 27.3 (21.0-32.0) mmol/L BUN 17 (7.0-18.0) mg/dL Creatinine 1.3 (0.8-1.3) mg/dL Est Cr Clr Drug Dosing 53.67 mL/min Estimated GFR (MDRD) 55.6 ml/min Glucose 95 (74-106) mg/dL Lactic Acid (0.4-2.0) mmol/L Calcium 7.6 L (8.5-10.1) mg/dL Total Bilirubin (0.2-1.0) mg/dL AST (15-37) IU/L ALT (14-63) IU/L Alkaline Phosphatase (46-116) U/L Total Protein (6.4-8.2) g/dL Albumin (3.4-5.0) g/dL Globulin (2.6-4.0) g/dL Albumin/Globulin Ratio (0.9-1.6) Lipase (73-393) U/L Urine Color Urine Appearance Urine pH (5.0-8.0) Ur Specific [place] (1.001-1.035) Urine Protein (NEGATIVE) mg/dL Urine Glucose (UA) (NEGATIVE) mg/dL Urine Ketones (NEGATIVE) mg/dL Urine Occult Blood (NEGATIVE) Urine Nitrite (NEGATIVE) Urine Bilirubin (NEGATIVE) Urine Urobilinogen (<2.0) EU/dL Ur Leukocyte Esterase (NEGATIVE) Urine RBC (0-2/HPF) Urine WBC (0-5/HPF) Ur Epithelial Cells (NONE-FEW) Urine Bacteria (NEGATIVE) Urine Mucus (NONE-MOD) SARS-CoV-2 RNA (DAWSON) (NEGATIVE) Result Diagrams: 11/11/20 06:00 11/11/20 06:00 Evelio Results Last 24 hrs: Microbiology 11/10/20 15:25 Influenza Type A Antigen Screen - Final Nasopharyngeal Swab NEGATIVE INFLUENZA A VIRUS AG REFERENCE RANGE: NEGATIVE Influenza Type B Antigen Screen - Final NEGATIVE INFLUENZA B VIRUS AG REFERENCE RANGE: NEGATIVE Sepsis Event Note - Evaluation Sepsis Screening Result: No Definite Risk - Focused Exam Vital Signs: Vital Signs Temp Pulse Resp BP Pulse Ox 11/11/20 12:00 79 14 113/70 97 11/11/20 06:00 36.6 C 78 16 121/79 98 - Problem List Review Problem List Initiated/Reviewed/Updated: Yes - My Orders Last 24 Hours: My Active Orders 11/10/20 20:55 Up ad Grace [RC] ASDIRECTED Acetaminophen [TylenoL] 650 mg PO Q6H PRN oxyCODONE 5 mg PO Q4H PRN 11/10/20 21:00 Sodium Chloride 0.9% [Normal Saline] 1,000 ml IV ASDIRECTED 11/10/20 23:55 Oxygen Therapy [RC] PRN VTE/DVT Education [RC] PER UNIT ROUTINE Vital Signs [RC] Q4H Ondansetron [Zofran] 4 mg IVPUSH Q4H PRN Resuscitation Status Routine 11/10/20 23:56 Antiembolic Devices [RC] PER UNIT ROUTINE Sequential Compression Device [OM.PC] Per Unit Routine 11/11/20 Breakfast Regular Diet [DIET] 11/11/20 15:00 cefTRIAXone [Rocephin in Dextrose,Iso-Osm 1 GM/50 ML] 1 gm Premix Bag 1 bag IV Q24H 11/12/20 05:11 BASIC METABOLIC PANEL,BMP [CHEM] AM CBC WITH AUTO DIFF [HEME] AM - Plan Plan:: 65 yo male admitted for acute pyelonephritis. We will continue with Rocephin. Oxycodone for pain control. Cultures are pending. Will switch to inpatient as his symptoms are slow to resolve.
[2020-11-11] MEDS ORDERED: cefTRIAXone 1 GM in Premix Bag 1 BAG IV SCH (15:00)
[2020-11-11] MEDS: Acetaminophen 325 MG Tab PO PRN (20:54)
[2020-11-12] MEDS: Sodium Chloride 0.9% 1,000 ML IV SCH ×3 (06:44→23:32)
[2020-11-12 06:50] LABS: BLOOD UREA NITROGEN,BUN 13 mg/dL (7.0-18.0); CARBON DIOXIDE,CO2 25.5 mmol/L (21.0-32.0); CHLORIDE,CL 104 mmol/L (98-107); GLUCOSE RANDOM 97 mg/dL (74-106); POTASSIUM,K 4.2 mmol/L (3.5-5.1); SODIUM,NA 138 mmol/L (136-148)
[2020-11-12] MEDS ORDERED: guaiFENesin/Dextromethorphan 100-10 MG/5 ML Soln 10 ML Cup PO PRN (12:03)
[2020-11-12] MEDS ORDERED: Docusate Sodium 100 MG Cap PO PRN (12:04)
[2020-11-12] MEDS ORDERED: cefTRIAXone 2 GM in Premix Bag 1 BAG IV SCH (15:00)
--- NOTE | 2020-11-12 16:25 | PCM.PN ---
- General Info Date of Service: 11/12/20 Admission Dx/Problem (Free Text): Admission Diagnosis/Problem Admission Diagnosis/Problem Pyelonephritis Subjective Update: Patient seen at bedside, states that he still continues to have low back pain, has been able to tolerate diet today, 1 x 4 blood culture came back positive for gram-positive cocci in cluster Functional Status: Reports: Tolerating Diet, Ambulating, Urinating - Review of Systems General: Reports: Fatigue. Denies: Fever, Weakness Pulmonary: Denies: Shortness of Breath, Pleuritic Chest Pain Cardiovascular: Denies: Chest Pain, Palpitations, Dyspnea on Exertion Gastrointestinal: Denies: Abdominal Pain, Constipation, Decreased Appetite, Diarrhea Genitourinary: Denies: Dysuria, Frequency, Burning Musculoskeletal: Reports: Back Pain. Denies: Neck Pain, Shoulder Pain, Leg Pain Skin: Denies: Cyanosis, Jaundice, Mottled Neurological: Denies: Confusion, Dizziness, Headache - Patient Data Vitals - Most Recent: Last Vital Signs Temp 36.6 C 11/12/20 12:00 Pulse 67 11/12/20 12:00 Resp 17 11/12/20 12:00 BP 118/77 11/12/20 12:00 Pulse Ox 97 11/12/20 12:00 Weight - Most Recent: 97.296 kg I&O - Last 24 Hours: Intake & Output 11/12/20 11/12/20 11/12/20 06:59 14:59 22:59 Intake Total 520 Output Total 2000 Balance -1480 Lab Results Last 24 Hours: Laboratory Results - last 24 hr 11/12/20 11/12/20 Range/Units 05:23 05:23 WBC 7.45 (4.0-11.0) K/uL RBC 4.65 (4.50-5.90) M/uL Hgb 13.7 (13.0-17.0) g/dL Hct 40.2 (38.0-50.0) % MCV 86.5 (80.0-98.0) fL MCH 29.5 (27.0-32.0) pg MCHC 34.1 (31.0-37.0) g/dL RDW Std Deviation 42.9 (28.0-62.0) fl RDW Coeff of Bryn 14 (11.0-15.0) % Plt Count 191 (150-400) K/uL MPV 10.20 (7.40-12.00) fL Add Manual Diff YES Neutrophils % (Manual) 65 (48.0-80.0) % Lymphocytes % (Manual) 16 (16.0-40.0) % Monocytes % (Manual) 15 (0.0-15.0) % Eosinophils % (Manual) 3 (0.0-7.0) % Basophils % (Manual) 1 (0.0-1.5) % Nucleated RBC % 0.0 /100WBC Absolute Seg Neuts 4.8 (1.4-5.7) Lymphocytes # (Manual) 1.2 (0.6-2.4) Monocytes # (Manual) 1.1 H (0.0-0.8) Eosinophils # (Manual) 0.2 (0.0-0.7) Basophils # (Manual) 0.1 (0.0-0.1) Nucleated RBCs # 0 K/uL Sodium 138 (136-148) mmol/L Potassium 4.2 (3.5-5.1) mmol/L Chloride 104 (98-107) mmol/L Carbon Dioxide 25.5 (21.0-32.0) mmol/L BUN 13 (7.0-18.0) mg/dL Creatinine 1.2 (0.8-1.3) mg/dL Est Cr Clr Drug Dosing 58.14 mL/min Estimated GFR (MDRD) > 60.0 ml/min Glucose 97 (74-106) mg/dL Calcium 7.7 L (8.5-10.1) mg/dL Evelio Results Last 24 Hours: Microbiology 11/10/20 16:30 Aerobic Blood Culture - Final Blood - Venous - Lab Draw Anaerobic Blood Culture - Preliminary NO GROWTH AFTER 1 DAY 11/10/20 16:23 Aerobic Blood Culture - Preliminary Blood - Venous NO GROWTH AFTER 1 DAY Anaerobic Blood Culture - Preliminary NO GROWTH AFTER 1 DAY Med Orders - Current: Current Medications Acetaminophen (Acetaminophen 325 Mg Tab) 650 mg PO Q6H PRN PRN Reason: Pain/Fever Last Admin: 11/11/20 20:54 Dose: 650 mg Documented by: Docusate Sodium (Docusate Sodium 100 Mg Cap) 100 mg PO Q12H PRN PRN Reason: Constipation Last Admin: 11/12/20 14:54 Dose: 100 mg Documented by: Guaifenesin/Dextromethorphan (Guaifenesin/Dextromethorphan 100-10 Mg/5 Ml Soln 10 Ml Cup) 10 ml PO Q4H PRN PRN Reason: Cough Sodium Chloride (Normal Saline) 1,000 mls @ 125 mls/hr IV ASDIRECTED DEXTER Last Admin: 11/12/20 15:02 Dose: 125 mls/hr Documented by: Ceftriaxone Sodium/Dextrose 2 (gm/ Premix) 50 mls @ 100 mls/hr IV Q24H [facility] Last Admin: 11/12/20 14:55 Dose: 100 mls/hr Documented by: Ondansetron HCl (Ondansetron 4 Mg/2 Ml Sdv) 4 mg IVPUSH Q4H PRN PRN Reason: Nausea Last Admin: 11/11/20 17:44 Dose: 4 mg Documented by: Oxycodone HCl (Oxycodone 5 Mg Tab) 5 mg PO Q4H PRN PRN Reason: Pain Last Admin: 11/11/20 16:00 Dose: 5 mg Documented by: Discontinued Medications Sodium Chloride (Normal Saline) 1,000 mls @ 999 mls/hr IV BOLUS ONE Stop: 11/10/20 15:43 Last Admin: 11/10/20 14:50 Dose: 999 mls/hr Documented by: Ceftriaxone Sodium/Dextrose 1 (gm/ Premix) 50 mls @ 100 mls/hr IV ONETIME ONE Stop: 11/10/20 16:27 Last Admin: 11/10/20 16:41 Dose: 100 mls/hr Documented by: Sodium Chloride (Normal Saline) 1,000 mls @ 999 mls/hr IV STAT ONE Stop: 11/10/20 19:35 Last Admin: 11/10/20 18:39 Dose: 999 mls/hr Documented by: Ceftriaxone Sodium/Dextrose 1 (gm/ Premix) 50 mls @ 100 mls/hr IV Q24H [facility] Last Admin: 11/11/20 15:50 Dose: 100 mls/hr Documented by: Ketorolac Tromethamine (Ketorolac 30 Mg/Ml Sdv) 30 mg IVPUSH ONETIME ONE Stop: 11/10/20 14:44 Last Admin: 11/10/20 14:50 Dose: 30 mg Documented by: Ondansetron HCl (Ondansetron 4 Mg/2 Ml Sdv) 4 mg IVPUSH ONETIME ONE Stop: 11/10/20 14:44 Last Admin: 11/10/20 14:50 Dose: 4 mg Documented by: - Exam General: Alert, Oriented Neck: Supple Lungs: Clear to Auscultation, Normal Respiratory Effort Cardiovascular: Regular Rhythm GI/Abdominal Exam: Normal Bowel Sounds, Soft. No: Tender, Abnormal Bowel Sounds, Hepatomegaly, Splenomegaly (Male) Exam: No: Suprapubic Fullness - Patient Data Lab Results Last 24 hrs: Laboratory Results - last 24 hr 11/12/20 11/12/20 Range/Units 05:23 05:23 WBC 7.45 (4.0-11.0) K/uL RBC 4.65 (4.50-5.90) M/uL Hgb 13.7 (13.0-17.0) g/dL Hct 40.2 (38.0-50.0) % MCV 86.5 (80.0-98.0) fL MCH 29.5 (27.0-32.0) pg MCHC 34.1 (31.0-37.0) g/dL RDW Std Deviation 42.9 (28.0-62.0) fl RDW Coeff of Bryn 14 (11.0-15.0) % Plt Count 191 (150-400) K/uL MPV 10.20 (7.40-12.00) fL Add Manual Diff YES Neutrophils % (Manual) 65 (48.0-80.0) % Lymphocytes % (Manual) 16 (16.0-40.0) % Monocytes % (Manual) 15 (0.0-15.0) % Eosinophils % (Manual) 3 (0.0-7.0) % Basophils % (Manual) 1 (0.0-1.5) % Nucleated RBC % 0.0 /100WBC Absolute Seg Neuts 4.8 (1.4-5.7) Lymphocytes # (Manual) 1.2 (0.6-2.4) Monocytes # (Manual) 1.1 H (0.0-0.8) Eosinophils # (Manual) 0.2 (0.0-0.7) Basophils # (Manual) 0.1 (0.0-0.1) Nucleated RBCs # 0 K/uL Sodium 138 (136-148) mmol/L Potassium 4.2 (3.5-5.1) mmol/L Chloride 104 (98-107) mmol/L Carbon Dioxide 25.5 (21.0-32.0) mmol/L BUN 13 (7.0-18.0) mg/dL Creatinine 1.2 (0.8-1.3) mg/dL Est Cr Clr Drug Dosing 58.14 mL/min Estimated GFR (MDRD) > 60.0 ml/min Glucose 97 (74-106) mg/dL Calcium 7.7 L (8.5-10.1) mg/dL Result Diagrams: 11/12/20 05:23 11/12/20 05:23 Evelio Results Last 24 hrs: Microbiology 11/10/20 16:30 Aerobic Blood Culture - Final Blood - Venous - Lab Draw Anaerobic Blood Culture - Preliminary NO GROWTH AFTER 1 DAY 11/10/20 16:23 Aerobic Blood Culture - Preliminary Blood - Venous NO GROWTH AFTER 1 DAY Anaerobic Blood Culture - Preliminary NO GROWTH AFTER 1 DAY Sepsis Event Note - Evaluation Sepsis Screening Result: No Definite Risk - Focused Exam Vital Signs: Vital Signs Temp Temp Pulse Resp BP Pulse Ox 11/12/20 12:00 36.6 C 67 17 118/77 97 11/12/20 07:35 36.0 C L 66 16 123/76 94 L 11/12/20 04:45 36.1 C 75 15 110/86 96 - Problem List & Annotations (1) Acute pyelonephritis SNOMED Code(s): 44907047 Code(s): N10 - ACUTE PYELONEPHRITIS Status: Acute Current Visit: Yes (2) Lesion of urinary bladder SNOMED Code(s): 349137543 Code(s): N32.9 - BLADDER DISORDER, UNSPECIFIED Status: Acute Current Visit: No (3) Pancreatic mass SNOMED Code(s): 539900912 Code(s): K86.89 - OTHER SPECIFIED DISEASES OF PANCREAS Status: Acute Current Visit: No (4) Pancreatic pseudocyst SNOMED Code(s): 329593078 Code(s): K86.3 - PSEUDOCYST OF PANCREAS Status: Acute Current Visit: No - Problem List Review Problem List Initiated/Reviewed/Updated: Yes - My Orders Last 24 Hours: My Active Orders 11/12/20 06:13 Blood Culture x2 Reflex Set [OM.PC] Stat 11/12/20 06:48 CULTURE BLOOD [BC] Stat 11/12/20 06:58 CULTURE BLOOD [BC] Stat 11/12/20 12:03 Dextromethorphan/guaiFENesin [Robitussin DM] 10 ml PO Q4H PRN 11/12/20 12:04 Docusate Sodium [Colace] 100 mg PO Q12H PRN 11/12/20 15:00 cefTRIAXone [Rocephin in Dextrose,Iso-Osm 2 GM/50 ML] 2 gm Premix Bag 1 bag IV Q24H - Plan Plan:: 65 yo male admitted for acute pyelonephritis. cont Rocephin. Oxycodone for pain control. Cultures are pending. Blood cultures 1 x 4 bottles positive for gram-positive cocci in clusters likely contaminant, follow-up on repeat blood cultures Follow-up on urine culture Possible DC tomorrow
[2020-11-12] MEDS: Acetaminophen 325 MG Tab PO PRN (18:06)
[2020-11-13 07:12] LABS: BLOOD UREA NITROGEN,BUN 12 mg/dL (7.0-18.0); CARBON DIOXIDE,CO2 23.7 mmol/L (21.0-32.0); CHLORIDE,CL 104 mmol/L (98-107); GLUCOSE RANDOM 94 mg/dL (74-106); POTASSIUM,K 4.5 mmol/L (3.5-5.1); SODIUM,NA 138 mmol/L (136-148)
[2020-11-13] MEDS: Sodium Chloride 0.9% 1,000 ML IV SCH (08:45)
[2020-11-13] MEDS ORDERED: Calcium Gluconate 10% 1 GM/10 ML SDV IV ONE ×2 (10:57→14:30)
[2020-11-13 12:42] VITALS: BP 135/79; PULSE 58
--- NOTE | 2020-11-13 13:40 | PCM.DCSUM1 ---
Discharge Summary - Hospital Course HPI Initial Comments: Patient is a 65-year-old male who presents emergency room with concern of left flank pain starting this morning. Upon arrival to the ED, patient was febrile 101.9 with positive CVA tenderness of the left, otherwise vitally stable and nontoxic on exam. CBC shows a mild leukocytosis of 11.15, otherwise mild derangements of CBC are unremarkable. CMP shows mild hyponatremia at 134, mild elevation of creatinine at 1.4, glucose mildly elevated 108, isolated total bilirubin elevation at 1.4, otherwise mild derangements of CMP unremarkable. Lipase normal. Lactate within normal limits. Urinalysis does show 4+ bacteria with 30-40 white blood cells, 15-20 red blood cells positive leukocyte Estrace positive nitrate concerning for urinary tract infection. Abdominal pelvic CT without contrast shows no acute abnormalities of the abdomen or pelvis. No hydronephrosis. No urolithiasis. 2 blood cultures obtained, and 1 g IV Rocephin given. Chest x-ray shows no acute cardiopulmonary process. Patient was admitted to the hospital for further management and IV Rocephin was continued. Urine culture was sent. Patient's 1 out of 4 bottles were positive for gram-positive cocci in clusters, likely contaminant, PCR testing for drug-resistant bacteria was n egative. Patient responded well to Rocephin. Patients symptoms significantly improved, he was able to tolerate diet pretty well, drinking fluids appropriately, urinating appropriately. Patient was feeling much better on day 3, urine culture was still not back, blood culture was still pending, the repeat blood cultures were negative. Given that patient responded well to Rocephin and the PCR testing for drug-resistant bacteria was negative, upon thorough discussion with patient he wanted to go home on oral antibiotics with strict instructions to come back in case his symptoms get worsened. Patient was told that he would be receiving a call from the hospital in case his cultures grew out something not being covered by current antibiotic. Patient was agreeable and comfortable with the plan. Patient was hemodynamically stable, labs were unremarkable and he was discharged home on oral antibiotics and recommended to follow-up with his PCP upon discharge. Diagnosis: Stroke: No - Discharge Data Discharge Date: 11/13/20 Discharge Disposition: Home, Self-Care 01 Condition: Good - Referral to Home Health Primary Care Physician: Americo Man MD - Discharge Diagnosis/Problem(s) (1) Acute pyelonephritis SNOMED Code(s): 30587418 ICD Code: N10 - ACUTE PYELONEPHRITIS Status: Acute Current Visit: Yes (2) Lesion of urinary bladder SNOMED Code(s): 321014381 ICD Code: N32.9 - BLADDER DISORDER, UNSPECIFIED Status: Acute Current Visit: No (3) Pancreatic mass SNOMED Code(s): 167534821 ICD Code: K86.89 - OTHER SPECIFIED DISEASES OF PANCREAS Status: Acute Current Visit: No (4) Pancreatic pseudocyst SNOMED Code(s): 188983230 ICD Code: K86.3 - PSEUDOCYST OF PANCREAS Status: Acute Current Visit: No - Patient Instructions Diet: Usual Diet as Tolerated Activity: As Tolerated Driving: May Drive Today Showering/Bathing: May Shower Notify Provider of: Fever, Increased Pain, Swelling and Redness, Drainage, Nausea and/or Vomiting - Discharge Plan Prescriptions/Med Rec: levoFLOXacin [Levaquin] 750 mg PO DAILY #7 tab Home Medications: Home Meds levoFLOXacin [Levaquin] 750 mg PO DAILY #7 tab 11/13/20 [Rx] Oxygen Therapy Mode: Room Air Patient Handouts: Pyelonephritis, Adult, [id number], Levofloxacin tablets Forms: ED Department Discharge Referrals: Dali Bee DO [Ordering Only Provider] - Americo Man MD [Primary Care Provider] - 11/23/20 10:00 am - Discharge Summary/Plan Comment DC Time >30 min.: No Total # of Minutes for Discharge Time: 20 - Patient Data Vitals - Most Recent: Last Vital Signs Temp 36.3 C 11/13/20 12:00 Pulse 58 L 11/13/20 12:00 Resp 16 11/13/20 12:00 BP 135/79 11/13/20 12:00 Pulse Ox 97 11/13/20 12:00 Weight - Most Recent: 97.296 kg I&O - Last 24 hours: Intake & Output 11/12/20 11/13/20 11/13/20 22:59 06:59 14:59 Intake Total 2075 600 Output Total 1675 1450 Balance 400 -850 Lab Results - Last 24 hrs: Laboratory Results - last 24 hr 11/13/20 11/13/20 Range/Units 05:31 05:31 WBC 5.59 (4.0-11.0) K/uL RBC 4.58 (4.50-5.90) M/uL Hgb 13.4 (13.0-17.0) g/dL Hct 38.9 (38.0-50.0) % MCV 84.9 (80.0-98.0) fL MCH 29.3 (27.0-32.0) pg MCHC 34.4 (31.0-37.0) g/dL RDW Std Deviation 41.1 (28.0-62.0) fl RDW Coeff of Bryn 13 (11.0-15.0) % Plt Count 215 (150-400) K/uL MPV 10.60 (7.40-12.00) fL Neut % (Auto) 57.9 (48.0-80.0) % Lymph % (Auto) 20.6 (16.0-40.0) % [place] % (Auto) 18.8 H (0.0-15.0) % Eos % (Auto) 2.3 (0.0-7.0) % Baso % (Auto) 0.4 (0.0-1.5) % Neut # (Auto) 3.2 (1.4-5.7) K/uL Lymph # (Auto) 1.2 (0.6-2.4) K/uL [place] # (Auto) 1.1 H (0.0-0.8) K/uL Eos # (Auto) 0.1 (0.0-0.7) K/uL Baso # (Auto) 0.0 (0.0-0.1) K/uL Nucleated RBC % 0.0 /100WBC Nucleated RBCs # 0 K/uL Sodium 138 (136-148) mmol/L Potassium 4.5 (3.5-5.1) mmol/L Chloride 104 (98-107) mmol/L Carbon Dioxide 23.7 (21.0-32.0) mmol/L BUN 12 (7.0-18.0) mg/dL Creatinine 1.1 (0.8-1.3) mg/dL Est Cr Clr Drug Dosing 63.43 mL/min Estimated GFR (MDRD) > 60.0 ml/min Glucose 94 (74-106) mg/dL Calcium 7.7 L (8.5-10.1) mg/dL COURTNEY Results - Last 24 hrs: Microbiology 11/12/20 06:48 Aerobic Blood Culture - Preliminary Blood - Venous NO GROWTH AFTER 1 DAY Anaerobic Blood Culture - Preliminary NO GROWTH AFTER 1 DAY 11/12/20 06:58 Aerobic Blood Culture - Preliminary Blood - Venous - Lab Draw NO GROWTH AFTER 1 DAY Anaerobic Blood Culture - Preliminary NO GROWTH AFTER 1 DAY 11/10/20 16:30 Bacteria Detection (PCR) - Final Blood 11/10/20 16:30 Blood Culture Identification Panel - Preliminary Blood Gram Positive Cocci In Clustrs 11/10/20 16:30 Aerobic Blood Culture - Final Blood - Venous - Lab Draw Anaerobic Blood Culture - Preliminary NO GROWTH AFTER 2 DAYS 11/10/20 16:23 Aerobic Blood Culture - Preliminary Blood - Venous NO GROWTH AFTER 2 DAYS Anaerobic Blood Culture - Preliminary NO GROWTH AFTER 2 DAYS Med Orders - Current: Current Medications Acetaminophen (Acetaminophen 325 Mg Tab) 650 mg PO Q6H PRN PRN Reason: Pain/Fever Last Admin: 11/12/20 18:06 Dose: 650 mg Documented by: Docusate Sodium (Docusate Sodium 100 Mg Cap) 100 mg PO Q12H PRN PRN Reason: Constipation Last Admin: 11/12/20 14:54 Dose: 100 mg Documented by: Guaifenesin/Dextromethorphan (Guaifenesin/Dextromethorphan 100-10 Mg/5 Ml Soln 10 Ml Cup) 10 ml PO Q4H PRN PRN Reason: Cough Ceftriaxone Sodium/Dextrose 2 (gm/ Premix) 50 mls @ 100 mls/hr IV Q24H DEXTER Last Admin: 11/12/20 14:55 Dose: 100 mls/hr Documented by: Ondansetron HCl (Ondansetron 4 Mg/2 Ml Sdv) 4 mg IVPUSH Q4H PRN PRN Reason: Nausea Last Admin: 11/11/20 17:44 Dose: 4 mg Documented by: Oxycodone HCl (Oxycodone 5 Mg Tab) 5 mg PO Q4H PRN PRN Reason: Pain Last Admin: 11/11/20 16:00 Dose: 5 mg Documented by: Discontinued Medications Calcium Gluconate (Calcium Gluconate 10% 1 Gm/10 Ml Sdv) 1 gm IV ONETIME ONE Stop: 11/13/20 10:58 Sodium Chloride (Normal Saline) 1,000 mls @ 999 mls/hr IV BOLUS ONE Stop: 11/10/20 15:43 Last Admin: 11/10/20 14:50 Dose: 999 mls/hr Documented by: Ceftriaxone Sodium/Dextrose 1 (gm/ Premix) 50 mls @ 100 mls/hr IV ONETIME ONE Stop: 11/10/20 16:27 Last Admin: 11/10/20 16:41 Dose: 100 mls/hr Documented by: Sodium Chloride (Normal Saline) 1,000 mls @ 999 mls/hr IV STAT ONE Stop: 11/10/20 19:35 Last Admin: 11/10/20 18:39 Dose: 999 mls/hr Documented by: Sodium Chloride (Normal Saline) 1,000 mls @ 125 mls/hr IV ASDIRECTED [facility] Last Admin: 11/13/20 08:45 Dose: 125 mls/hr Documented by: Ceftriaxone Sodium/Dextrose 1 (gm/ Premix) 50 mls @ 100 mls/hr IV Q24H [facility] Last Admin: 11/11/20 15:50 Dose: 100 mls/hr Documented by: Ketorolac Tromethamine (Ketorolac 30 Mg/Ml Sdv) 30 mg IVPUSH ONETIME ONE Stop: 11/10/20 14:44 Last Admin: 11/10/20 14:50 Dose: 30 mg Documented by: Ondansetron HCl (Ondansetron 4 Mg/2 Ml Sdv) 4 mg IVPUSH ONETIME ONE Stop: 11/10/20 14:44 Last Admin: 11/10/20 14:50 Dose: 4 mg Documented by:
== END 2020-11-13 15:00 | disposition home or self-care (01) | DRG 690 ==
LOC: MW.ED 13:29 → MW.MS 18:31 → OBSVTOIN 11-11 14:53 → MW.MS 11-11 19:35
PROVIDERS: ADMIT Internal Medicine; ATTEND Internal Medicine
DX: N10 Acute pyelonephritis (principal); K86.3 Pseudocyst of pancreas; N32.9 Bladder disorder, unspecified; K86.89 Other specified diseases of pancreas; H54.7 Unspecified visual loss; K21.9 Gastro-esophageal reflux disease without esophagitis; N40.0 Benign prostatic hyperplasia without lower urinary tract symptoms; E66.9 Obesity, unspecified; Z20.822 Contact with and (suspected) exposure to COVID-19; K57.90 Diverticulosis of intestine, part unspecified, without perforation or abscess without bleeding; H91.90 Unspecified hearing loss, unspecified ear; Z87.442 Personal history of urinary calculi; Z90.49 Acquired absence of other specified parts of digestive tract; Z87.891 Personal history of nicotine dependence; Z85.51 Personal history of malignant neoplasm of bladder
CPT/HCPCS: 36415; 71045; 71045-26; 74176; 74176-26; 80048; 80053; 81001; 83605; 83690; 85025; 87040; 87086; 87088; 87150; 87186; 87804; 96365; 96375; 99218; 99231; 99232; 99238; 99284; 99285-25; A9270-GY; G0378; J0610; J0696; J1885; J2405; J7030; U0002

== ENCOUNTER 2021-01-15 16:42 | Emergency (ER) | payer OTHER ==
[2021-01-15] MEDS ORDERED: Diphtheria,Pertussis(Acell),Tetanus Vaccine 0.5 ML Syringe IM ONE (16:49)
[2021-01-15] MEDS ORDERED: Lidocaine 1% PF 2 ML SDV INJECT ONE (16:57)
[2021-01-15] MEDS ORDERED: Bacitracin Oint 1 GM U/D Packet TOP ONE (16:57)
--- NOTE | 2021-01-15 17:00 | EDM.PDOC ---
ED HPI GENERAL MEDICAL PROBLEM - General Chief Complaint: Upper Extremity Injury/Pain Stated Complaint: CUT RT THUMB Time Seen by Provider: 01/15/21 16:49 Source of Information: Reports: Patient History Limitations: Reports: No Limitations - History of Present Illness INITIAL COMMENTS - FREE TEXT/NARRATIVE: HISTORY AND PHYSICAL: History of present illness: Patient is a 65-year-old male who presents to the emergency room with complaints of a laceration to the of the right. He states he was moving his hand downward when it grazed across a piece of metal resulting in a 2.5 cm C-shaped laceration. Unsure of his last tetanus update. Not active bleeding. Patient denies any fever, chills, headache, change in vision, syncope or near syncope. Denies any chest pain, back pain, shortness of breath or cough. Denies any GI or symptoms. No recent travel or sick contacts. Review of systems: As per history of present illness and below otherwise all systems reviewed and negative. Past medical history: As per history of present illness and as reviewed below otherwise noncontributory. Surgical history: As per history of present illness and as reviewed below otherwise n oncontributory. Social history: See social history for further information Family history: As per history of present illness and as reviewed below otherwise noncontributory. Physical exam: General: Well developed and well nourished 65-year-old male. Alert and orientated x 3. Nontoxic in appearance and in no acute distress. Vital signs are stable and have been reviewed by me. Nursing notes were reviewed. HEENT: Atraumatic, normocephalic, pupils equal and reactive bilaterally, negative for conjunctival pallor or scleral icterus, mucous membranes moist, TMs normal bilaterally, throat clear, neck supple, nontender, trachea midline. No drooling or trismus noted. No meningeal signs. No hot potato voice noted. Lungs: Clear to auscultation bilaterally. No wheezes, rales, or rhonchi. Chest n ontender. Normal work of breathing, no accessory muscles used. Heart: S1S2, regular rate and rhythm without overt murmur, gallops, or rubs. No JVD. No peripheral edema Abdomen: Soft, nondistended, nontender. Skin: 2.5 cm C-shaped laceration to right mid thumb. Does not involve the nailbed. Remaining skin is intact, warm, dry. No lesions or rashes noted. Hematologic: No petechiae or purpra. Mucosa appropriate color and normal nail bed color and refill. Extremities: See skin for details, good flexion and extension of the stated digit, moves all extremities per self without difficulty or deficits, negative for cords or calf pain. Neurovascular unremarkable. Neuro: Awake, alert, oriented. Cranial nerves II through XII unremarkable. Cerebellum unremarkable. Motor and sensory unremarkable throughout. Exam nonfocal. Psychiatric: Mood and affect are appropriate. Normal thought process. Answering questions appropriately. Please note that the patient was seen and evaluated during the 2019 SARS-CoV-2 novel coronavirus pandemic period. Community viral transmission is ongoing at time of this encounter and the emergency department is operating under pandemic response procedures. Medical Decision Making: Patient is a 65-year-old male who presents to the emergency room with complaints of a laceration to his right mid thumb. No active bleeding although will require stitches. Due to the mechanism of injury I will get an x-ray to make sure there is no fracture. 1% lidocaine was used to anesthetize the area. Wound wash and chlorhexidine was used to thoroughly cleanse and irrigate the site. 4-0 nylon, #6 interrupted sutures were placed. Patient tolerated well. Bacitracin nonstick dressing applied. Tetanus has been updated. X-ray shows no acute findings. Discussed abx, he would like a short course given his extensive health history. I have talked with the patient about today's findings, in addition to providing specific details for plan of care. Reassessment at the time of disposition demonstrates that the patient is in no acute distress. The patient is stable for discharge, counseling was provided and we discussed in great detail signs and symptoms that would prompt them to return to the Emergency Department. Medication, follow up and supportive care measures were reviewed and discussed. Voices understanding and is agreeable to plan of care. Denies any further questions or concerns at this time. Diagnostics: X-ray Therapeutics: Tdap, Lidocaine, Bacitracin Prescription: Keflex Impression: Laceration Plan: 1. Keep the area clean and dry. X-ray shows no evidence of fracture. Continue to monitor for signs of infection. Sutures to be removed in 7-10 days. 2. Tylenol and/or ibuprofen as needed for pain management. 3. Please follow-up with your primary care provider for suture removal, or return if you are unable to schedule an appointment. If your symptoms should worsen, new symptoms develop or any of the signs and symptoms we discussed should arise please return to the emergency room or call 911 (if needed). Definitive disposition and diagnosis as appropriate pending reevaluation and review of above. - Related Data Allergies Allergy/AdvReac Type Severity Reaction Status Date / Time polyethylene glycol 3350 Allergy Nausea and Verified 01/15/21 16:52 [From Miralax] Vomiting Home Meds: Home Meds cephALEXin [Keflex] 500 mg PO BID 5 Days #10 cap 01/15/21 [Rx] Past Medical History - Past Health History Medical/Surgical History: Denies Medical/Surgical History HEENT History: Reports: Impaired Vision, Other (See Below) Other HEENT History: wears glasses, hearing loss-s/p left tympanoplasty Cardiovascular History: Reports: None Respiratory History: Reports: None Gastrointestinal History: Reports: Diverticulosis, GERD, Other (See Below) Other Gastrointestinal History: occasional heartburn- takes OTC Prilosec Genitourinary History: Reports: BPH, Renal Calculus Other Genitourinary History: bladder cancer 3 months ago- grade 2 noninvasive Musculoskeletal History: Reports: None Neurological History: Reports: Seizure Other Neuro History: 22 years ago, had 5 seizures in 5 days (due to "exhaustion") Psychiatric History: Reports: None Endocrine/Metabolic History: Reports: Obesity/BMI 30+ Hematologic History: Reports: None Immunologic History: Reports: None Oncologic (Cancer) History: Reports: Bladder Dermatologic History: Reports: None - Infectious Disease History Infectious Disease History: Reports: Chicken Pox, Measles, Mumps Other Infectious Disease History: when a child - Past Surgical History Head Surgeries/Procedures: Reports: None HEENT Surgical History: Reports: Other (See Below) Other HEENT Surgeries/Procedures: surgery on ear drum (left tympanoplasty) Cardiovascular Surgical History: Reports: None Respiratory Surgical History: Reports: None GI Surgical History: Reports: Cholecystectomy, Colonoscopy, EGD, ERCP, Hernia Repair/Other Other GI Surgeries/Procedures: biopsy of pancreas- found scar tissue Male Surgical History: Reports: Kidney Stone Extraction, Renal Calculus, TURBT-Transurethral Resection of Bladder Tumor Endocrine Surgical History: Reports: None Neurological Surgical History: Reports: None Musculoskeletal Surgical History: Reports: None Oncologic Surgical History: Reports: None Dermatological Surgical History: Reports: None Social & Family History - Family History Family Medical History: No Pertinent Family History HEENT: Reports: None Cardiac: Reports: None GI: Reports: None Oncologic: Reports: Colon - Caffeine Use Caffeine Use: Reports: Coffee Review of Systems - Review of Systems Review Of Systems: Comprehensive ROS is negative, except as noted in HPI. ED EXAM, GENERAL - Physical Exam Exam: See Below (See dictation) ED TRAUMA EXTREMITY PROCEDURES - Laceration/Wound Repair Right thumb Lac/Wound Length In cm: 2.5 Appearance: Subcutaneous, Irregular, Clean Distal NVT: Neuro & Vascular Intact, No Tendon Injury Anesthetic Type: Local Local Anesthesia - Lidocaine (Xylocaine): 1% Plain Local Anesthetic Volume: 2cc Skin Prep: Chlorhexidine (Hibiciens), Saline, Sterile Drape Saline Irrigation (cc's): 500 Exploration/Debridement/Repair: Wound Explored, In a Bloodless Field, Explored to Base, No Foreign Material Found Closed With: Sutures Suture Size: 4-0 # of Sutures: 6 Drain Placement: No Sterile Dressing Applied: Provider Tetanus Status Addressed: Yes Complications: No Course - Vital Signs Last Recorded V/S: Last Vital Signs Temp 97 F 01/15/21 16:52 Pulse 80 01/15/21 16:52 Resp 20 01/15/21 16:52 BP 149/105 H 01/15/21 16:52 Pulse Ox 97 01/15/21 16:52 - Orders/Labs/Meds Orders: Active Orders 24 hr Category Date Time Status Vaccine to be Administered/Admin Charge [RC] ASDIRECTED Care 01/15/21 16:50 Active Fingers Thumb Rt F5 [CR] Stat Exams 01/15/21 16:57 Ordered Meds: Medications Discontinued Medications Generic Name Dose Route Start Last Admin Trade Name Freq PRN Reason Stop Dose Admin Bacitracin 1 dose 01/15/21 16:57 01/15/21 17:28 Bacitracin Oint 1 Gm U/D Packet TOP 01/15/21 16:58 1 dose ONETIME ONE Administration Diphtheria/Tetanus/Acell Pertussis 0.5 ml 01/15/21 16:49 01/15/21 17:28 Diphtheria,Pertussis(Acell),Tetanus Vaccine 0.5 Ml Syringe IM 01/15/21 16:50 0.5 ml .ONCE ONE Administration Lidocaine HCl 2 ml 01/15/21 16:57 01/15/21 17:28 Lidocaine 1% Pf 2 Ml Sdv INJECT 01/15/21 16:58 2 ml ONETIME ONE Administration Departure - Departure Time of Disposition: 17:25 Disposition: Home, Self-Care 01 Clinical Impression: Laceration of finger Qualifiers: Encounter type: initial encounter Finger: thumb Damage to nail status: without damage Foreign body presence: without foreign body Laterality: right Qualified Code(s): S61.011A - Laceration without foreign body of right thumb without damage to nail, initial encounter - Discharge Information Prescriptions: cephALEXin [Keflex] 500 mg PO BID 5 Days #10 cap Instructions: Laceration Care, Adult, [id number] Referrals: Americo Man MD [Primary Care Provider] - Forms: ED Department Discharge Additional Instructions: The following information is given to patients seen in the emergency department who are being discharged to home. This information is to outline your options for follow-up care. We provide all patients seen in our emergency department with a follow-up referral. The need for follow-up, as well as the timing and circumstances, are variable depending upon the specifics of your emergency department visit. If you don't have a primary care physician on staff, we will provide you with a referral. We always advise you to contact your personal physician following an emergency department visit to inform them of the circumstance of the visit and for follow-up with them and/or the need for any referrals to a consulting specialist. The emergency department will also refer you to a specialist when appropriate. This referral assures that you have the opportunity for follow-up care with a specialist. All of these measure are taken in an effort to provide you with optimal care, which includes your follow-up. Under all circumstances we always encourage you to contact your private physician who remains a resource for coordinating your care. When calling for follow-up care, please make the office aware that this follow-up is from your recent emergency room visit. If for any reason you are refused follow-up, please contact the [facility] Emergency Department at and asked to speak to the emergency department charge nurse. [facility] [address] [place] [id number] [facility] [address] [place] [address] Thank you for choosing the [facility] emergency department in [place] for your medical needs today. It was a pleasure caring for you. Today you were seen in the emergency department for skin laceration Your prescription was electronically sent to: [facility] 1. Keep the area clean and dry. Continue to monitor for signs of infection. Sutures to be removed in 7-10 days. 2. Tylenol and/or ibuprofen as needed for pain management. 3. Please follow-up with your primary care provider for suture removal, or return if you are unable to schedule an appointment. If your symptoms should worsen, new symptoms develop or any of the signs and symptoms we discussed should arise please return to the emergency room or call 911 (if needed). Sepsis Event Note (ED) - Evaluation Sepsis Screening Result: No Definite Risk - Focused Exam Vital Signs: Vital Signs Temp Pulse Resp BP Pulse Ox 01/15/21 16:52 97 F 80 20 149/105 H 97 - My Orders Last 24 Hours: My Active Orders 01/15/21 16:50 Vaccine to be Administered/Admin Charge [RC] ASDIRECTED 01/15/21 16:57 Fingers Thumb Rt F5 [CR] Stat - Assessment/Plan Last 24 Hours: My Active Orders 01/15/21 16:50 Vaccine to be Administered/Admin Charge [RC] ASDIRECTED 01/15/21 16:57 Fingers Thumb Rt F5 [CR] Stat
--- NOTE | 2021-01-15 18:43 | CR ---
Indication: Crush injury, laceration. Technique: Three views, 4 films Comparison: None Findings: Bones: Alignment is normal. No fractures or bone lesions. Joint spaces: Small osteophytes at the interphalangeal joint of the thumb. Soft tissues: Soft tissue swelling distal right thumb. No radiopaque foreign body. Dictated by Bryan Maldonado MD @ 01/15/2021 6:42:56 PM (Electronically Signed)
[2021-01-15 18:51] VITALS: BP 121/84; PULSE 76
== END 2021-01-15 18:00 | disposition home or self-care (01) ==
LOC: MW.ED 16:42
DX: S61.011A Laceration without foreign body of right thumb without damage to nail, initial encounter (principal); E66.9 Obesity, unspecified; Z68.34 Body mass index [BMI] 34.0-34.9, adult; Z23 Encounter for immunization; Z88.8 Allergy status to other drugs, medicaments and biological substances; W26.8XXA Contact with other sharp object(s), not elsewhere classified, initial encounter
CPT/HCPCS: 12001; 73140-26-F5; 73140-F5; 90471; 90715; 99283-25

== ENCOUNTER 2022-05-18 12:56 | Emergency (ER) | payer OTHER ==
[2022-05-18] MEDS ORDERED: Lactated Ringers 1,000 ML IV SCH (15:30)
[2022-05-18] MEDS ORDERED: Sodium Chloride 0.9% 2.5 ML Syringe FLUSH PRN (15:30)
[2022-05-18] MEDS ORDERED: Sodium Chloride 0.9% 10 ML Syringe FLUSH PRN (15:30)
[2022-05-18 16:06] LABS: CARBON DIOXIDE,CO2 27.9 mmol/L (21.0-32.0); POTASSIUM,K 4.1 mmol/L (3.5-5.1)
[2022-05-18] MEDS ORDERED: methylPREDNISolone Sodium Succinate 40 MG/1 ML SDV IVPUSH STA (16:19)
[2022-05-18] MEDS ORDERED: diphenhydrAMINE 50 MG/ML SDV IVPUSH STA (16:20)
[2022-05-18 16:22] LABS: CORONAVIRUS COVID-19 NAA NEGATIVE (NEGATIVE); INFLUENZA A NAA NEGATIVE (NEGATIVE); INFLUENZA B NAA NEGATIVE (NEGATIVE); RESPIRATORY SYNCYTIAL VIR NAA NEGATIVE (NEGATIVE)
[2022-05-18] MEDS ORDERED: Iopamidol 755 MG/ML 500 ML Multipack Bottle IVPUSH ONE (18:01)
[2022-05-18 19:54] VITALS: BP 107/75; PULSE 71
== END 2022-05-18 19:53 | disposition home or self-care (01) ==
LOC: MW.ED 12:56
DX: K63.89 Other specified diseases of intestine (principal); K76.0 Fatty (change of) liver, not elsewhere classified; C67.9 Malignant neoplasm of bladder, unspecified; E66.9 Obesity, unspecified; Z91.041 Radiographic dye allergy status; Z87.891 Personal history of nicotine dependence; Z20.822 Contact with and (suspected) exposure to COVID-19; Z68.33 Body mass index [BMI] 33.0-33.9, adult
CPT/HCPCS: 0241U; 36415; 74177; 74177-26; 80053; 81003; 83605; 83690; 85025; 96361; 96374; 96375; 99284; 99284-25; J1200; J2920; J3490; J7120; Q9967

== ENCOUNTER 2022-07-26 17:24 | Emergency (ER) | payer OTHER ==
[2022-07-26] MEDS ORDERED: Codeine/Promethazine 10-6.25 MG/5 ML Syrup 5 ML UD Syringe PO STA (17:41)
[2022-07-26] MEDS ORDERED: Albuterol/Ipratropium 3.0-0.5 MG/3 ML Neb Soln NEB ONE (17:41)
[2022-07-26] MEDS ORDERED: methylPREDNISolone Sodium Succinate 125 MG/2 ML SDV IVPUSH ONE (17:41)
[2022-07-26 18:21] LABS: BASE EXCESS VENOUS 3.6 (-2.0-3.0); BASOPHILS PERCENT AUTO 0.5 % (0.0-1.5); EOSINOPHILS ABSOLUTE AUTO 0.1 K/uL (0.0-0.7); EOSINOPHILS PERCENT AUTO 1.6 % (0.0-7.0); HEMATOCRIT 44.8 % (38.0-50.0); HEMOGLOBIN 15.7 g/dL (13.0-17.0); LYMPHOCYTES ABSOLUTE AUTO 1.1 K/uL (0.6-2.4); LYMPHOCYTES PERCENT AUTO 18.9 % (16.0-40.0); MEAN CORPUSCULAR HEMOGLOBIN 29.1 pg (27.0-32.0); MEAN CORPUSCULAR VOLUME 83.1 fL (80.0-98.0); MONOCYTES ABSOLUTE AUTO 0.9 K/uL (0.0-0.8); MONOCYTES PERCENT AUTO 16.1 % (0.0-15.0); NEUTROPHILS ABSOLUTE AUTO 3.6 K/uL (1.4-5.7); NEUTROPHILS PERCENT AUTO 62.9 % (48.0-80.0); NRBC ABSOLUTE 0 K/uL; PH,VENOUS 7.4 (7.31-7.41); PLATELET COUNT,PLT 190 K/uL (150-400); RED BLOOD CELL COUNT 5.39 M/uL (4.50-5.90); WHITE BLOOD CELL COUNT,WBC 5.65 K/uL (4.0-11.0)
[2022-07-26 19:18] LABS: ALBUMIN 3.6 g/dL (3.4-5.0); BILIRUBIN TOTAL 0.9 mg/dL (0.2-1.0); CALCIUM 8.7 mg/dL (8.5-10.1); CARBON DIOXIDE,CO2 26.9 mmol/L (21.0-32.0); CREATININE 1.2 mg/dL (0.8-1.3); EST CRCL DRUG DOSING (CG) 56.61 mL/min; POTASSIUM,K 3.8 mmol/L (3.5-5.1); PROTEIN TOTAL,TP 7.1 g/dL (6.4-8.2)
[2022-07-26] MEDS ORDERED: Levofloxacin 500 MG Tab PO ONE (20:03)
[2022-07-26 20:35] VITALS: BP 129/80; PULSE 78
== END 2022-07-26 20:10 | disposition home or self-care (01) ==
LOC: MW.ED 17:24
DX: R55 Syncope and collapse (principal); J40 Bronchitis, not specified as acute or chronic; E66.9 Obesity, unspecified; Z68.33 Body mass index [BMI] 33.0-33.9, adult; Z91.041 Radiographic dye allergy status; Z88.8 Allergy status to other drugs, medicaments and biological substances
CPT/HCPCS: 36415; 70450; 71045; 80053; 82803; 83605; 83880; 84484; 85025; 85379; 87040; 93005; 96374; 99285; A9270; J2930; 93010; 99283; J3490; J7620-GY

== ENCOUNTER 2023-04-20 08:02 | Emergency (ER) | payer MEDICARE, OTHER ==
[2023-04-20 08:49] LABS: APPEARANCE,URINE CLEAR; BILIRUBIN,URINE NEGATIVE (NEGATIVE); COLOR,URINE YELLOW; GLUCOSE,URINE NEGATIVE (NEGATIVE); KETONES,URINE NEGATIVE (NEGATIVE); LEUKOCYTE ESTERASE,URINE NEGATIVE (NEGATIVE); NITRITE,URINE NEGATIVE (NEGATIVE); OCCULT BLOOD,URINE NEGATIVE (NEGATIVE); PROTEIN,URINE NEGATIVE (NEGATIVE); UROBILINOGEN,URINE 0.2 EU/dL (<2.0)
[2023-04-20] MEDS: Sodium Chloride 0.9% 2.5 ML Syringe FLUSH PRN (08:54)
[2023-04-20] MEDS: Sodium Chloride 0.9% 10 ML Syringe FLUSH PRN (08:54)
[2023-04-20 08:56] LABS: BASOPHILS ABSOLUTE AUTO 0.05 K/uL (0.00-0.20); BASOPHILS PERCENT AUTO 0.6 % (0.0-1.0); EOSINOPHILS ABSOLUTE AUTO 0.14 K/uL (0.00-0.45); EOSINOPHILS PERCENT AUTO 1.7 % (0.0-6.0); HEMATOCRIT 46.5 % (42.0-52.0); HEMOGLOBIN 15.8 g/dL (14.0-18.0); IMMATURE GRAN ABSOLUTE AUTO 0.03 K/uL (0.00-0.05); IMMATURE GRAN PERCENT AUTO 0.4 % (0.0-0.4); LYMPHOCYTES ABSOLUTE AUTO 1.48 K/uL (1.00-4.80); LYMPHOCYTES PERCENT AUTO 18.4 % (24.0-44.0); MEAN CORPUSCULAR HEMOGLOBIN 28.6 pg (28.0-32.0); MEAN CORPUSCULAR VOLUME 84.1 fL (83.0-99.0); MEAN PLATELET VOLUME 9.4 fL (9.4-12.4); MONOCYTES ABSOLUTE AUTO 0.74 K/uL (0.00-0.80); MONOCYTES PERCENT AUTO 9.2 % (0.0-8.0); NEUTROPHILS ABSOLUTE AUTO 5.62 K/uL (1.80-7.70); NEUTROPHILS PERCENT AUTO 69.7 % (41.0-71.0); PLATELET COUNT,PLT 265 K/uL (150-400); RED BLOOD CELL COUNT 5.53 M/uL (4.52-5.90); WHITE BLOOD CELL COUNT,WBC 8.06 K/uL (3.9-11.3)
[2023-04-20 09:18] LABS: ALBUMIN 3.8 g/dL (3.4-5.0); BILIRUBIN TOTAL 1.1 mg/dL (0.2-1.0); CALCIUM 8.8 mg/dL (8.5-10.1); CARBON DIOXIDE,CO2 26.6 mmol/L (21.0-32.0); CREATININE 1.2 mg/dL (0.8-1.3); EST CRCL DRUG DOSING (CG) 54.64 mL/min; PROTEIN TOTAL,TP 7.5 g/dL (6.4-8.2)
[2023-04-20] MEDS: Iopamidol 755 MG/ML 500 ML Multipack Bottle IVPUSH STA (09:50)
[2023-04-20 14:32] VITALS: BP 126/89; PULSE 78
== END 2023-04-20 14:30 | disposition home or self-care (01) ==
LOC: MW.ED 08:02
DX: R10.12 Left upper quadrant pain (principal); E66.9 Obesity, unspecified; Z68.34 Body mass index [BMI] 34.0-34.9, adult; Z91.041 Radiographic dye allergy status; Z88.8 Allergy status to other drugs, medicaments and biological substances
CPT/HCPCS: 36415; 74177; 76870; 80053; 81003; 83690; 85025; 93976; 99284; J3490; Q9967

== ENCOUNTER 2024-02-16 15:53 | Emergency (ER) | payer MEDICARE, OTHER ==
[2024-02-16] MEDS: Ondansetron 4 MG Tab.DIS PO ONE (16:21)
[2024-02-16] MEDS: Acetaminophen/HYDROcodone 325-5 MG Tab PO ONE (16:21)
[2024-02-16 16:50] LABS: BASOPHILS ABSOLUTE AUTO 0.05 K/uL (0.00-0.20); BASOPHILS PERCENT AUTO 0.5 % (0.0-1.0); EOSINOPHILS ABSOLUTE AUTO 0.15 K/uL (0.00-0.45); EOSINOPHILS PERCENT AUTO 1.6 % (0.0-6.0); HEMATOCRIT 45.9 % (42.0-52.0); HEMOGLOBIN 15.7 g/dL (14.0-18.0); IMMATURE GRAN ABSOLUTE AUTO 0.04 K/uL (0.00-0.05); IMMATURE GRAN PERCENT AUTO 0.4 % (0.0-0.4); LYMPHOCYTES ABSOLUTE AUTO 1.67 K/uL (1.00-4.80); LYMPHOCYTES PERCENT AUTO 17.7 % (24.0-44.0); MEAN CORPUSCULAR HEMOGLOBIN 28.2 pg (28.0-32.0); MEAN CORPUSCULAR HGB CONC 34.2 g/dL (32.0-36.0); MEAN CORPUSCULAR VOLUME 82.4 fL (83.0-99.0); MEAN PLATELET VOLUME 9.2 fL (9.4-12.4); MONOCYTES ABSOLUTE AUTO 0.94 K/uL (0.00-0.80); NEUTROPHILS ABSOLUTE AUTO 6.58 K/uL (1.80-7.70); NEUTROPHILS PERCENT AUTO 69.8 % (41.0-71.0); PLATELET COUNT,PLT 268 K/uL (150-400); RED BLOOD CELL COUNT 5.57 M/uL (4.52-5.90); WHITE BLOOD CELL COUNT,WBC 9.43 K/uL (3.9-11.3)
[2024-02-16 17:18] LABS: BILIRUBIN,URINE NEGATIVE (NEGATIVE); COLOR,URINE YELLOW; GLUCOSE,URINE >=1000 mg/dL (NEGATIVE); KETONES,URINE NEGATIVE (NEGATIVE); LEUKOCYTE ESTERASE,URINE NEGATIVE (NEGATIVE); NITRITE,URINE NEGATIVE (NEGATIVE); OCCULT BLOOD,URINE LARGE (NEGATIVE); PH,URINE 5.5 (5.0-8.0); PROTEIN,URINE TRACE mg/dL (NEGATIVE); UROBILINOGEN,URINE 0.2 EU/dL (<2.0)
[2024-02-16 17:19] LABS: APPEARANCE,URINE HAZY
[2024-02-16 17:19] LABS: A/G RATIO 0.9 (0.9-1.6); ALBUMIN 3.6 g/dL (3.4-5.0); BILIRUBIN TOTAL 0.8 mg/dL (0.2-1.0); CALCIUM 9.4 mg/dL (8.5-10.1); CARBON DIOXIDE,CO2 30.3 mmol/L (21.0-32.0); CREATININE 1.4 mg/dL (0.8-1.3); EST CRCL DRUG DOSING (CG) 47.87 mL/min; POTASSIUM,K 3.9 mmol/L (3.5-5.1); PROTEIN TOTAL,TP 7.5 g/dL (6.4-8.2)
[2024-02-16 17:24] LABS: BACTERIA,URINE FEW (NEGATIVE); EPITHELIAL CELLS,URINE NOT SEEN (NONE-FEW); MUCUS,URINE LIGHT (NONE-MOD)
[2024-02-16] MEDS: Tamsulosin 0.4 MG Cap.ER PO ONE (17:32)
[2024-02-16 17:34] VITALS: BP 131/81; PULSE 84
== END 2024-02-16 17:43 | disposition home or self-care (01) ==
LOC: MW.ED 15:53
DX: N13.2 Hydronephrosis with renal and ureteral calculous obstruction (principal); E66.9 Obesity, unspecified; Z88.8 Allergy status to other drugs, medicaments and biological substances; Z91.041 Radiographic dye allergy status; Z79.899 Other long term (current) drug therapy; Z75.8 Other problems related to medical facilities and other health care; Z68.31 Body mass index [BMI] 31.0-31.9, adult
CPT/HCPCS: 36415; 74176; 80053; 81001; 85025; 99284; A9270

== ENCOUNTER 2024-09-28 12:41 | Observation (INO) | payer MEDICARE ==
[2024-09-28 13:27] LABS: BASOPHILS ABSOLUTE AUTO 0.06 K/uL (0.00-0.20); BASOPHILS PERCENT AUTO 0.7 % (0.0-1.0); EOSINOPHILS ABSOLUTE AUTO 0.12 K/uL (0.00-0.45); EOSINOPHILS PERCENT AUTO 1.5 % (0.0-6.0); IMMATURE GRAN ABSOLUTE AUTO 0.03 K/uL (0.00-0.05); IMMATURE GRAN PERCENT AUTO 0.4 % (0.0-0.4); LYMPHOCYTES ABSOLUTE AUTO 1.87 K/uL (1.00-4.80); LYMPHOCYTES PERCENT AUTO 23.1 % (24.0-44.0); MEAN PLATELET VOLUME 9.6 fL (9.4-12.4); MONOCYTES ABSOLUTE AUTO 0.92 K/uL (0.00-0.80); MONOCYTES PERCENT AUTO 11.3 % (0.0-8.0); NEUTROPHILS ABSOLUTE AUTO 5.11 K/uL (1.80-7.70); NEUTROPHILS PERCENT AUTO 63.0 % (41.0-71.0); NRBC ABSOLUTE 0.00 K/uL (0.00-0.02); NRBC PERCENT 0.0 /100WBC (0.0-0.2); PLATELET COUNT,PLT 271 K/uL (150-400); RED BLOOD CELL COUNT 5.51 M/uL (4.52-5.90); WHITE BLOOD CELL COUNT,WBC 8.11 K/uL (3.9-11.3)
[2024-09-28 13:28] LABS: APPEARANCE,URINE SLT CLOUDY; GLUCOSE,URINE NEGATIVE (NEGATIVE); OCCULT BLOOD,URINE LARGE (NEGATIVE)
[2024-09-28] MEDS: diphenhydrAMINE 50 MG/ML SDV IVPUSH ONE (13:31)
[2024-09-28] MEDS: methylPREDNISolone Sodium Succinate 125 MG/2 ML SDV IVPUSH ONE (13:31)
[2024-09-28] MEDS: Ketorolac 30 MG/ML SDV IVPUSH ONE (13:32)
[2024-09-28 13:39] LABS: EPITHELIAL CELLS,URINE OCCASIONAL (NONE-FEW)
[2024-09-28 13:53] LABS: LACTIC ACID 2.2 mmol/L (0.4-2.0)
[2024-09-28 13:56] LABS: A/G RATIO 1.1 (0.9-1.6); ALANINE AMINOTRANSFERASE,ALT 65.0 IU/L (14-63); ASPARTATE AMNIOTRANSFERASE,AST 40.0 IU/L (15-37); BILIRUBIN TOTAL 1.0 mg/dL (0.2-1.0); BLOOD UREA NITROGEN,BUN 23.0 mg/dL (7.0-18.0); CARBON DIOXIDE,CO2 27.7 mmol/L (21.0-32.0); CHLORIDE,CL 100.0 mmol/L (98-107); CREATININE 1.5 mg/dL (0.8-1.3); EST CRCL DRUG DOSING (CG) 44.07 mL/min; GLUCOSE RANDOM 154.0 mg/dL (74-106); POTASSIUM,K 4.2 mmol/L (3.5-5.1); PROTEIN TOTAL,TP 7.5 g/dL (6.4-8.2); SODIUM,NA 136.0 mmol/L (136-148)
[2024-09-28 14:04] LABS: ESTIMATED GFR 50.0 mL/min (>60)
[2024-09-28] MEDS ORDERED: Sodium Chloride 0.9% 10 ML Syringe FLUSH PRN (16:44)
[2024-09-28] MEDS ORDERED: Sodium Chloride 0.9% 2.5 ML Syringe FLUSH PRN (16:44)
[2024-09-28] MEDS ORDERED: Ondansetron 4 MG/2 ML SDV IVPUSH PRN (16:44)
[2024-09-28] MEDS ORDERED: 50% Dextrose in Water 50 ML Syringe IVPUSH PRN (16:54)
[2024-09-28] MEDS ORDERED: hydrALAZINE 20 MG/ML SDV IVPUSH PRN (18:49)
[2024-09-29 05:30] LABS: BASOPHILS ABSOLUTE AUTO 0.01 K/uL (0.00-0.20); BASOPHILS PERCENT AUTO 0.1 % (0.0-1.0); EOSINOPHILS ABSOLUTE AUTO 0.00 K/uL (0.00-0.45); EOSINOPHILS PERCENT AUTO 0.0 % (0.0-6.0); IMMATURE GRAN ABSOLUTE AUTO 0.02 K/uL (0.00-0.05); IMMATURE GRAN PERCENT AUTO 0.2 % (0.0-0.4); LYMPHOCYTES ABSOLUTE AUTO 0.71 K/uL (1.00-4.80); LYMPHOCYTES PERCENT AUTO 7.6 % (24.0-44.0); MEAN PLATELET VOLUME 9.8 fL (9.4-12.4); MONOCYTES ABSOLUTE AUTO 0.23 K/uL (0.00-0.80); MONOCYTES PERCENT AUTO 2.5 % (0.0-8.0); NEUTROPHILS ABSOLUTE AUTO 8.33 K/uL (1.80-7.70); NEUTROPHILS PERCENT AUTO 89.6 % (41.0-71.0); NRBC ABSOLUTE 0.00 K/uL (0.00-0.02); NRBC PERCENT 0.0 /100WBC (0.0-0.2); PLATELET COUNT,PLT 235 K/uL (150-400); RED BLOOD CELL COUNT 4.75 M/uL (4.52-5.90); WHITE BLOOD CELL COUNT,WBC 9.30 K/uL (3.9-11.3)
[2024-09-29 05:48] LABS: BLOOD UREA NITROGEN,BUN 25.0 mg/dL (7.0-18.0); CARBON DIOXIDE,CO2 23.0 mmol/L (21.0-32.0); CHLORIDE,CL 102.0 mmol/L (98-107); CREATININE 1.7 mg/dL (0.8-1.3); EST CRCL DRUG DOSING (CG) 38.88 mL/min; GLUCOSE RANDOM 222.0 mg/dL (74-106); POTASSIUM,K 4.6 mmol/L (3.5-5.1); SODIUM,NA 137.0 mmol/L (136-148)
[2024-09-29 05:49] LABS: ESTIMATED GFR 43.0 mL/min (>60)
[2024-09-29 08:16] VITALS: PULSE 78
[2024-09-29 11:01] VITALS: BP 124/78
== END 2024-09-29 11:53 ==
LOC: MW.ED 12:41 → MW.MS 16:39
PROVIDERS: ADMIT Family Medicine; ATTEND Family Medicine
DX: N17.9 Acute kidney failure, unspecified (principal); N20.0 Calculus of kidney; K85.90 Acute pancreatitis without necrosis or infection, unspecified; E11.9 Type 2 diabetes mellitus without complications; E66.9 Obesity, unspecified; R74.8 Abnormal levels of other serum enzymes; Z68.30 Body mass index [BMI] 30.0-30.9, adult; Z79.84 Long term (current) use of oral hypoglycemic drugs; Z91.041 Radiographic dye allergy status; Z88.8 Allergy status to other drugs, medicaments and biological substances
CPT/HCPCS: 36415; 74177; 80048; 80053; 81001; 82947; 83605; 83690; 83735; 85025; A9270; J1200; J1308; J1815; J1885; J2270; J2919; J7030; 96361; 96374; 96375; 99285-25